=== PATIENT | male | born 1955 | race Caucasian/White ===

== ENCOUNTER 2020-07-10 00:46 | Observation (INO) | payer MEDICARE, OTHER ==
[~2020-07-10] VITALS: Ht 167.6 cm; Wt 89.2 kg
[2020-07-10 01:08] VITALS: BP 107/68
[2020-07-10] MEDS ORDERED: KETO10DR6 EACHEYE (01:28)
[2020-07-10] MEDS: LORazepam 1 MG TABLET PO PRN ×2 (01:42→07:47)
[2020-07-10] MEDS ORDERED: PARO20TA3 PO (02:19)
[2020-07-10] MEDS ORDERED: MAG355OR11 PO (02:19)
[2020-07-10] MEDS ORDERED: LOPE2CAP3 PO (02:19)
[2020-07-10] MEDS ORDERED: SENN1TAB99 PO (02:19)
[2020-07-10] MEDS ORDERED: POTA10TA12 PO (02:19)
[2020-07-10] MEDS ORDERED: FERR325T14 PO (02:19)
[2020-07-10] MEDS ORDERED: HYDR-2145 PO (02:19)
[2020-07-10] MEDS ORDERED: ATOR20TA58 PO (02:19)
[2020-07-10] MEDS ORDERED: ALBU2.5V8 IH (02:19)
[2020-07-10] MEDS ORDERED: GUAI600T47 PO (02:19)
[2020-07-10] MEDS ORDERED: POLY17PO5 PO (02:19)
[2020-07-10] MEDS ORDERED: ACET325T21 PO (02:19)
[2020-07-10] MEDS ORDERED: GUAI118L53 PO (02:19)
[2020-07-10] MEDS ORDERED: OXYB15TA18 PO (02:19)
[2020-07-10] MEDS ORDERED: MEMA10TA PO (02:19)
[2020-07-10] MEDS ORDERED: CALC400T33 PO (02:19)
[2020-07-10] MEDS ORDERED: ASPI-889 PO (02:19)
[2020-07-10] MEDS ORDERED: CLON1TAB PO (02:19)
[2020-07-10] MEDS ORDERED: EUCA1LOZ MM (02:19)
[2020-07-10] MEDS ORDERED: AMLO-186 PO (02:19)
[2020-07-10] MEDS ORDERED: POLY15DR27 EACHEYE (02:19)
[2020-07-10] MEDS ORDERED: MINE3.5O4 EACHEYE (02:19)
[2020-07-10] MEDS ORDERED: DIVA250T PO (02:19)
[2020-07-10] MEDS ORDERED: LISI40TA6 PO (02:19)
[2020-07-10] MEDS ORDERED: CHOL200019 PO (02:19)
[2020-07-10] MEDS ORDERED: RISP1TAB88 PO (02:19)
[2020-07-10] MEDS ORDERED: METF500T16 PO (02:19)
[2020-07-10 05:51] VITALS: BP 139/89
--- NOTE | 2020-07-10 06:23 | EKG ---
[address] [address] Test Date: 2020-07-10 Test Time: 04:58:21 Pat Name: YANIRA RENE Department: Room: 107 A Gender: M Salvationist: : 1955 Requested By: HUI GARCIA Order Number: [id number] Reading MD: Measurements Intervals [place] Rate: 62 P: AL: QRS: 54 QRSD: 108 T: 41 QT: 412 QTc: 420 Interpretive Statements IRREGULAR RHYTHM, NO P-WAVE FOUND OTHERWISE NORMAL ECG RI6.01 No previous ECG available for comparison
[2020-07-10 06:24] LABS: BASO % 1 % (0-3); EOS # 0.3 x10^3/uL (0.0-0.7); EOS % 4 % (0-3); HEMOGLOBIN 14.4 g/dL (13.0-17.5); LYMPH # 1.4 x10^3/uL (1.0-4.8); LYMPH % 20 % (24-48); MEAN CORPUSCULAR HEMOGLOBIN 30 pg (25-35); MEAN CORPUSCULAR HGB CONC 34 g/dL (31-37); MEAN CORPUSCULAR VOLUME 88 fL (79-100); MONO # 0.7 x10^3/uL (0.0-1.1); MONO % 9 % (0-9); NEUT # 4.8 x10^3uL (1.8-7.7); NEUT % 66 % (31-73); PLATELET COUNT 213 x10^3/uL (140-400); RED BLOOD COUNT 4.79 x10^6/uL (4.30-5.70); RED CELL DISTRIBUTION WIDTH 14.9 % (11.5-14.5); WHITE BLOOD COUNT 7.3 x10^3/uL (4.0-11.0)
[2020-07-10 06:36] LABS: ALBUMIN 3.6 g/dL (3.4-5.0); ALBUMIN/GLOBULIN RATIO 0.9 (1.0-1.7); CALCIUM 8.4 mg/dL (8.5-10.1); CREATININE 0.8 mg/dL (0.7-1.3); GFR 117.4; MAGNESIUM 1.6 mg/dL (1.8-2.4); POTASSIUM 3.4 mmol/L (3.5-5.1); TOTAL BILIRUBIN 0.7 mg/dL (0.2-1.0); TOTAL PROTEIN 7.7 g/dL (6.4-8.2)
[2020-07-10] MEDS ORDERED: LORazepam 1 MG TABLET PO ONE (08:30)
[2020-07-10 10:10] VITALS: BP 151/83
--- NOTE | 2020-07-10 10:42 | HP ---
ATTENDING PHYSICIAN: Dr. Harvey. HISTORY OF PRESENT ILLNESS: We are asked to admit this patient to the medical unit prior to going to the [facility] Unit. The patient is a 65-year-old gentleman from a shelter in [place], [place]. He has underlying mental retardation, cognitive delay and essential hypertension with diabetes. He is very manic, anxious, yelling out, screening at night, talking loudly, physically aggressive. He was walking out of his room as he nurses constantly what is going to happen. He was sent here for further evaluation at the [facility]. PAST MEDICAL HISTORY: As noted. ALLERGIES: He has allergies to DOXYCYCLINE, exact reaction is unclear. CURRENT MEDICATIONS: Include Tylenol, albuterol, amlodipine, aspirin, Lipitor, calcium, cholecalciferol, clonazepam, Depakote, ferrous sulfate, guaifenesin, hydrochlorothiazide, ketoprofen, lisinopril, loperamide, Namenda, metformin, oxybutynin, Paxil, MiraLax, artificial tears, potassium, risperidone and senna. SOCIAL HISTORY: He is a nonsmoker and nondrinker. He has never . One brother is a durable power of commercial attorney. REVIEW OF SYSTEMS: Unobtainable except for the issues that brought him here. PHYSICAL EXAMINATION: GENERAL: When I saw him this is a very anxious and fatuous gentleman who was unable to stay in his room. INITIAL VITAL SIGNS: Showed a blood pressure 130/80, pulse is 59 and regular, afebrile, oxygen saturation 97% on room air. HEENT: Head is without trauma. Pupils are reactive. Sclerae nonicteric. Oropharynx clear. NECK: Supple. LUNGS: Good breath sounds. HEART: Regular heart tones. ABDOMEN: Soft. EXTREMITIES: Without edema. NEUROLOGIC FINDING: Pleasantly confused. We cannot do a full neurologic assessment due to patient's mentation. SKIN: Warm and dry.. PERTINENT LABORATORY STUDIES: Hemoglobin is 14.4 g/dL, white count 7300. Electrolytes: Sodium 138, potassium 3.4 mEq, creatinine 0.8. Transaminases and liver panel all within normal range. Serology for COVID is pending. ASSESSMENT: A 65-year-old gentleman with; 1. Dementia. 2. Cognitive delay. 3. Anxiety with behavioral issues. 4. Essential hypertension. PLAN: 1. Admit to the inpatient unit. 2. Await coronavirus swab. 3. Continue home meds. 4. Diet as tolerated. MARCO A/LATANYA/GEORGE DR: MARCO A/leilani TID: [id number]
--- NOTE | 2020-07-10 14:08 | DS ---
DATE OF DISCHARGE: 07/10/2020 ATTENDING PHYSICIAN: Dr. Harvey. FINAL DISCHARGE DIAGNOSES: 1. Agitation with manic phase. 2. Developmental delay. 3. Mental retardation. 4. Essential hypertension. HISTORY AND PHYSICAL: This 65-year-old gentleman, [facility] resident, has multiple psychiatric issues, developmental delay and anxiety. He had behavioral issues. He was slated to go to the [facility]. He was admitted here for evaluation and screening for COVID-19. He has no COVID symptoms. PHYSICAL EXAMINATION: Please see the dictated note. PERTINENT LABORATORY AND X-RAY STUDIES: CBC and chemistry panel within normal range. Coronavirus swab is still pending. COURSE IN THE HOSPITAL: The patient was admitted. He was given some p.r.n. Ativan. He was very agitated, walking around and really has no insight. Because of his issues and staffing, he was discharged to the [facility] with coronavirus swab pending, most likely will be negative. No changes on his home meds. He needs to continue his Tylenol, albuterol, amlodipine, aspirin, Lipitor, calcium, Klonopin, Depakote, ferrous sulfate, guaifenesin, hydrochlorothiazide, ketoprofen, Namenda, metformin, mineral oil, oxybutynin, paroxetine, MiraLax, potassium, risperidone and senna doses unchanged. He was discharged then from our hospital in stable condition with explicit drug and followup care. MARCO A/LAATNYA/MARC DR: MARCO A/leilani TID: [id number] CC: BRE WYLIE MD
[2020-07-10] MEDS ORDERED: LOPE2TAB27 PO (15:45)
[2020-07-10 16:31] LABS: THYROID STIM HORMONE (TSH) 2.004 uIU/mL (0.358-3.740)
[2020-07-10 23:07] LABS: HEMOGLOBIN A1C 5.4 % (4.8-5.6)
== END 2020-07-10 11:15 ==
LOC: 1 SOUTH 00:46
PROVIDERS: ADMIT Hospitalist; ATTEND Hospitalist
DX: F03.90 Unspecified dementia, unspecified severity, without behavioral disturbance, psychotic disturbance, mood disturbance, and anxiety (principal); Z20.822 Contact with and (suspected) exposure to COVID-19; R45.1 Restlessness and agitation; F79 Unspecified intellectual disabilities; I10 Essential (primary) hypertension; E11.9 Type 2 diabetes mellitus without complications; F41.9 Anxiety disorder, unspecified; Z79.82 Long term (current) use of aspirin; Z79.84 Long term (current) use of oral hypoglycemic drugs
CPT/HCPCS: 36415; 80053; 80061; 82306; 82607; 82947; 83036; 83735; 84443; 85025; 85379; 86592; 93005; G0378; G0379; U0003

== ENCOUNTER 2020-07-10 11:18 | Inpatient (IN) | payer MEDICARE, OTHER ==
[~2020-07-10] VITALS: Ht 167.6 cm; Wt 95.8 kg
[2020-07-10 11:15] VITALS: BP 102/69
[~2020-07-10 11:18] MED LIST: ACET325T21 PO; ALBU2.5V8 IH; AMLO-186 PO; ASPI-889 PO; ATOR20TA58 PO; CALC400T33 PO; CHOL200019 PO; CLON1TAB PO; DIVA250T PO; EUCA1LOZ MM; FERR325T14 PO; GUAI118L53 PO; GUAI600T47 PO; HYDR-2145 PO; KETO10DR6 EACHEYE; LISI40TA6 PO; LOPE2CAP3 PO; MAG355OR11 PO; MEMA10TA PO; METF500T16 PO; MINE3.5O4 EACHEYE; OXYB15TA18 PO; PARO20TA3 PO; POLY15DR27 EACHEYE; POLY17PO5 PO; POTA10TA12 PO; RISP1TAB88 PO; SENN1TAB99 PO
[2020-07-10] MEDS ORDERED: METHYL SALICYLATE/MENTHOL TOPICAL OINTMENT 57GM TUBE. TP PRN (12:30)
[2020-07-10] MEDS ORDERED: ACETAMINOPHEN 325 MG TABLET PO PRN (12:30)
[2020-07-10] MEDS ORDERED: MAGNESIUM HYDROXIDE 2,400 MG/30 ML ORAL.SUSP. PO PRN (12:30)
[2020-07-10] MEDS ORDERED: MAG HYDROX/AL HYDROX/SIMETH 30 ML ORAL.SUSP PO PRN ×2 (12:30→16:30)
[2020-07-10 12:58] LABS: VAL ACID 3 mcg/mL (50-100)
[2020-07-10] MEDS ORDERED: POLYVINYL ALCOHOL 1.4% OPHTH SOLUTION 15ML BOTTLE. OU PRN (15:30)
[2020-07-10] MEDS ORDERED: POLYETHYLENE GLYCOL 3350 17 GM PACKET. PO PRN (15:30)
[2020-07-10] MEDS ORDERED: SENNOSIDES/DOCUSATE 8.6/50MG TABLET. PO PRN (15:30)
[2020-07-10] MEDS ORDERED: ALBUTEROL SULFATE 2.5 MG/3 ML NEBU. IH PRN (15:30)
[2020-07-10] MEDS ORDERED: LOPERAMIDE 2 MG CAPSULE PO PRN ×2 (15:30→16:30)
[2020-07-10 15:34] VITALS: BP 125/78
[2020-07-10] MEDS ORDERED: LOPE2TAB27 PO (15:45)
[2020-07-10] MEDS ORDERED: CALCIUM CARBONATE 500 MG TAB.CHEW PO PRN (16:15)
[2020-07-10] MEDS ORDERED: BENZOCAINE/MENTHOL LOZNGE 18'S BOX. PO PRN (16:15)
[2020-07-10] MEDS ORDERED: guaiFENesin DM 200MG/20MG 10 ML SYRUP PO PRN (16:15)
[2020-07-10] MEDS: ATORVASTATIN CALCIUM 20 MG TABLET PO SCH (20:30)
[2020-07-10] MEDS: risperiDONE 1 MG TABLET. PO SCH (20:30)
[2020-07-10] MEDS: OXYBUTYNIN CHLORIDE 5 MG TABLET PO SCH (20:30)
[2020-07-10] MEDS: MEMANTINE 10 MG TABLET. PO SCH (20:30)
[2020-07-10] MEDS: FERROUS SULFATE 325 MG TABLET. PO SCH (20:30)
[2020-07-10] MEDS: clonazePAM 2 MG TABLET PO SCH (20:30)
[2020-07-10] MEDS: KETOTIFEN FUMARATE 0.025% OPHT SOLUTION BOTTLE. OU SCH (20:30)
[2020-07-10] MEDS: DIVALPROEX ER 250 MG TAB.ER.24H. PO SCH (20:30)
[2020-07-10 21:26] LABS: BILIRUBIN,URINE NEG (NEG); CLARITY,URINE CLEAR; COLOR,URINE YELLOW; GLUCOSE,URINE NEG (NEG); NITRITE,URINE NEG (NEG)
[2020-07-10 21:27] LABS: BACTERIA,URINE 0 /HPF (0-FEW); RBC,URINE 0 /HPF (0-2); SQUAMOUS EPITHELIAL CELL,UR OCC /LPF; WBC,URINE 0 /HPF (0-4)
--- NOTE | 2020-07-10 22:49 | PDOC ---
Exam Note: Anthony Note: Please also refer to the separate dictated note~for this date of service dictated separately.~Patient seen individually. Discussed the patient with Nursing staff reviewed the chart.~Reviewed interim history and current functioning. Reviewed vital signs,~Labs/ Radiology~and current medications noted below. Continue current treatment with the changes noted in the dictated addendum note Assessment: Vital Signs/I&O: Vital Signs Date Time Temp Pulse Resp B/P (MAP) Pulse Ox O2 Delivery O2 Flow Rate FiO2 07/10/20 15:34 97.5 74 16 125/78 (94) 99 07/10/20 11:15 Room Air Labs: Laboratory Tests Test 07/10/20 05:50 07/10/20 20:41 Valproic Acid Level 3 mcg/mL (50-100) L Valproic Acid Last Dose Date 07/10/20 Valproic Acid Last Dose Time 0900 Urine Collection Type Unknown Urine Color Yellow Urine Clarity Clear Urine pH 6.5 Urine Specific [place] 1.015 Urine Protein Neg (NEG-TRACE) Urine Glucose (UA) Neg mg/dL (NEG) Urine Ketones (Stick) Neg mg/dL (NEG) Urine Blood Trace (NEG) Urine Nitrite Neg (NEG) Urine Bilirubin Neg (NEG) Urine Urobilinogen Dipstick 2.0 mg/dL (0.2 mg/dL) Urine Leukocyte Esterase Neg (NEG) Urine RBC 0 /HPF (0-2) Urine WBC 0 /HPF (0-4) Urine Squamous Epithelial Cells Occ /LPF Urine Bacteria 0 /HPF (0-FEW) Current Medications: Meds: Current Medications Medications (Trade) Dose Ordered Sig/Davida Route PRN Reason Start Time Stop Time Status Last Admin Dose Admin Atorvastatin Calcium (Lipitor) 20 mg QHS PO 07/10/20 21:00 07/10/20 20:30 Clonazepam (KlonoPIN) 2 mg TID PO 07/10/20 21:00 07/10/20 20:30 Divalproex Sodium (Depakote Er) 250 mg TID PO 07/10/20 21:00 07/10/20 20:30 Ferrous Sulfate (Feosol) 325 mg BID PO 07/10/20 21:00 07/10/20 20:30 Memantine (Namenda) 10 mg BID PO 07/10/20 21:00 07/10/20 20:30 Risperidone (RisperDAL) 1 mg BID PO 07/10/20 21:00 07/10/20 20:30 Oxybutynin Chloride (Ditropan) 5 mg [id number] PO 07/10/20 21:00 07/10/20 20:30 I have reviewed the current psychotropics carefully including drug interactions. Risk benefit ratio favors no change other than as noted in my dictated progress note. Diagnosis: Problems: (1) Caroline BRE WYLIE MD July 10, 2020 22:49
[2020-07-11 02:07] LABS: THYROXINE 8.9 ug/dL (4.5-12.0)
[2020-07-11 06:28] VITALS: BP 126/71
[2020-07-11] MEDS: risperiDONE 1 MG TABLET. PO SCH ×2 (08:14→20:12)
[2020-07-11] MEDS: OXYBUTYNIN CHLORIDE 5 MG TABLET PO SCH ×3 (08:14→20:13)
[2020-07-11] MEDS: ASPIRIN ENTERIC COATED 81 MG TABLET.DR. PO SCH (08:14)
[2020-07-11] MEDS: hydroCHLOROthiazide 25 MG TABLET PO SCH (08:14)
[2020-07-11] MEDS: clonazePAM 2 MG TABLET PO SCH ×3 (08:14→20:13)
[2020-07-11] MEDS: CHOLECALCIFEROL (VITAMIN D3) 1,000 UNIT TABLET PO SCH (08:15)
[2020-07-11] MEDS: amLODIPine BESYLATE 5 MG TABLET PO SCH (08:15)
[2020-07-11] MEDS: FERROUS SULFATE 325 MG TABLET. PO SCH ×2 (08:15→20:12)
[2020-07-11] MEDS: PARoxetine 20 MG TABLET PO SCH (08:15)
[2020-07-11] MEDS: POTASSIUM CHLORIDE 10 MEQ TABLET.ER. PO SCH (08:15)
[2020-07-11] MEDS: MEMANTINE 10 MG TABLET. PO SCH ×2 (08:15→20:13)
[2020-07-11] MEDS: LISINOPRIL 20 MG TABLET PO SCH (08:16)
[2020-07-11] MEDS: KETOTIFEN FUMARATE 0.025% OPHT SOLUTION BOTTLE. OU SCH ×2 (08:16→20:12)
[2020-07-11] MEDS: DIVALPROEX ER 250 MG TAB.ER.24H. PO SCH ×3 (08:16→20:12)
[2020-07-11] MEDS: metFORMIN 500 MG TABLET PO SCH (08:16)
[2020-07-11] MEDS: MINERAL OIL/PETROLATUM,WHITE OPHTH OINT 3.5GM TUBE. OU SCH (12:00)
[2020-07-11 16:14] VITALS: BP 144/75
[2020-07-11] MEDS: ATORVASTATIN CALCIUM 20 MG TABLET PO SCH (20:13)
--- NOTE | 2020-07-11 22:01 | PDOC ---
Exam Note: Anthony Note: Please also refer to the separate dictated note~for this date of service dictated separately.~Patient seen individually. Discussed the patient with Nursing staff reviewed the chart.~Reviewed interim history and current functioning. Reviewed vital signs,~Labs/ Radiology~and current medications noted below. Continue current treatment with the changes noted in the dictated addendum note Assessment: Vital Signs/I&O: Vital Signs Date Time Temp Pulse Resp B/P (MAP) Pulse Ox O2 Delivery O2 Flow Rate FiO2 07/11/20 16:14 98.0 74 20 144/75 (98) 98 Room Air I & O 07/10/20 07/10/20 07/11/20 15:00 23:00 07:00 Intake Total 240 ml 480 ml 120 ml Balance 240 ml 480 ml 120 ml Current Medications: Meds: Current Medications Medications (Trade) Dose Ordered Sig/Davida Route PRN Reason Start Time Stop Time Status Last Admin Dose Admin Acetaminophen (Tylenol) 650 mg PRN Q6HRS PRN PO MILD PAIN / TEMP > 100.3'F 07/10/20 12:30 Multi-Ingredient Ointment (Analgesic [place]) 1 marvel PRN QID PRN TP MUSCLE PAIN 07/10/20 12:30 Al Hydroxide/Mg Hydroxide (Mylanta Plus Xs) 15 ml PRN AFTMEALHC PRN PO DYSPEPSIA 07/10/20 12:30 Cancel Magnesium Hydroxide (Milk Of Magnesia) 2,400 mg PRN QHS PRN PO 2ND CHOICE CONSTIPATION 07/10/20 12:30 Albuterol Sulfate (Ventolin) 2.5 mg PRN Q4HRS PRN IH FOR ASTHMA 07/10/20 15:30 Amlodipine Besylate (Norvasc) 5 mg DAILY PO 07/11/20 09:00 07/11/20 08:15 Aspirin (Aspirin Enteric Coated) 81 mg DAILY08 PO 07/11/20 08:00 07/11/20 08:14 Atorvastatin Calcium (Lipitor) 20 mg QHS PO 07/10/20 21:00 07/11/20 20:13 Clonazepam (KlonoPIN) 2 mg TID PO 07/10/20 21:00 07/11/20 20:13 Divalproex Sodium (Depakote Er) 250 mg TID PO 07/10/20 21:00 07/11/20 20:12 Ferrous Sulfate (Feosol) 325 mg BID PO 07/10/20 21:00 07/11/20 20:12 Guaifenesin (Mucinex Er) 600 mg PRN Q12HR PRN PO nasal congestion 07/10/20 15:30 Hydrochlorothiazide (Hydrodiuril) 25 mg DAILYWBKFT PO 07/11/20 08:00 07/11/20 08:14 Ketotifen Fumarate (Zaditor) 1 drop BID OU 07/10/20 21:00 07/11/20 20:12 Loperamide HCl (Imodium) 4 mg PRN DAILY PRN PO FIRST OCCURANCE OF DIARRHEA 07/10/20 15:30 Memantine (Namenda) 10 mg BID PO 07/10/20 21:00 07/11/20 20:13 Metformin HCl (Glucophage) 500 mg DAILYWBKFT PO 07/11/20 08:00 07/11/20 08:16 Paroxetine HCl (Paxil) 40 mg DAILY PO 07/11/20 09:00 07/11/20 08:15 Polyethylene Glycol (miraLAX) 17 gm PRN DAILY PRN PO 1ST CHOICE CONSTIPATION 07/10/20 15:30 Artificial Tears (Artificial Tears) 1 drop PRN Q1HR PRN OU itchy eyes 07/10/20 15:30 Potassium Chloride (Klor-Con) 10 meq DAILY08 PO 07/11/20 08:00 07/11/20 08:15 Risperidone (RisperDAL) 1 mg BID PO 07/10/20 21:00 07/11/20 20:12 Senna/Docusate Sodium (Senna Plus) 2 tab PRN BID PRN PO 3RD CHOICE CONSTIPATION 07/10/20 15:30 Calcium Carbonate/ Glycine (Tums) 1,000 mg PRN Q4HRS PRN PO HEARTBURN / GAS 07/10/20 16:15 Vitamin D (Vitamin D3) 2,000 unit DAILY PO 07/11/20 09:00 07/11/20 08:15 Throat Lozenges (Cepacol Sore Throat Lozenge) 1 danna PRN Q2HR PRN PO SORE THROAT 07/10/20 16:15 Guaifenesin (Robitussin Dm) 10 ml PRN Q4HRS PRN PO COUGH 07/10/20 16:15 Lisinopril (Prinivil) 40 mg DAILY PO 07/11/20 09:00 07/11/20 08:16 Loperamide HCl (Imodium) 2 mg PRN Q1HR PRN PO DIARRHEA 07/10/20 16:30 Al Hydroxide/Mg Hydroxide (Mylanta Plus Xs) 20 ml PRN Q4HRS PRN PO INDIGESTION 07/10/20 16:30 Multi-Ingred Cream/Lotion/Oil/ Oint (Artificial Tears Eye Ointment) 1 marvel NOON OU 07/11/20 12:00 07/11/20 12:00 Oxybutynin Chloride (Ditropan) 5 mg [id number] PO 07/10/20 21:00 07/11/20 20:13 Olanzapine (ZyPREXA ZYDIS) 2.5 mg PRN Q2HRS PRN PO PSYCHOSIS 07/10/20 20:00 Current Medications Medications (Trade) Dose Ordered Sig/Davida Route PRN Reason Start Time Stop Time Status Last Admin Dose Admin Amlodipine Besylate (Norvasc) 5 mg DAILY PO 07/11/20 09:00 07/11/20 08:15 Aspirin (Aspirin Enteric Coated) 81 mg DAILY08 PO 07/11/20 08:00 07/11/20 08:14 Hydrochlorothiazide (Hydrodiuril) 25 mg DAILYWBKFT PO 07/11/20 08:00 07/11/20 08:14 Metformin HCl (Glucophage) 500 mg DAILYWBKFT PO 07/11/20 08:00 07/11/20 08:16 Paroxetine HCl (Paxil) 40 mg DAILY PO 07/11/20 09:00 07/11/20 08:15 Potassium Chloride (Klor-Con) 10 meq DAILY08 PO 07/11/20 08:00 07/11/20 08:15 Vitamin D (Vitamin D3) 2,000 unit DAILY PO 07/11/20 09:00 07/11/20 08:15 Lisinopril (Prinivil) 40 mg DAILY PO 07/11/20 09:00 07/11/20 08:16 Multi-Ingred Cream/Lotion/Oil/ Oint (Artificial Tears Eye Ointment) 1 marvel NOON OU 07/11/20 12:00 07/11/20 12:00 I have reviewed the current psychotropics carefully including drug interactions. Risk benefit ratio favors no change other than as noted in my dictated progress note. Diagnosis: Problems: (1) OCD (obsessive compulsive disorder) BRE WYLEI MD July 11, 2020 22:01
--- NOTE | 2020-07-11 22:55 | HP ---
ADMIT DATE: 07/10/2020 PSYCHIATRIC ADMISSION HISTORY/EVALUATION This late entry date of service 07/10 covers elements not covered in my initial note 07/10. I met with the patient evening of 07/10. Discussed with nursing staff, reviewed the chart previously discussed the patient with Yaima Kendall program proposals coordinator and reviewed referral information and criteria for admission. IDENTIFYING DATA: Patient is a 65-year-old male referred to us from [place], [place] on account of increasing manic symptoms with worsening anxiety, yelling out, screaming at night, talking loudly, physically aggressive extremely obsessive, ruminative, repetitive and disruptive on the unit. He had been sent to the Emergency Room and has failed prior inpatient psychiatric hospitalization in the past at [facility] in [place] in May of this year. Reportedly, the patient has mild mental retardation, significant insomnia and a past history of alcohol abuse. CHIEF COMPLAINT: "I need to get the telephone. I need to call my brother. I need to get the telephone. I need to call my brother." The patient has obsessive, ruminative, repetitive with little to no space boundary, putting his face, right next to mine, making the above statements with saliva putting out of his mouth. He has been admitted by his brother Bogdan Garcia who is his legal guardian. HISTORY OF PRESENT ILLNESS: The patient has a history of the above diagnoses and presenting behaviors. Additionally, he has had mood swings, obsessiveness has been mocked and very pronounced and causing significant disruption in his functioning. No active suicidal or homicidal ideation. He has a history of mood swings, questionable history of bipolar disorder. PAST PSYCHIATRIC HISTORY: As above. PAST MEDICAL HISTORY: Positive for hypertension, type 2 diabetes mellitus, history of anemia. PAST SURGICAL HISTORY: Alcohol abuse. CODE STATUS: DNR. ALLERGIES: DOXYCYCLINE. Accu-Cheks daily until A1c comes back. Diet is diabetic. MEDICATIONS: Takes medications whole, ambulates independently. Current psychotropics Klonopin 2 mg t.i.d., Depakote 250 mg t.i.d., valproic acid level on 07/10 is 3 subtherapeutic, Namenda 10 mg b.i.d., Paxil 40 mg a day, Risperdal 1 mg b.i.d., Zyprexa was added p.r.n. psychosis and agitation. FAMILY HISTORY: Noncontributory. SOCIAL HISTORY: Past history of alcohol abuse. No physical, sexual or elder abuse history is noted. He is not known to be a perpetrator. Reaction to hospitalization. Patient somewhat oblivious to this. REVIEW OF SYSTEMS: No CV, , pulmonary, eye, ENT system symptoms on review. Reliability varies. MENTAL STATUS EXAM: Patient is oriented to himself at times and situation. Insight limited. Judgment marginal, language function intact. Attention span short. Mood and affect extremely labile, obsessive, ruminative, paranoid. No active suicidal or homicidal ideation. LABORATORY DATA: Reviewed. IMPRESSION: Possible bipolar disorder, mixed with psychotic features, intellectual disability, mild anxiety disorder unspecified, OCD, impulse control disorder. Rest of diagnoses as above. PLAN: Admit to the Geropsychiatry Unit at [facility]. I will see the patient daily individually from a psychiatric standpoint, medical followup with Dr. Hernandes/Dr. Harvey. Continue current psychotropics, adjust Depakote to reach therapeutic level. Consider reducing the Klonopin, changing Paxil perhaps to Luvox, adjusting the Seroquel, possibly in place of Risperdal. We will make decisions post baseline assessment. Estimated length of stay 10-12 days. DISPOSITION: Plans back to correction when stable. Get past psychiatric records from [facility]. BRENNAN/LALY DR: Mesha TID: [id number]
--- NOTE | 2020-07-12 01:44 | CONS ---
DATE OF CONSULTATION: 07/11/2020 HISTORY OF PRESENT ILLNESS: The patient is a 65-year-old male patient who was admitted directly to [facility] on account of being manic with increased anxiety, yelling out, screaming at nighttime, talking loudly and physically aggressive, all this on a background of mild mental retardation, cognitive delay together with obsessive compulsive disorder, who was admitted for inpatient psychiatric stabilization. PAST MEDICAL HISTORY: Significant for hypertension, type 2 diabetes, hyperlipidemia. PAST SURGICAL HISTORY: Significant for right ankle fracture, status post open reduction internal fixation. He has also had a colonoscopy. FAMILY HISTORY: Noncontributory. SOCIAL HISTORY: He does not smoke, drink alcohol or use recreational drugs. ALLERGIES: He is allergic to DOXYCYCLINE. MEDICATIONS: He is currently on the following medication: He is on albuterol sulfate 2 puffs every 4 hours, ferrous sulfate 325 mg twice a day, atorvastatin calcium 20 mg at bedtime, amlodipine 5 mg daily. He is on lisinopril 40 mg once a day, aspirin 81 mg once a day, acetaminophen 650 mg every 4 hours as needed, clonazepam for Klonopin 2 mg 3 times a day, divalproex sodium 250 mg 3 times a day, paroxetine 40 mg once a day, risperidone 1 mg twice a day, Namenda 10 mg twice a day, potassium chloride 10 mEq once a day, hydrochlorothiazide 25 mg once a day. He is on ____ DM 10 mL every 4 hours, Mucinex 600 mg twice a day, quetiapine fumarate 1 drop to both eyes twice a day, eucalyptus menthol cough drops as needed. He is on Systane nighttime eye ointment 1 application to both eyes at nighttime, Artificial tears 1 drop to both eyes every 4 hours as needed, calcium carbonate 1000 mg every 4 hours. He is on Maalox 20 mL after meals and as needed, loperamide 4 mg daily as needed, polyethylene glycol 17 grams daily, Senna-S 2 tablets twice a day, metformin 500 mg once a day, oxybutynin chloride 15 mg at bedtime, cholecalciferol vitamin D 50 mcg once a day. PHYSICAL EXAMINATION: GENERAL: When I examined him, he was sitting comfortably in his chair, in no apparent respiratory distress. There was no pallor, jaundice, cyanosis, thyromegaly, jugular distention, no lower limb edema. VITAL SIGNS: His heart rate was 74, blood pressure is 144/75, temperature was 98, respiratory rate 20, and oxygen saturation was 98%. HEAD, EYES, EARS, NOSE, AND THROAT: Normocephalic, atraumatic. NECK: Supple. HEART: Normal first and second heart sounds, no gallop, no murmur. CHEST: Clear to auscultation. No crepitation or rhonchi. ABDOMEN: Distended, soft, nontender. NEUROLOGIC: He is oriented. Cranial nerves are intact. He moves extremities without difficulty, ambulates without assistance or assistive devices. LABORATORY DATA: His lab work showed that his total T4 and total T3 are normal. Urinalysis essentially unremarkable and toxic screen showed his valproic acid was extremely low at 3 mcg/mL within therapeutic range of 50-100. The rest of lab work are still pending at the time of this dictation. ASSESSMENT: In summary, this is a 65-year-old male patient who was admitted on account of being manic, increasingly anxious, yelling out, screaming at nighttime, talking loudly and physically aggressive, all this on a background of mild mental retardation, cognitive delay and obsessive compulsive disorder. Medically, the patient has multiple medical problems including hypertension, hyperlipidemia and type 2 diabetes mellitus. He also had insomnia. PLAN: My plan is to obviously continue all his current medications. I will review his lab work, they are still pending and make any necessary recommendation. Thank you, Dr. Echeverria, for allowing me to participate in the care of this patient. DIANA DR: Shamika TID: [id number]
[2020-07-12 06:57] VITALS: BP 150/83
[2020-07-12] MEDS: metFORMIN 500 MG TABLET PO SCH (08:08)
[2020-07-12] MEDS: OXYBUTYNIN CHLORIDE 5 MG TABLET PO SCH ×3 (08:09→21:15)
[2020-07-12] MEDS: POTASSIUM CHLORIDE 10 MEQ TABLET.ER. PO SCH (08:09)
[2020-07-12] MEDS: amLODIPine BESYLATE 5 MG TABLET PO SCH (08:09)
[2020-07-12] MEDS: risperiDONE 1 MG TABLET. PO SCH ×2 (08:09→21:15)
[2020-07-12] MEDS: FERROUS SULFATE 325 MG TABLET. PO SCH ×2 (08:09→21:15)
[2020-07-12] MEDS: CHOLECALCIFEROL (VITAMIN D3) 1,000 UNIT TABLET PO SCH (08:10)
[2020-07-12] MEDS: PARoxetine 20 MG TABLET PO SCH (08:10)
[2020-07-12] MEDS: DIVALPROEX ER 250 MG TAB.ER.24H. PO SCH ×3 (08:10→21:15)
[2020-07-12] MEDS: clonazePAM 2 MG TABLET PO SCH ×3 (08:10→21:15)
[2020-07-12] MEDS: hydroCHLOROthiazide 25 MG TABLET PO SCH (08:10)
[2020-07-12] MEDS: ASPIRIN ENTERIC COATED 81 MG TABLET.DR. PO SCH (08:10)
[2020-07-12] MEDS: KETOTIFEN FUMARATE 0.025% OPHT SOLUTION BOTTLE. OU SCH ×2 (08:11→21:15)
[2020-07-12] MEDS: LISINOPRIL 20 MG TABLET PO SCH (08:11)
[2020-07-12] MEDS: MEMANTINE 10 MG TABLET. PO SCH ×2 (08:11→21:15)
--- NOTE | 2020-07-12 09:25 | PN ---
DATE: 07/11/2020 This note covers elements not covered in my initial note, 07/11. SUBJECTIVE: The patient was seen on rounds the evening of 07/11. Discussed with ALIDA Flood. The patient slept 5-3/4 hours the previous night. He has been repetitive, obsessive again, crowding me on my face ____ repetitively asking to make telephone calls. Noncompliant with cares, intrusive. He is paranoid, somewhat delusional, talking about knives in the hospital. Unclear what this is. No CV, , pulmonary, eye or ENT system symptoms on review. MENTAL STATUS EXAMINATION: Oriented to himself and situation. Speech rapid, repetitive, coherent. Abstraction fair. Computation impaired. Language function intact. Attention span short. Mood and affect labile. LABORATORY DATA: Reviewed. IMPRESSION: Rule out bipolar disorder, mixed with psychotic features; intellectual disability; anxiety disorder, unspecified; impulse control disorder, unspecified. PLAN: Continue current psychotropics mentioned in my initial note. We will adjust Depakote to reach therapeutic level. Maintain the rest of the psychotropics, unchanged for now. BRENNAN/LUTHER DR: Mesha TID: [id number]
[2020-07-12] MEDS: MINERAL OIL/PETROLATUM,WHITE OPHTH OINT 3.5GM TUBE. OU SCH (12:00)
[2020-07-12 15:58] VITALS: BP 106/68
--- NOTE | 2020-07-12 18:03 | TX PLAN ---
Interdisciplinary Tx Plan Admission Information July 10, 2020 at 11:18 Legal Status (on Admission): Voluntary DPOA/Guardian Name: Claudia Garcia Contact Other Contact Name: Camila Other Contact Verified Code Status: DNR Allergies: Coded Allergies: doxycycline (Verified Allergy, Mild, rash, 07/10/20) Diagnoses Primary Diagnosis: Psychosis unspecified Reasons for Admission: Aggressive, Agitated, Anxiety/Panic, Confusion/Disoriented, Poor impulse control Problem in Patient's Words: Pt does not wish to return to his placement at [facility] Additional Admission Comments: According the intake pt was admitted from [facility] ED for reportedly being manic, physically aggressive, anxious, and demanding to be allowed to leave [facility]. Problems Active Problems: manic anxious obsessive Inactive Problems: medication management Pt Strengths/Limitations Ability for [place]: Poor Cognitive Functioning/Ability: Fair Communication Skills/Ability: Poor Financial Resources: Fair Insight/Judgement: Poor Intellectual Ability: Poor Physical Health: Fair Social Skills: Poor Stability in Family: Excellent Stability in School/Work: Poor Verbal Skills: Fair Discharge Criteria Discharge Criteria: No need for close observ., Adequate arrangements @DC, Improved behavior, Improved mood/thought Preliminary Discharge Plan Preliminary DC Plan: Current Living Arrange., Other Special Precautions Fall Risk: Moderate Initial D/C Plan Pt may return to [facility] versus a different facility Identified Discharge Needs: Potential for higher level of care referrals Currently Utilized Resources Currently Utilized Resources/P: Primary Care Physician Identified Problems/Hx/Goals Objectives/Short-Term Goals Short Term Goals: Dec. Aggression, Dec. Outbursts, Improved Social Skills, Medication Stabilization, Monitor Med Effects Short Term Goals in Patient's: I don't want to go back to [facility] Interventions/Frequency Staff Interventions/Frequency&: Psychiatrist to assess pt at least 3x per week for medication mgmt. Social Work to assess pt at least 2x per week to identify barriers to care and finalize discharge planning. Nursing to assess medication effects, behavior modification, and completion of 15 minute checks daily. Encouarge participation in group activities (if applicable) adorno 1:1 engagement based off activity goals. History Vocational History: Pt worked at [employer] for less than a year because he could not follow directions and created trouble with his behavior. 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 Education: In the 3rd grade, teachers noticed that pt was not doing well and decided to have him tested. 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 Pt did graduate high school, although e was a year or two behind when he completed 12th grade. Community Follow-up Primary Care Physician Treatment Plan Explained Patient/Professional Programmer Analyst had this treatment plan explained to him/her as indicated by the signature below and has been given the opportunity to ask questions and make suggestions: Date: Patient/Professional Programmer Analyst Signature: Patient/Professional Programmer Analyst Decline: No (Pt family very active in pt care.) AZALEA ALFRED July 12, 2020 18:03
[2020-07-12] MEDS: ATORVASTATIN CALCIUM 20 MG TABLET PO SCH (21:15)
[2020-07-13 06:08] VITALS: BP 155/84
[2020-07-13] MEDS: KETOTIFEN FUMARATE 0.025% OPHT SOLUTION BOTTLE. OU SCH ×3 (06:31→21:22)
[2020-07-13 06:41] LABS: BASO # 0.1 x10^3/uL (0.0-0.2); BASO % 1 % (0-3); EOS # 0.3 x10^3/uL (0.0-0.7); EOS % 4 % (0-3); HEMATOCRIT 39.8 % (39.0-53.0); HEMOGLOBIN 13.3 g/dL (13.0-17.5); LYMPH # 1.5 x10^3/uL (1.0-4.8); LYMPH % 21 % (24-48); MEAN CORPUSCULAR HEMOGLOBIN 30 pg (25-35); MEAN CORPUSCULAR HGB CONC 34 g/dL (31-37); MEAN CORPUSCULAR VOLUME 89 fL (79-100); MONO # 0.5 x10^3/uL (0.0-1.1); MONO % 8 % (0-9); NEUT # 4.8 x10^3uL (1.8-7.7); NEUT % 67 % (31-73); PLATELET COUNT 193 x10^3/uL (140-400); RED BLOOD COUNT 4.49 x10^6/uL (4.30-5.70); RED CELL DISTRIBUTION WIDTH 15.3 % (11.5-14.5); WHITE BLOOD COUNT 7.1 x10^3/uL (4.0-11.0)
[2020-07-13 06:56] LABS: ALBUMIN 3.4 g/dL (3.4-5.0); ALBUMIN/GLOBULIN RATIO 0.9 (1.0-1.7); ALK PHOS 63 U/L (46-116); ALT (SGPT) 24 U/L (16-63); ANION GAP 5 (6-14); AST (SGOT) 18 U/L (15-37); BLOOD UREA NITROGEN 13 mg/dL (8-26); BUN/CREATININE RATIO 14 (6-20); CALCIUM 8.5 mg/dL (8.5-10.1); CARBON DIOXIDE 33 mmol/L (21-32); CHLORIDE 102 mmol/L (98-107); CREATININE 0.9 mg/dL (0.7-1.3); GFR 84.7; GLUCOSE 126 mg/dL (70-99); POTASSIUM 3.6 mmol/L (3.5-5.1); SODIUM 140 mmol/L (136-145); TOTAL BILIRUBIN 0.6 mg/dL (0.2-1.0); TOTAL PROTEIN 7.2 g/dL (6.4-8.2)
[2020-07-13 06:57] LABS: VAL ACID 44 mcg/mL (50-100)
--- NOTE | 2020-07-13 08:14 | PDOC ---
Exam Note: Anthony Note: This note is a late entry for 07/12/2020 covers elements not covered in my initial note. Subjective: The patient was reviewed in the morning of 07/12/2020 for a treatment team meeting with Yaima Webb, Serina Christianson and Kamila (social secretary), Keke, activity therapy and Fernando IRWIN, discussed and reviewed the chart. The patient slept 6-1/4 hours previous night. The patient remains extremely obsessive, repetitive, does not seem to have any boundaries. He talks almost spitting out of his mouth, puts his face right next to whoever he is talking to. He remains obsessed, repetitive. Also discussed with Yaya IRWIN in the evening. Review of Systems: Ambulation impaired in wheelchair. No CV, , eye, ENT system symptoms on review. Mental Status Exam: The patient is oriented to himself and situation. Speech rapid, coherent. Abstraction fair. Computation impaired. Language function intact. Attention span short. Mood and affect remains labile. Laboratory Data: Reviewed. Impression: Obsessive-compulsive disorder. Intellectual disability. Anxiety disorder unspecified. Impulse control disorder unspecified. Plan: I have carefully reviewed the patients current psychotropics. We will change the Paxil to Luvox 25 mg a day for 2 days, then 50 mg a day for 2 days, then 75 mg a day. Maintain Risperdal, Zyprexa p.r.n., Klonopin, Depakene. We have increased the Zyprexa maximum p.r.n. in 24 hours from 15 mg to 20 mg. We will check CBC, CMP, valproic acid level in the morning. Rest unchanged for now. Assessment: Vital Signs/I&O: Vital Signs Date Time Temp Pulse Resp B/P (MAP) Pulse Ox O2 Delivery O2 Flow Rate FiO2 07/13/20 06:08 97.6 71 20 155/84 (107) 100 07/12/20 15:58 Room Air I & O 07/12/20 07/12/20 07/13/20 14:59 22:59 06:59 Intake Total 580 ml 480 ml Balance 580 ml 480 ml Labs: Laboratory Tests Test 07/13/20 06:15 White Blood Count 7.1 x10^3/uL (4.0-11.0) Red Blood Count 4.49 x10^6/uL (4.30-5.70) Hemoglobin 13.3 g/dL (13.0-17.5) Hematocrit 39.8 % (39.0-53.0) Mean Corpuscular Volume 89 fL (79-100) Mean Corpuscular Hemoglobin 30 pg (25-35) Mean Corpuscular Hemoglobin Concent 34 g/dL (31-37) Red Cell Distribution Width 15.3 % (11.5-14.5) H Platelet Count 193 x10^3/uL (140-400) Neutrophils (%) (Auto) 67 % (31-73) Lymphocytes (%) (Auto) 21 % (24-48) L Monocytes (%) (Auto) 8 % (0-9) Eosinophils (%) (Auto) 4 % (0-3) H Basophils (%) (Auto) 1 % (0-3) Neutrophils # (Auto) 4.8 x10^3uL (1.8-7.7) Lymphocytes # (Auto) 1.5 x10^3/uL (1.0-4.8) Monocytes # (Auto) 0.5 x10^3/uL (0.0-1.1) Eosinophils # (Auto) 0.3 x10^3/uL (0.0-0.7) Basophils # (Auto) 0.1 x10^3/uL (0.0-0.2) Sodium Level 140 mmol/L (136-145) Potassium Level 3.6 mmol/L (3.5-5.1) Chloride Level 102 mmol/L (98-107) Carbon Dioxide Level 33 mmol/L (21-32) H Anion Gap 5 (6-14) L Blood Urea Nitrogen 13 mg/dL (8-26) Creatinine 0.9 mg/dL (0.7-1.3) Estimated GFR (Cockcroft-Gault) 84.7 BUN/Creatinine Ratio 14 (6-20) Glucose Level 126 mg/dL (70-99) H Calcium Level 8.5 mg/dL (8.5-10.1) Total Bilirubin 0.6 mg/dL (0.2-1.0) Aspartate Amino Transferase (AST) 18 U/L (15-37) Alanine Aminotransferase (ALT) 24 U/L (16-63) Alkaline Phosphatase 63 U/L (46-116) Total Protein 7.2 g/dL (6.4-8.2) Albumin 3.4 g/dL (3.4-5.0) Albumin/Globulin Ratio 0.9 (1.0-1.7) L Valproic Acid Level 44 mcg/mL (50-100) L Valproic Acid Last Dose Date 07/12/20 Valproic Acid Last Dose Time 2100 Current Medications: Meds: Laboratory Tests Test 07/13/20 06:15 White Blood Count 7.1 x10^3/uL Red Blood Count 4.49 x10^6/uL Hemoglobin 13.3 g/dL Hematocrit 39.8 % Mean Corpuscular Volume 89 fL Mean Corpuscular Hemoglobin 30 pg Mean Corpuscular Hemoglobin Concent 34 g/dL Red Cell Distribution Width 15.3 % Platelet Count 193 x10^3/uL Neutrophils (%) (Auto) 67 % Lymphocytes (%) (Auto) 21 % Monocytes (%) (Auto) 8 % Eosinophils (%) (Auto) 4 % Basophils (%) (Auto) 1 % Neutrophils # (Auto) 4.8 x10^3uL Lymphocytes # (Auto) 1.5 x10^3/uL Monocytes # (Auto) 0.5 x10^3/uL Eosinophils # (Auto) 0.3 x10^3/uL Basophils # (Auto) 0.1 x10^3/uL Sodium Level 140 mmol/L Potassium Level 3.6 mmol/L Chloride Level 102 mmol/L Carbon Dioxide Level 33 mmol/L Anion Gap 5 Blood Urea Nitrogen 13 mg/dL Creatinine 0.9 mg/dL Estimated GFR (Cockcroft-Gault) 84.7 BUN/Creatinine Ratio 14 Glucose Level 126 mg/dL Calcium Level 8.5 mg/dL Total Bilirubin 0.6 mg/dL Aspartate Amino Transf (AST/SGOT) 18 U/L Alanine Aminotransferase (ALT/SGPT) 24 U/L Alkaline Phosphatase 63 U/L Total Protein 7.2 g/dL Albumin 3.4 g/dL Albumin/Globulin Ratio 0.9 Valproic Acid (Depakene) Level 44 mcg/mL Valproic Acid Last Dose Date 07/12/20 Valproic Acid Last Dose Time 2100 Current Medications Medications (Trade) Dose Ordered Sig/Davida Route PRN Reason Start Time Stop Time Status Last Admin Dose Admin Acetaminophen (Tylenol) 650 mg PRN Q6HRS PRN PO MILD PAIN / TEMP > 100.3'F 07/10/20 12:30 Multi-Ingredient Ointment (Analgesic [place]) 1 marvel PRN QID PRN TP MUSCLE PAIN 07/10/20 12:30 Al Hydroxide/Mg Hydroxide (Mylanta Plus Xs) 15 ml PRN AFTMEALHC PRN PO DYSPEPSIA 07/10/20 12:30 Cancel Magnesium Hydroxide (Milk Of Magnesia) 2,400 mg PRN QHS PRN PO 2ND CHOICE CONSTIPATION 07/10/20 12:30 Albuterol Sulfate (Ventolin) 2.5 mg PRN Q4HRS PRN IH FOR ASTHMA 07/10/20 15:30 Amlodipine Besylate (Norvasc) 5 mg DAILY PO 07/11/20 09:00 07/12/20 08:09 Aspirin (Aspirin Enteric Coated) 81 mg DAILY08 PO 07/11/20 08:00 07/12/20 08:10 Atorvastatin Calcium (Lipitor) 20 mg QHS PO 07/10/20 21:00 07/12/20 21:15 Clonazepam (KlonoPIN) 2 mg TID PO 07/10/20 21:00 07/12/20 21:15 Divalproex Sodium (Depakote Er) 250 mg TID PO 07/10/20 21:00 07/12/20 21:15 Ferrous Sulfate (Feosol) 325 mg BID PO 07/10/20 21:00 07/12/20 21:15 Guaifenesin (Mucinex Er) 600 mg PRN Q12HR PRN PO nasal congestion 07/10/20 15:30 Hydrochlorothiazide (Hydrodiuril) 25 mg DAILYWBKFT PO 07/11/20 08:00 07/12/20 08:10 Ketotifen Fumarate (Zaditor) 1 drop BID OU 07/10/20 21:00 07/13/20 06:31 Loperamide HCl (Imodium) 4 mg PRN DAILY PRN PO FIRST OCCURANCE OF DIARRHEA 07/10/20 15:30 Memantine (Namenda) 10 mg BID PO 07/10/20 21:00 07/12/20 21:15 Metformin HCl (Glucophage) 500 mg DAILYWBKFT PO 07/11/20 08:00 07/12/20 08:08 Paroxetine HCl (Paxil) 40 mg DAILY PO 07/11/20 09:00 07/12/20 11:47 DC 07/12/20 08:10 Polyethylene Glycol (miraLAX) 17 gm PRN DAILY PRN PO 1ST CHOICE CONSTIPATION 07/10/20 15:30 Artificial Tears (Artificial Tears) 1 drop PRN Q1HR PRN OU itchy eyes 07/10/20 15:30 Potassium Chloride (Klor-Con) 10 meq DAILY08 PO 07/11/20 08:00 07/12/20 08:09 Risperidone (RisperDAL) 1 mg BID PO 07/10/20 21:00 07/12/20 21:15 Senna/Docusate Sodium (Senna Plus) 2 tab PRN BID PRN PO 3RD CHOICE CONSTIPATION 07/10/20 15:30 Calcium Carbonate/ Glycine (Tums) 1,000 mg PRN Q4HRS PRN PO HEARTBURN / GAS 07/10/20 16:15 Vitamin D (Vitamin D3) 2,000 unit DAILY PO 07/11/20 09:00 07/12/20 08:10 Throat Lozenges (Cepacol Sore Throat Lozenge) 1 danna PRN Q2HR PRN PO SORE THROAT 07/10/20 16:15 Guaifenesin (Robitussin Dm) 10 ml PRN Q4HRS PRN PO COUGH 07/10/20 16:15 Lisinopril (Prinivil) 40 mg DAILY PO 07/11/20 09:00 07/12/20 08:11 Loperamide HCl (Imodium) 2 mg PRN Q1HR PRN PO DIARRHEA 07/10/20 16:30 Al Hydroxide/Mg Hydroxide (Mylanta Plus Xs) 20 ml PRN Q4HRS PRN PO INDIGESTION 07/10/20 16:30 Multi-Ingred Cream/Lotion/Oil/ Oint (Artificial Tears Eye Ointment) 1 marvel NOON OU 07/11/20 12:00 07/12/20 12:00 Oxybutynin Chloride (Ditropan) 5 mg [id number] PO 07/10/20 21:00 07/12/20 21:15 Olanzapine (ZyPREXA ZYDIS) 2.5 mg PRN Q2HRS PRN PO PSYCHOSIS 07/10/20 20:00 Fluvoxamine Maleate (Luvox) 25 mg DAILY PO 07/13/20 09:00 07/14/20 09:05 Fluvoxamine Maleate (Luvox) 50 mg DAILY PO 07/15/20 09:00 07/16/20 09:05 Fluvoxamine Maleate (Luvox) 75 mg DAILY PO 07/17/20 09:00 I have reviewed the current psychotropics carefully including drug interactions. Risk benefit ratio favors no change other than as noted in my dictated progress note. Diagnosis: Problems: (1) Intellectual disability (2) Anxiety disorder, unspecified (3) Impulse control disorder, unspecified (4) OCD (obsessive compulsive disorder) BRE WYLIE MD July 13, 2020 08:14
[2020-07-13] MEDS: ASPIRIN ENTERIC COATED 81 MG TABLET.DR. PO SCH (08:40)
[2020-07-13] MEDS: metFORMIN 500 MG TABLET PO SCH (08:40)
[2020-07-13] MEDS: clonazePAM 2 MG TABLET PO SCH ×3 (08:40→21:28)
[2020-07-13] MEDS: CHOLECALCIFEROL (VITAMIN D3) 1,000 UNIT TABLET PO SCH (08:40)
[2020-07-13] MEDS: MEMANTINE 10 MG TABLET. PO SCH ×2 (08:41→21:28)
[2020-07-13] MEDS: OXYBUTYNIN CHLORIDE 5 MG TABLET PO SCH ×3 (08:41→21:23)
[2020-07-13] MEDS: FERROUS SULFATE 325 MG TABLET. PO SCH ×2 (08:41→21:23)
[2020-07-13] MEDS: risperiDONE 1 MG TABLET. PO SCH ×2 (08:41→21:23)
[2020-07-13] MEDS: hydroCHLOROthiazide 25 MG TABLET PO SCH (08:41)
[2020-07-13] MEDS: DIVALPROEX ER 250 MG TAB.ER.24H. PO SCH ×3 (08:41→21:23)
[2020-07-13] MEDS: POTASSIUM CHLORIDE 10 MEQ TABLET.ER. PO SCH (08:42)
[2020-07-13] MEDS: amLODIPine BESYLATE 5 MG TABLET PO SCH (08:42)
[2020-07-13] MEDS: LISINOPRIL 20 MG TABLET PO SCH (08:42)
[2020-07-13] MEDS: MINERAL OIL/PETROLATUM,WHITE OPHTH OINT 3.5GM TUBE. OU SCH (12:00)
[2020-07-13 16:01] VITALS: BP 108/69
[2020-07-13] MEDS: ATORVASTATIN CALCIUM 20 MG TABLET PO SCH (21:23)
--- NOTE | 2020-07-13 21:59 | PDOC ---
Exam Note: Anthony Note: Please also refer to the separate dictated note~for this date of service dictated separately.~Patient seen individually. Discussed the patient with Nursing staff reviewed the chart.~Reviewed interim history and current functioning. Reviewed vital signs,~Labs/ Radiology~and current medications noted below. Continue current treatment with the changes noted in the dictated addendum note Assessment: Vital Signs/I&O: Vital Signs Date Time Temp Pulse Resp B/P (MAP) Pulse Ox O2 Delivery O2 Flow Rate FiO2 07/13/20 16:01 97.8 67 18 108/69 (82) 98 07/12/20 15:58 Room Air I & O 07/12/20 07/12/20 07/13/20 15:00 23:00 07:00 Intake Total 580 ml 480 ml Balance 580 ml 480 ml Labs: Laboratory Tests Test 07/13/20 06:15 White Blood Count 7.1 x10^3/uL (4.0-11.0) Red Blood Count 4.49 x10^6/uL (4.30-5.70) Hemoglobin 13.3 g/dL (13.0-17.5) Hematocrit 39.8 % (39.0-53.0) Mean Corpuscular Volume 89 fL (79-100) Mean Corpuscular Hemoglobin 30 pg (25-35) Mean Corpuscular Hemoglobin Concent 34 g/dL (31-37) Red Cell Distribution Width 15.3 % (11.5-14.5) H Platelet Count 193 x10^3/uL (140-400) Neutrophils (%) (Auto) 67 % (31-73) Lymphocytes (%) (Auto) 21 % (24-48) L Monocytes (%) (Auto) 8 % (0-9) Eosinophils (%) (Auto) 4 % (0-3) H Basophils (%) (Auto) 1 % (0-3) Neutrophils # (Auto) 4.8 x10^3uL (1.8-7.7) Lymphocytes # (Auto) 1.5 x10^3/uL (1.0-4.8) Monocytes # (Auto) 0.5 x10^3/uL (0.0-1.1) Eosinophils # (Auto) 0.3 x10^3/uL (0.0-0.7) Basophils # (Auto) 0.1 x10^3/uL (0.0-0.2) Sodium Level 140 mmol/L (136-145) Potassium Level 3.6 mmol/L (3.5-5.1) Chloride Level 102 mmol/L (98-107) Carbon Dioxide Level 33 mmol/L (21-32) H Anion Gap 5 (6-14) L Blood Urea Nitrogen 13 mg/dL (8-26) Creatinine 0.9 mg/dL (0.7-1.3) Estimated GFR (Cockcroft-Gault) 84.7 BUN/Creatinine Ratio 14 (6-20) Glucose Level 126 mg/dL (70-99) H Calcium Level 8.5 mg/dL (8.5-10.1) Total Bilirubin 0.6 mg/dL (0.2-1.0) Aspartate Amino Transferase (AST) 18 U/L (15-37) Alanine Aminotransferase (ALT) 24 U/L (16-63) Alkaline Phosphatase 63 U/L (46-116) Total Protein 7.2 g/dL (6.4-8.2) Albumin 3.4 g/dL (3.4-5.0) Albumin/Globulin Ratio 0.9 (1.0-1.7) L Valproic Acid Level 44 mcg/mL (50-100) L Valproic Acid Last Dose Date 07/12/20 Valproic Acid Last Dose Time 2100 Current Medications: Meds: Laboratory Tests Test 07/13/20 06:15 White Blood Count 7.1 x10^3/uL Red Blood Count 4.49 x10^6/uL Hemoglobin 13.3 g/dL Hematocrit 39.8 % Mean Corpuscular Volume 89 fL Mean Corpuscular Hemoglobin 30 pg Mean Corpuscular Hemoglobin Concent 34 g/dL Red Cell Distribution Width 15.3 % Platelet Count 193 x10^3/uL Neutrophils (%) (Auto) 67 % Lymphocytes (%) (Auto) 21 % Monocytes (%) (Auto) 8 % Eosinophils (%) (Auto) 4 % Basophils (%) (Auto) 1 % Neutrophils # (Auto) 4.8 x10^3uL Lymphocytes # (Auto) 1.5 x10^3/uL Monocytes # (Auto) 0.5 x10^3/uL Eosinophils # (Auto) 0.3 x10^3/uL Basophils # (Auto) 0.1 x10^3/uL Sodium Level 140 mmol/L Potassium Level 3.6 mmol/L Chloride Level 102 mmol/L Carbon Dioxide Level 33 mmol/L Anion Gap 5 Blood Urea Nitrogen 13 mg/dL Creatinine 0.9 mg/dL Estimated GFR (Cockcroft-Gault) 84.7 BUN/Creatinine Ratio 14 Glucose Level 126 mg/dL Calcium Level 8.5 mg/dL Total Bilirubin 0.6 mg/dL Aspartate Amino Transf (AST/SGOT) 18 U/L Alanine Aminotransferase (ALT/SGPT) 24 U/L Alkaline Phosphatase 63 U/L Total Protein 7.2 g/dL Albumin 3.4 g/dL Albumin/Globulin Ratio 0.9 Valproic Acid (Depakene) Level 44 mcg/mL Valproic Acid Last Dose Date 07/12/20 Valproic Acid Last Dose Time 2100 Current Medications Medications (Trade) Dose Ordered Sig/Davida Route PRN Reason Start Time Stop Time Status Last Admin Dose Admin Acetaminophen (Tylenol) 650 mg PRN Q6HRS PRN PO MILD PAIN / TEMP > 100.3'F 07/10/20 12:30 Multi-Ingredient Ointment (Analgesic [place]) 1 marvel PRN QID PRN TP MUSCLE PAIN 07/10/20 12:30 Al Hydroxide/Mg Hydroxide (Mylanta Plus Xs) 15 ml PRN AFTMEALHC PRN PO DYSPEPSIA 07/10/20 12:30 Cancel Magnesium Hydroxide (Milk Of Magnesia) 2,400 mg PRN QHS PRN PO 2ND CHOICE CONSTIPATION 07/10/20 12:30 Albuterol Sulfate (Ventolin) 2.5 mg PRN Q4HRS PRN IH FOR ASTHMA 07/10/20 15:30 Amlodipine Besylate (Norvasc) 5 mg DAILY PO 07/11/20 09:00 07/13/20 08:42 Aspirin (Aspirin Enteric Coated) 81 mg DAILY08 PO 07/11/20 08:00 07/13/20 08:40 Atorvastatin Calcium (Lipitor) 20 mg QHS PO 07/10/20 21:00 07/13/20 21:23 Clonazepam (KlonoPIN) 2 mg TID PO 07/10/20 21:00 07/13/20 21:28 Divalproex Sodium (Depakote Er) 250 mg TID PO 07/10/20 21:00 07/13/20 21:23 Ferrous Sulfate (Feosol) 325 mg BID PO 07/10/20 21:00 07/13/20 21:23 Guaifenesin (Mucinex Er) 600 mg PRN Q12HR PRN PO nasal congestion 07/10/20 15:30 Hydrochlorothiazide (Hydrodiuril) 25 mg DAILYWBKFT PO 07/11/20 08:00 07/13/20 08:41 Ketotifen Fumarate (Zaditor) 1 drop BID OU 07/10/20 21:00 07/13/20 21:22 Loperamide HCl (Imodium) 4 mg PRN DAILY PRN PO FIRST OCCURANCE OF DIARRHEA 07/10/20 15:30 Memantine (Namenda) 10 mg BID PO 07/10/20 21:00 07/13/20 21:28 Metformin HCl (Glucophage) 500 mg DAILYWBKFT PO 07/11/20 08:00 07/13/20 08:40 Paroxetine HCl (Paxil) 40 mg DAILY PO 07/11/20 09:00 07/12/20 11:47 DC 07/12/20 08:10 Polyethylene Glycol (miraLAX) 17 gm PRN DAILY PRN PO 1ST CHOICE CONSTIPATION 07/10/20 15:30 Artificial Tears (Artificial Tears) 1 drop PRN Q1HR PRN OU itchy eyes 07/10/20 15:30 Potassium Chloride (Klor-Con) 10 meq DAILY08 PO 07/11/20 08:00 07/13/20 08:42 Risperidone (RisperDAL) 1 mg BID PO 07/10/20 21:00 07/13/20 21:23 Senna/Docusate Sodium (Senna Plus) 2 tab PRN BID PRN PO 3RD CHOICE CONSTIPATION 07/10/20 15:30 Calcium Carbonate/ Glycine (Tums) 1,000 mg PRN Q4HRS PRN PO HEARTBURN / GAS 07/10/20 16:15 Vitamin D (Vitamin D3) 2,000 unit DAILY PO 07/11/20 09:00 07/13/20 08:40 Throat Lozenges (Cepacol Sore Throat Lozenge) 1 danna PRN Q2HR PRN PO SORE THROAT 07/10/20 16:15 Guaifenesin (Robitussin Dm) 10 ml PRN Q4HRS PRN PO COUGH 07/10/20 16:15 Lisinopril (Prinivil) 40 mg DAILY PO 07/11/20 09:00 07/13/20 08:42 Loperamide HCl (Imodium) 2 mg PRN Q1HR PRN PO DIARRHEA 07/10/20 16:30 Al Hydroxide/Mg Hydroxide (Mylanta Plus Xs) 20 ml PRN Q4HRS PRN PO INDIGESTION 07/10/20 16:30 Multi-Ingred Cream/Lotion/Oil/ Oint (Artificial Tears Eye Ointment) 1 marvel NOON OU 07/11/20 12:00 07/13/20 12:00 Oxybutynin Chloride (Ditropan) 5 mg [id number] PO 07/10/20 21:00 07/13/20 21:23 Olanzapine (ZyPREXA ZYDIS) 2.5 mg PRN Q2HRS PRN PO PSYCHOSIS 07/10/20 20:00 07/13/20 08:43 Fluvoxamine Maleate (Luvox) 25 mg DAILY PO 07/13/20 09:00 07/14/20 09:05 07/13/20 08:41 Fluvoxamine Maleate (Luvox) 50 mg DAILY PO 07/15/20 09:00 07/16/20 09:05 Fluvoxamine Maleate (Luvox) 75 mg DAILY PO 07/17/20 09:00 Current Medications Medications (Trade) Dose Ordered Sig/Davida Route PRN Reason Start Time Stop Time Status Last Admin Dose Admin Fluvoxamine Maleate (Luvox) 25 mg DAILY PO 07/13/20 09:00 07/14/20 09:05 07/13/20 08:41 I have reviewed the current psychotropics carefully including drug interactions. Risk benefit ratio favors no change other than as noted in my dictated progress note. Diagnosis: Problems: (1) OCD (obsessive compulsive disorder) (2) Impulse control disorder, unspecified (3) Anxiety disorder, unspecified (4) Intellectual disability BRE WYLIE MD July 13, 2020 21:59
[2020-07-14 06:12] VITALS: BP 118/78
[2020-07-14] MEDS: risperiDONE 1 MG TABLET. PO SCH ×2 (08:24→19:27)
[2020-07-14] MEDS: CHOLECALCIFEROL (VITAMIN D3) 1,000 UNIT TABLET PO SCH (08:24)
[2020-07-14] MEDS: LISINOPRIL 20 MG TABLET PO SCH (08:25)
[2020-07-14] MEDS: OXYBUTYNIN CHLORIDE 5 MG TABLET PO SCH ×3 (08:25→19:27)
[2020-07-14] MEDS: ASPIRIN ENTERIC COATED 81 MG TABLET.DR. PO SCH (08:25)
[2020-07-14] MEDS: POTASSIUM CHLORIDE 10 MEQ TABLET.ER. PO SCH (08:25)
[2020-07-14] MEDS: MEMANTINE 10 MG TABLET. PO SCH ×2 (08:26→19:27)
[2020-07-14] MEDS: hydroCHLOROthiazide 25 MG TABLET PO SCH (08:26)
[2020-07-14] MEDS: FERROUS SULFATE 325 MG TABLET. PO SCH ×2 (08:26→19:27)
[2020-07-14] MEDS: amLODIPine BESYLATE 5 MG TABLET PO SCH (08:26)
[2020-07-14] MEDS: metFORMIN 500 MG TABLET PO SCH (08:26)
[2020-07-14] MEDS: DIVALPROEX ER 250 MG TAB.ER.24H. PO SCH ×3 (08:26→19:27)
[2020-07-14] MEDS: clonazePAM 2 MG TABLET PO SCH ×3 (08:30→19:27)
[2020-07-14] MEDS: MINERAL OIL/PETROLATUM,WHITE OPHTH OINT 3.5GM TUBE. OU SCH (12:00)
[2020-07-14 16:10] VITALS: BP 104/65
[2020-07-14] MEDS: ATORVASTATIN CALCIUM 20 MG TABLET PO SCH (19:27)
[2020-07-14] MEDS: KETOTIFEN FUMARATE 0.025% OPHT SOLUTION BOTTLE. OU SCH (19:27)
--- NOTE | 2020-07-15 01:59 | PN ---
DATE: 07/14/2020 SUBJECTIVE: The patient was seen today, met with staff, chart reviewed, and also covering for Dr. Echeverria. Staff reports increased behavior problems, being intrusive, following the staff and constantly asking questions. The patient also tends to perseverate and also obsessive-compulsive behaviors. OBSERVATION: VITAL SIGNS: Temperature 97.2, blood pressure 118/78, pulse 55, respirations 16, O2 sat 97%. GENERAL: Slept about 6 hours last night. The patient's appetite improved. MEDICATIONS: The patient's current medications include fluvoxamine 75 mg daily plus 50 mg daily, Risperdal 1 mg twice a day, Namenda 10 mg twice a day, Depakote 250 mg t.i.d., clonazepam 2 mg t.i.d. LABORATORY DATA: The patient's labs reviewed. The patient's Depakote level was 44. ASSESSMENT: 1. Obsessive-compulsive disorder. 2. Bipolar disorder with psychotic features. 3. Impulse control disorder, unspecified. PLAN: Continue with the current treatment. Length of stay is [address]: Tatiana TID: [id number] [facility]
[2020-07-15 06:22] VITALS: BP 105/71
[2020-07-15] MEDS: KETOTIFEN FUMARATE 0.025% OPHT SOLUTION BOTTLE. OU SCH ×2 (08:00→20:42)
[2020-07-15] MEDS: MEMANTINE 10 MG TABLET. PO SCH ×2 (08:00→20:42)
[2020-07-15] MEDS: FERROUS SULFATE 325 MG TABLET. PO SCH ×2 (08:01→20:42)
[2020-07-15] MEDS: clonazePAM 2 MG TABLET PO SCH ×3 (08:01→20:42)
[2020-07-15] MEDS: DIVALPROEX ER 250 MG TAB.ER.24H. PO SCH ×3 (08:01→20:43)
[2020-07-15] MEDS: ASPIRIN ENTERIC COATED 81 MG TABLET.DR. PO SCH (08:01)
[2020-07-15] MEDS: POTASSIUM CHLORIDE 10 MEQ TABLET.ER. PO SCH (08:01)
[2020-07-15] MEDS: CHOLECALCIFEROL (VITAMIN D3) 1,000 UNIT TABLET PO SCH (08:01)
[2020-07-15] MEDS: risperiDONE 1 MG TABLET. PO SCH ×2 (08:01→20:42)
[2020-07-15] MEDS: metFORMIN 500 MG TABLET PO SCH (08:02)
[2020-07-15] MEDS: LISINOPRIL 20 MG TABLET PO SCH (08:02)
[2020-07-15] MEDS: hydroCHLOROthiazide 25 MG TABLET PO SCH (08:02)
[2020-07-15] MEDS: OXYBUTYNIN CHLORIDE 5 MG TABLET PO SCH ×3 (08:02→20:42)
[2020-07-15] MEDS: amLODIPine BESYLATE 5 MG TABLET PO SCH (08:03)
[2020-07-15] MEDS: MINERAL OIL/PETROLATUM,WHITE OPHTH OINT 3.5GM TUBE. OU SCH (12:00)
[2020-07-15 16:21] VITALS: BP 119/73
[2020-07-15] MEDS: ATORVASTATIN CALCIUM 20 MG TABLET PO SCH (20:43)
--- NOTE | 2020-07-16 03:01 | PN ---
DATE: 07/15/2020 SUBJECTIVE: The patient was seen today, met with the staff. Chart was reviewed and also covering for Dr. Echeverria. The patient continues to have behavior problems being intrusive, following the staff constantly and asking questions. The patient also exhibiting some obsessive compulsive behavior, repetitive statements. OBSERVATION: VITAL SIGNS: Temperature 97.5, blood pressure 105/71, pulse 69, respirations 18, O2 sat 96 percent. Slept about 6 hours last night. His appetite is normal. The patient is not having any side effects to medications. CURRENT MEDICATIONS: Include fluvoxamine 75 mg daily and 50 mg daily, Risperdal 1 mg twice a day, Namenda 10 mg twice a day, Depakote 250 mg t.i.d. and clonazepam 2 mg t.i.d. LABORATORY DATA: The patient's lab reviewed. ASSESSMENT: Obsessive-compulsive disorder, bipolar disorder with psychotic features. PLAN: To continue with the treatment. LENGTH OF STAY: 7 days and plans to return to [facility] when stable. OCRRY/LACHELLE DR: Tatiana TID: [id number] [facility]
[2020-07-16 06:40] VITALS: BP 136/88
[2020-07-16] MEDS: DIVALPROEX ER 250 MG TAB.ER.24H. PO SCH ×3 (08:14→20:19)
[2020-07-16] MEDS: ASPIRIN ENTERIC COATED 81 MG TABLET.DR. PO SCH (08:14)
[2020-07-16] MEDS: metFORMIN 500 MG TABLET PO SCH (08:14)
[2020-07-16] MEDS: hydroCHLOROthiazide 25 MG TABLET PO SCH (08:14)
[2020-07-16] MEDS: amLODIPine BESYLATE 5 MG TABLET PO SCH (08:14)
[2020-07-16] MEDS: OXYBUTYNIN CHLORIDE 5 MG TABLET PO SCH ×3 (08:15→20:19)
[2020-07-16] MEDS: clonazePAM 2 MG TABLET PO SCH ×3 (08:15→20:19)
[2020-07-16] MEDS: risperiDONE 1 MG TABLET. PO SCH ×2 (08:15→20:19)
[2020-07-16] MEDS: FERROUS SULFATE 325 MG TABLET. PO SCH ×2 (08:15→20:19)
[2020-07-16] MEDS: LISINOPRIL 20 MG TABLET PO SCH (08:15)
[2020-07-16] MEDS: MEMANTINE 10 MG TABLET. PO SCH ×2 (08:15→20:19)
[2020-07-16] MEDS: CHOLECALCIFEROL (VITAMIN D3) 1,000 UNIT TABLET PO SCH (08:15)
[2020-07-16] MEDS: POTASSIUM CHLORIDE 10 MEQ TABLET.ER. PO SCH (08:15)
[2020-07-16] MEDS: KETOTIFEN FUMARATE 0.025% OPHT SOLUTION BOTTLE. OU SCH ×2 (08:16→20:19)
[2020-07-16] MEDS: MINERAL OIL/PETROLATUM,WHITE OPHTH OINT 3.5GM TUBE. OU SCH (12:06)
[2020-07-16 16:15] VITALS: BP 128/83
[2020-07-16] MEDS: ATORVASTATIN CALCIUM 20 MG TABLET PO SCH (20:19)
[2020-07-17 06:19] VITALS: BP 134/61
[2020-07-17] MEDS: KETOTIFEN FUMARATE 0.025% OPHT SOLUTION BOTTLE. OU SCH ×2 (08:16→20:18)
[2020-07-17] MEDS: FERROUS SULFATE 325 MG TABLET. PO SCH ×2 (08:17→20:18)
[2020-07-17] MEDS: clonazePAM 2 MG TABLET PO SCH ×3 (08:17→20:18)
[2020-07-17] MEDS: MEMANTINE 10 MG TABLET. PO SCH ×2 (08:17→20:18)
[2020-07-17] MEDS: hydroCHLOROthiazide 25 MG TABLET PO SCH (08:17)
[2020-07-17] MEDS: metFORMIN 500 MG TABLET PO SCH (08:17)
[2020-07-17] MEDS: ASPIRIN ENTERIC COATED 81 MG TABLET.DR. PO SCH (08:17)
[2020-07-17] MEDS: risperiDONE 1 MG TABLET. PO SCH ×2 (08:18→20:18)
[2020-07-17] MEDS: POTASSIUM CHLORIDE 10 MEQ TABLET.ER. PO SCH (08:18)
[2020-07-17] MEDS: DIVALPROEX ER 250 MG TAB.ER.24H. PO SCH ×3 (08:18→20:18)
[2020-07-17] MEDS: OXYBUTYNIN CHLORIDE 5 MG TABLET PO SCH ×3 (08:18→20:18)
[2020-07-17] MEDS: CHOLECALCIFEROL (VITAMIN D3) 1,000 UNIT TABLET PO SCH (08:18)
[2020-07-17] MEDS: LISINOPRIL 20 MG TABLET PO SCH (08:21)
[2020-07-17] MEDS: amLODIPine BESYLATE 5 MG TABLET PO SCH (08:21)
--- NOTE | 2020-07-17 09:47 | PN ---
DATE: 07/16/2020 SUBJECTIVE: The patient was seen today, met with the staff. Chart reviewed. Also covering for Dr. Echeverria. Staff reports no major behavior problem except for increased anxiety and restlessness. The patient continues to be intrusive, demanding, trying to follow the staff. The patient also exhibiting some obsessive compulsive behaviors. OBJECTIVE: OBSERVATION VITAL SIGNS: Temperature 97.5, blood pressure 136/88, pulse 66, respirations 16, O2 sat 99%. Slept about 5 hours last night. The patient's appetite is normal. CURRENT MEDICATIONS: Include fluvoxamine 75 mg daily and 50 mg daily, Risperdal 1 mg twice a day, Namenda 10 mg twice a day, Depakote 250 mg t.i.d. and clonazepam 2 mg t.i.d. p.o. LABORATORY DATA: The patient's lab reviewed. ASSESSMENT: Obsessive-compulsive disorder, bipolar disorder with psychotic features. PLAN: To continue with the treatment. LENGTH OF STAY: Seven days. EDGAR DR: Tatiana TID: [id number] [facility]
[2020-07-17] MEDS: MINERAL OIL/PETROLATUM,WHITE OPHTH OINT 3.5GM TUBE. OU SCH (11:25)
[2020-07-17 16:30] VITALS: BP 100/61
[2020-07-17] MEDS: ATORVASTATIN CALCIUM 20 MG TABLET PO SCH (20:18)
--- NOTE | 2020-07-18 04:00 | PN ---
DATE: 07/17/2020 SUBJECTIVE: The patient was seen today, met with the staff, chart reviewed and covering for Dr. Echeverria. The patient continues to have a high level of anxiety, restlessness, demanding, intrusive problems with boundaries, also exhibiting poor impulse control, low frustration tolerance. OBSERVATION: VITAL SIGNS: Temperature 97.1, blood pressure 100/61, pulse 71, respirations 16 and O2 sat 100%. CURRENT MEDICATIONS: Include fluvoxamine 75 mg daily and 50 mg daily, Risperdal 1 mg twice a day, Namenda 10 mg twice a day, Depakote 250 mg t.i.d. and clonazepam 2 mg t.i.d. p.o. LABORATORY DATA: The patient's lab reviewed. ASSESSMENT: Obsessive-compulsive disorder, bipolar disorder with psychotic features. PLAN: To continue with the treatment. LENGTH OF STAY: 7 days. The patient is awaiting for placement. REBA/BARRON/LACHELLE DR: Tatiana TID: [id number]
[2020-07-18 06:08] VITALS: BP 134/85
[2020-07-18] MEDS: metFORMIN 500 MG TABLET PO SCH (08:03)
[2020-07-18] MEDS: CHOLECALCIFEROL (VITAMIN D3) 1,000 UNIT TABLET PO SCH (08:03)
[2020-07-18] MEDS: KETOTIFEN FUMARATE 0.025% OPHT SOLUTION BOTTLE. OU SCH ×2 (08:03→20:36)
[2020-07-18] MEDS: DIVALPROEX ER 250 MG TAB.ER.24H. PO SCH ×3 (08:04→20:22)
[2020-07-18] MEDS: FERROUS SULFATE 325 MG TABLET. PO SCH ×2 (08:04→20:23)
[2020-07-18] MEDS: OXYBUTYNIN CHLORIDE 5 MG TABLET PO SCH ×3 (08:04→20:23)
[2020-07-18] MEDS: amLODIPine BESYLATE 5 MG TABLET PO SCH (08:04)
[2020-07-18] MEDS: POTASSIUM CHLORIDE 10 MEQ TABLET.ER. PO SCH (08:04)
[2020-07-18] MEDS: risperiDONE 1 MG TABLET. PO SCH ×2 (08:04→20:23)
[2020-07-18] MEDS: MEMANTINE 10 MG TABLET. PO SCH ×2 (08:04→20:23)
[2020-07-18] MEDS: LISINOPRIL 20 MG TABLET PO SCH (08:05)
[2020-07-18] MEDS: hydroCHLOROthiazide 25 MG TABLET PO SCH (08:05)
[2020-07-18] MEDS: ASPIRIN ENTERIC COATED 81 MG TABLET.DR. PO SCH (08:05)
[2020-07-18] MEDS: clonazePAM 2 MG TABLET PO SCH ×3 (08:05→20:23)
[2020-07-18] MEDS: MINERAL OIL/PETROLATUM,WHITE OPHTH OINT 3.5GM TUBE. OU SCH (12:21)
[2020-07-18 16:33] VITALS: BP 106/68
[2020-07-18] MEDS: ATORVASTATIN CALCIUM 20 MG TABLET PO SCH (20:23)
--- NOTE | 2020-07-19 02:10 | PN ---
DATE: 07/18/2020 SUBJECTIVE: The patient was seen today, met with the staff, chart reviewed. The patient continues to be demanding, intrusive, problems with boundaries. The patient also exhibiting poor impulse control, a low frustration tolerance. The patient also exhibits concrete thinking and lack of insight. OBSERVATION: VITAL SIGNS: Temperature 97.1, blood pressure 136/85, pulse 64, respirations 20, O2 sats 100%. GENERAL: Slept about 5 hours last night. The patient's appetite is normal. CURRENT MEDICATIONS: Include fluvoxamine 75 mg daily, Risperdal 1 mg twice a day, Namenda 10 mg b.i.d., Depakote 250 mg t.i.d., clonazepam 2 mg t.i.d. The patient is not having any side effects. ASSESSMENT: 1. Obsessive-compulsive disorder. 2. Bipolar disorder with psychotic features. PLAN: To continue with treatment. LENGTH OF STAY: Seven days. ARIELA DR: Tatiana TID: [id number]
[2020-07-19 05:35] VITALS: BP 156/90
[2020-07-19] MEDS: ASPIRIN ENTERIC COATED 81 MG TABLET.DR. PO SCH (08:00)
[2020-07-19] MEDS: KETOTIFEN FUMARATE 0.025% OPHT SOLUTION BOTTLE. OU SCH ×2 (08:52→20:59)
[2020-07-19] MEDS: metFORMIN 500 MG TABLET PO SCH (08:52)
[2020-07-19] MEDS: risperiDONE 1 MG TABLET. PO SCH (08:52)
[2020-07-19] MEDS: CHOLECALCIFEROL (VITAMIN D3) 1,000 UNIT TABLET PO SCH (08:52)
[2020-07-19] MEDS: FERROUS SULFATE 325 MG TABLET. PO SCH ×2 (08:52→20:58)
[2020-07-19] MEDS: amLODIPine BESYLATE 5 MG TABLET PO SCH (08:52)
[2020-07-19] MEDS: MEMANTINE 10 MG TABLET. PO SCH ×2 (08:53→20:58)
[2020-07-19] MEDS: POTASSIUM CHLORIDE 10 MEQ TABLET.ER. PO SCH (08:53)
[2020-07-19] MEDS: LISINOPRIL 20 MG TABLET PO SCH (08:53)
[2020-07-19] MEDS: OXYBUTYNIN CHLORIDE 5 MG TABLET PO SCH ×3 (08:53→20:58)
[2020-07-19] MEDS: hydroCHLOROthiazide 25 MG TABLET PO SCH (08:53)
[2020-07-19] MEDS: DIVALPROEX ER 250 MG TAB.ER.24H. PO SCH ×2 (08:54→20:59)
[2020-07-19] MEDS: clonazePAM 2 MG TABLET PO SCH ×3 (08:54→20:58)
[2020-07-19] MEDS: MINERAL OIL/PETROLATUM,WHITE OPHTH OINT 3.5GM TUBE. OU SCH (12:00)
[2020-07-19 16:24] VITALS: BP 109/68
--- NOTE | 2020-07-19 17:55 | TX PLAN ---
Interdisciplinary Tx Plan Admission Information July 10, 2020 at 11:18 Legal Status (on Admission): Voluntary DPOA/Guardian Name: Claudia Garcia Contact Other Contact Name: Camila Other Contact Verified Code Status: DNR Allergies: Coded Allergies: doxycycline (Verified Allergy, Mild, rash, 07/10/20) Diagnoses Primary Diagnosis: Psychosis unspecified Reasons for Admission: Aggressive, Agitated, Anxiety/Panic, Confusion/Disoriented, Poor impulse control Problem in Patient's Words: Pt does not wish to return to his placement at [facility] Additional Admission Comments: According the intake pt was admitted from [facility] ED for reportedly being manic, physically aggressive, anxious, and demanding to be allowed to leave [facility]. Problems Active Problems: manic anxious obsessive Inactive Problems: medication management Pt Strengths/Limitations Ability for [place]: Poor Cognitive Functioning/Ability: Fair Communication Skills/Ability: Poor Financial Resources: Fair Insight/Judgement: Poor Intellectual Ability: Poor Physical Health: Fair Social Skills: Poor Stability in Family: Excellent Stability in School/Work: Poor Verbal Skills: Fair Discharge Criteria Discharge Criteria: No need for close observ., Adequate arrangements @DC, Improved behavior, Improved mood/thought Preliminary Discharge Plan Preliminary DC Plan: Current Living Arrange., Other Special Precautions Fall Risk: Moderate Initial D/C Plan Pt may return to [facility] versus a different facility Identified Discharge Needs: Potential for higher level of care referrals Currently Utilized Resources Currently Utilized Resources/P: Primary Care Physician Identified Problems/Hx/Goals Objectives/Short-Term Goals Short Term Goals: Dec. Aggression, Dec. Outbursts, Improved Social Skills, Medication Stabilization, Monitor Med Effects Short Term Goals in Patient's: I don't want to go back to [facility] Interventions/Frequency Staff Interventions/Frequency&: Psychiatrist to assess pt at least 3x per week for medication mgmt. Social Work to assess pt at least 2x per week to identify barriers to care and finalize discharge planning. Nursing to assess medication effects, behavior modification, and completion of 15 minute checks daily. Encouarge participation in group activities (if applicable) adorno 1:1 engagement based off activity goals. History Vocational History: Pt worked at [employer] for less than a year because he could not follow directions and created trouble with his behavior. 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 Education: In the 3rd grade, teachers noticed that pt was not doing well and decided to have him tested. 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 Pt did graduate high school, although e was a year or two behind when he completed 12th grade. Community Follow-up Primary Care Physician Treatment Plan Explained Patient/Splunk Consultant had this treatment plan explained to him/her as indicated by the signature below and has been given the opportunity to ask questions and make suggestions: Date: Patient/Splunk Consultant Signature: Status Update Update Pt is eating 75-100% of meals and sleeping on average 6 hours per night. Pt is medication but continues to be highly obsessive and asking others to pray for his anxiety to lessen. Pt can be agitated and is a point of agitation for other patients. Pt can also be tearful, disruptive and alternates his wish to not return to [facility] at discharge. Pt is difficult to redirect. Pt will have his Risperdal increased to 2mg BID. SW has attempted to contact [facility] a couple times and left messages to discuss discharge. LOY will continue to contact the facility and keep pt family updated on discharge plans. AZALEA ALFRED July 19, 2020 17:55
[2020-07-19] MEDS: risperiDONE 2 MG TABLET. PO SCH (20:58)
[2020-07-19] MEDS: ATORVASTATIN CALCIUM 20 MG TABLET PO SCH (20:59)
[2020-07-20 05:48] VITALS: BP 138/84
[2020-07-20] MEDS: metFORMIN 500 MG TABLET PO SCH (08:04)
[2020-07-20] MEDS: KETOTIFEN FUMARATE 0.025% OPHT SOLUTION BOTTLE. OU SCH ×2 (08:04→21:10)
[2020-07-20] MEDS: DIVALPROEX ER 250 MG TAB.ER.24H. PO SCH (08:05)
[2020-07-20] MEDS: ASPIRIN ENTERIC COATED 81 MG TABLET.DR. PO SCH (08:05)
[2020-07-20] MEDS: clonazePAM 2 MG TABLET PO SCH ×2 (08:05→13:10)
[2020-07-20] MEDS: FERROUS SULFATE 325 MG TABLET. PO SCH ×2 (08:05→21:10)
[2020-07-20] MEDS: hydroCHLOROthiazide 25 MG TABLET PO SCH (08:05)
[2020-07-20] MEDS: amLODIPine BESYLATE 5 MG TABLET PO SCH (08:05)
[2020-07-20] MEDS: POTASSIUM CHLORIDE 10 MEQ TABLET.ER. PO SCH (08:05)
[2020-07-20] MEDS: MEMANTINE 10 MG TABLET. PO SCH ×2 (08:06→21:11)
[2020-07-20] MEDS: risperiDONE 2 MG TABLET. PO SCH ×2 (08:06→21:11)
[2020-07-20] MEDS: CHOLECALCIFEROL (VITAMIN D3) 1,000 UNIT TABLET PO SCH (08:06)
[2020-07-20] MEDS: OXYBUTYNIN CHLORIDE 5 MG TABLET PO SCH ×3 (08:06→21:10)
[2020-07-20] MEDS: LISINOPRIL 20 MG TABLET PO SCH (08:06)
[2020-07-20] MEDS: MINERAL OIL/PETROLATUM,WHITE OPHTH OINT 3.5GM TUBE. OU SCH (11:05)
--- NOTE | 2020-07-20 15:23 | PN ---
DATE: 07/19/2020 SUBJECTIVE: The patient was seen today, met with the staff, chart reviewed. Also participated in the treatment review meeting. Staff reports that he is sleeping better, averages at least six hours at night and has been medication compliant, but exhibiting increased behavioral problems. He is very compulsive, keep repeating the same statements, also following the staff and intrusive, sometimes difficult to redirect. He is also exhibiting increased anxiety. PHYSICAL EXAMINATION: VITAL SIGNS: Temperature 98.4, blood pressure 156/90, pulse 74, respirations 22, O2 sat 100%, slept about 6 hours last night. The patient is not showing any major side effects. CURRENT MEDICATIONS: Include fluvoxamine 75 mg daily, Risperdal 1 mg twice a day, Namenda 10 mg b.i.d., Depakote 250 mg 3 times a day and clonazepam 2 mg t.i.d. p.o. The patient was not having any side effects to medications. ASSESSMENT: 1. Obsessive-compulsive disorder. 2: Bipolar disorder with psychotic features. PLAN: To continue with the treatment. The patient's Risperdal was increased to 2 mg twice a day. LENGTH OF STAY: Seven days. ELIGIO/KEVAN DR: Tatiana TID: [id number]
[2020-07-20 16:05] VITALS: BP 107/70
[2020-07-20] MEDS: clonazePAM 1 MG TABLET PO SCH ×2 (16:49→21:00)
[2020-07-20] MEDS: DIVALPROEX ER 500 MG TAB.ER.24H PO SCH (21:11)
[2020-07-20] MEDS: ATORVASTATIN CALCIUM 20 MG TABLET PO SCH (21:11)
--- NOTE | 2020-07-21 01:48 | PN ---
DATE: 07/20/2020 DATE OF SERVICE: 07/20/2020 SUBJECTIVE: The patient was seen today, met with the staff, chart reviewed. The patient continues to demand, argumentative with the staff, following the staff and constantly asking staff to pray for him. The patient is also irritable, stokes, very demanding, does not follow through rules. The patient is also intrusive. He is also obsessive about discharge plan. OBJECTIVE: VITAL SIGNS: Temperature 97.2, blood pressure 138/84, pulse 62, respirations 20, O2 sat 99%. Slept about 7 hours last night. The patient's appetite normal. CURRENT MEDICATIONS: Reviewed. His clonazepam was decreased to 1 mg q.i.d. from 2 mg t.i.d. p.o. The patient's Depakote was increased to 500 mg in the morning and 1000 mg at night and continue on the Risperdal 2 mg b.i.d. and Zyprexa 2.5 mg q.2 hours p.r.n. The patient will have his Depakote level checked. The patient is also on Luvox to be gradually increased to 75 mg daily. LABORATORY DATA: The patient's lab reviewed. ASSESSMENT: 1. Obsessive-compulsive disorder. 2: Bipolar disorder with psychotic features. PLAN: To continue with the treatment. LENGTH OF STAY: [address]: Tatiana TID: [id number]
[2020-07-21 05:49] VITALS: BP 110/68
[2020-07-21] MEDS: risperiDONE 2 MG TABLET. PO SCH ×2 (07:48→19:31)
[2020-07-21] MEDS: CHOLECALCIFEROL (VITAMIN D3) 1,000 UNIT TABLET PO SCH (07:48)
[2020-07-21] MEDS: POTASSIUM CHLORIDE 10 MEQ TABLET.ER. PO SCH (07:49)
[2020-07-21] MEDS: LISINOPRIL 20 MG TABLET PO SCH (07:49)
[2020-07-21] MEDS: MEMANTINE 10 MG TABLET. PO SCH ×2 (07:49→19:30)
[2020-07-21] MEDS: ASPIRIN ENTERIC COATED 81 MG TABLET.DR. PO SCH (07:49)
[2020-07-21] MEDS: amLODIPine BESYLATE 5 MG TABLET PO SCH (07:50)
[2020-07-21] MEDS: FERROUS SULFATE 325 MG TABLET. PO SCH ×2 (07:50→19:29)
[2020-07-21] MEDS: OXYBUTYNIN CHLORIDE 5 MG TABLET PO SCH ×3 (07:50→19:30)
[2020-07-21] MEDS: KETOTIFEN FUMARATE 0.025% OPHT SOLUTION BOTTLE. OU SCH ×2 (07:51→19:29)
[2020-07-21] MEDS: clonazePAM 1 MG TABLET PO SCH ×4 (07:51→19:30)
[2020-07-21] MEDS: hydroCHLOROthiazide 25 MG TABLET PO SCH (07:51)
[2020-07-21] MEDS: metFORMIN 500 MG TABLET PO SCH (07:51)
[2020-07-21] MEDS: DIVALPROEX ER 500 MG TAB.ER.24H PO SCH ×2 (07:53→19:30)
[2020-07-21 10:02] LABS: BASO % 1 % (0-3); EOS # 0.2 x10^3/uL (0.0-0.7); EOS % 3 % (0-3); HEMATOCRIT 40.9 % (39.0-53.0); HEMOGLOBIN 13.6 g/dL (13.0-17.5); LYMPH # 1.2 x10^3/uL (1.0-4.8); LYMPH % 13 % (24-48); MEAN CORPUSCULAR HEMOGLOBIN 30 pg (25-35); MEAN CORPUSCULAR HGB CONC 33 g/dL (31-37); MEAN CORPUSCULAR VOLUME 89 fL (79-100); MONO # 0.9 x10^3/uL (0.0-1.1); MONO % 10 % (0-9); NEUT # 6.8 x10^3uL (1.8-7.7); NEUT % 74 % (31-73); PLATELET COUNT 212 x10^3/uL (140-400); RED BLOOD COUNT 4.61 x10^6/uL (4.30-5.70); RED CELL DISTRIBUTION WIDTH 15.5 % (11.5-14.5); WHITE BLOOD COUNT 9.1 x10^3/uL (4.0-11.0)
[2020-07-21 10:15] LABS: ALBUMIN 3.4 g/dL (3.4-5.0); ALBUMIN/GLOBULIN RATIO 0.9 (1.0-1.7); CALCIUM 8.5 mg/dL (8.5-10.1); CREATININE 0.8 mg/dL (0.7-1.3); POTASSIUM 3.9 mmol/L (3.5-5.1); TOTAL BILIRUBIN 0.4 mg/dL (0.2-1.0); TOTAL PROTEIN 7.1 g/dL (6.4-8.2)
[2020-07-21] MEDS: MINERAL OIL/PETROLATUM,WHITE OPHTH OINT 3.5GM TUBE. OU SCH (12:00)
[2020-07-21 15:53] VITALS: BP 106/65
[2020-07-21] MEDS: NEOMYCIN/BACI/POLY/HC OPHTH OINTMENT 3.5GM TUBE. OU SCH ×2 (16:50→19:29)
[2020-07-21] MEDS: ATORVASTATIN CALCIUM 20 MG TABLET PO SCH (19:31)
--- NOTE | 2020-07-21 23:52 | PN ---
DATE: 07/21/2020 SUBJECTIVE: The patient was seen today, met with the staff. Chart reviewed and also covering for Dr. Echeverria. Staff reports continued behavior problems, intrusive, demanding, repetitive statements, obsessive compulsive behaviors, constantly asking people to pray for him, holding a Bible and making notes. The patient has been unmanageable part of the time. The patient's medications include Depakote 500 mg at night, Risperdal 3 mg twice a day, Depakote 1000 mg at night, Klonopin 1 mg q.i.d., fluvoxamine 75 mg daily, Namenda 10 mg b.i.d. He is also on olanzapine 2.5 mg q.2 hours p.r.n. The patient is not having any side effects. The patient is able to walk. His appetite is good. ASSESSMENT: 1. Bipolar disorder with psychotic features. 2. Obsessive-compulsive disorder. PLAN: To continue with treatment. LENGTH OF STAY: Seven days. REMEDIOS DR: Tatiana TID: [id number]
[2020-07-22 06:16] VITALS: BP 124/83
[2020-07-22] MEDS: NEOMYCIN/BACI/POLY/HC OPHTH OINTMENT 3.5GM TUBE. OU SCH ×2 (08:11→21:25)
[2020-07-22] MEDS: KETOTIFEN FUMARATE 0.025% OPHT SOLUTION BOTTLE. OU SCH ×2 (08:11→21:25)
[2020-07-22] MEDS: MEMANTINE 10 MG TABLET. PO SCH ×2 (08:12→21:27)
[2020-07-22] MEDS: metFORMIN 500 MG TABLET PO SCH (08:12)
[2020-07-22] MEDS: DIVALPROEX ER 500 MG TAB.ER.24H PO SCH ×2 (08:12→21:26)
[2020-07-22] MEDS: hydroCHLOROthiazide 25 MG TABLET PO SCH (08:12)
[2020-07-22] MEDS: FERROUS SULFATE 325 MG TABLET. PO SCH ×2 (08:13→21:26)
[2020-07-22] MEDS: risperiDONE 2 MG TABLET. PO SCH ×2 (08:13→21:26)
[2020-07-22] MEDS: POTASSIUM CHLORIDE 10 MEQ TABLET.ER. PO SCH (08:13)
[2020-07-22] MEDS: OXYBUTYNIN CHLORIDE 5 MG TABLET PO SCH ×3 (08:14→21:26)
[2020-07-22] MEDS: ASPIRIN ENTERIC COATED 81 MG TABLET.DR. PO SCH (08:14)
[2020-07-22] MEDS: CHOLECALCIFEROL (VITAMIN D3) 1,000 UNIT TABLET PO SCH (08:14)
[2020-07-22] MEDS: LISINOPRIL 20 MG TABLET PO SCH (08:15)
[2020-07-22] MEDS: amLODIPine BESYLATE 5 MG TABLET PO SCH (08:15)
[2020-07-22] MEDS: clonazePAM 1 MG TABLET PO SCH ×4 (08:15→21:26)
[2020-07-22] MEDS: MINERAL OIL/PETROLATUM,WHITE OPHTH OINT 3.5GM TUBE. OU SCH (11:57)
[2020-07-22 16:04] VITALS: BP 99/62
[2020-07-22] MEDS: QUEtiapine 50 MG TABLET. PO SCH ×2 (17:24→21:27)
[2020-07-22] MEDS: ATORVASTATIN CALCIUM 20 MG TABLET PO SCH (21:27)
--- NOTE | 2020-07-22 23:28 | PN ---
DATE: 07/22/2020 SUBJECTIVE: The patient was seen today met with the staff. Chart reviewed and also covering for Dr. Echeverria. Staff reports continued behavior problems. The patient also somewhat threatening towards the staff today. Continues to have obsessive compulsive behavior. The patient also has outbursts of anger and religiously preoccupied also gets upset when he is around people, especially during breakfast, lunch and dinner time. The patient also beginning to show some manic symptoms. The patient appears to be somewhat grandiose, religiously preoccupied and has been smiling lately instead of getting angry. Staff is concerned about his behaviors. OBSERVATION: VITAL SIGNS: Temperature 97.4, blood pressure 124/83, pulse 65, respirations 18, O2 sat __. The patient's medications and labs reviewed. ASSESSMENT: 1. Bipolar disorder with psychotic features. 1. Obsessive-compulsive disorder. PLAN: To continue with the treatment. LENGTH OF STAY: Seven days. RAJWINDER DR: Tatiana TID: [id number]
[2020-07-23 06:02] VITALS: BP 118/73
[2020-07-23 07:46] LABS: BASO % 1 % (0-3); EOS # 0.2 x10^3/uL (0.0-0.7); EOS % 4 % (0-3); HEMATOCRIT 41.8 % (39.0-53.0); HEMOGLOBIN 14.1 g/dL (13.0-17.5); LYMPH % 16 % (24-48); MEAN CORPUSCULAR HEMOGLOBIN 30 pg (25-35); MEAN CORPUSCULAR HGB CONC 34 g/dL (31-37); MEAN CORPUSCULAR VOLUME 89 fL (79-100); MONO # 0.6 x10^3/uL (0.0-1.1); MONO % 9 % (0-9); NEUT # 4.6 x10^3uL (1.8-7.7); NEUT % 72 % (31-73); PLATELET COUNT 206 x10^3/uL (140-400); RED BLOOD COUNT 4.71 x10^6/uL (4.30-5.70); RED CELL DISTRIBUTION WIDTH 15.5 % (11.5-14.5); WHITE BLOOD COUNT 6.5 x10^3/uL (4.0-11.0)
[2020-07-23 08:12] LABS: ALBUMIN 3.4 g/dL (3.4-5.0); ALBUMIN/GLOBULIN RATIO 0.9 (1.0-1.7); CALCIUM 8.4 mg/dL (8.5-10.1); CREATININE 0.7 mg/dL (0.7-1.3); GFR 113.2; POTASSIUM 3.7 mmol/L (3.5-5.1); TOTAL BILIRUBIN 0.5 mg/dL (0.2-1.0); TOTAL PROTEIN 7.4 g/dL (6.4-8.2)
[2020-07-23] MEDS: OXYBUTYNIN CHLORIDE 5 MG TABLET PO SCH ×3 (08:22→21:58)
[2020-07-23] MEDS: NEOMYCIN/BACI/POLY/HC OPHTH OINTMENT 3.5GM TUBE. OU SCH ×2 (08:23→22:00)
[2020-07-23] MEDS: metFORMIN 500 MG TABLET PO SCH (08:23)
[2020-07-23] MEDS: KETOTIFEN FUMARATE 0.025% OPHT SOLUTION BOTTLE. OU SCH ×2 (08:23→21:59)
[2020-07-23] MEDS: POTASSIUM CHLORIDE 10 MEQ TABLET.ER. PO SCH (08:23)
[2020-07-23] MEDS: ASPIRIN ENTERIC COATED 81 MG TABLET.DR. PO SCH (08:23)
[2020-07-23] MEDS: QUEtiapine 50 MG TABLET. PO SCH ×3 (08:25→21:57)
[2020-07-23] MEDS: FERROUS SULFATE 325 MG TABLET. PO SCH ×2 (08:25→21:58)
[2020-07-23] MEDS: hydroCHLOROthiazide 25 MG TABLET PO SCH (08:25)
[2020-07-23] MEDS: amLODIPine BESYLATE 5 MG TABLET PO SCH (08:25)
[2020-07-23] MEDS: MEMANTINE 10 MG TABLET. PO SCH ×2 (08:26→21:58)
[2020-07-23] MEDS: CHOLECALCIFEROL (VITAMIN D3) 1,000 UNIT TABLET PO SCH (08:26)
[2020-07-23] MEDS: DIVALPROEX ER 500 MG TAB.ER.24H PO SCH ×2 (08:26→21:58)
[2020-07-23] MEDS: risperiDONE 2 MG TABLET. PO SCH ×2 (08:27→21:58)
[2020-07-23] MEDS: clonazePAM 1 MG TABLET PO SCH ×4 (08:27→21:00)
[2020-07-23] MEDS: LISINOPRIL 20 MG TABLET PO SCH (08:27)
[2020-07-23] MEDS: MINERAL OIL/PETROLATUM,WHITE OPHTH OINT 3.5GM TUBE. OU SCH (12:00)
[2020-07-23 15:57] VITALS: BP 96/59
[2020-07-23 17:47] VITALS: BP 102/68
[2020-07-23] MEDS: ATORVASTATIN CALCIUM 20 MG TABLET PO SCH (21:57)
--- NOTE | 2020-07-24 03:13 | PN ---
DATE: 07/23/2020 SUBJECTIVE: The patient was seen today. Met with the staff, chart reviewed, and also covering for Dr. Echeverria. Staff reports that the patient is sleeping on the couch, has been calm, somewhat drowsy during the evening, but continues to have behavior problems, constantly asking people to pray for him and also carrying Bible with no more religiously preoccupied. The patient also intrusive, demanding, and explosive with his temper, also has obsessive compulsive behaviors. OBJECTIVE: VITAL SIGNS: Temperature 98.0, blood pressure 118/73, pulse rate 56, respirations 16, O2 sat 96%. Slept about 7 hours last night. NEUROLOGIC: The patient's appetite is fair. The patient is able to walk, but unsteady and no falls. LABORATORY DATA: The patient's lab reviewed. The patient's medications reviewed. Currently, not having any major side effects. ASSESSMENT: 1. Bipolar disorder with psychotic features. 2. Obsessive-compulsive disorder. PLAN: To continue with the current treatment plan. Length of stay [address]: Tatiana TID: [id number]
[2020-07-24 06:13] VITALS: BP 129/82
[2020-07-24] MEDS: CHOLECALCIFEROL (VITAMIN D3) 1,000 UNIT TABLET PO SCH (08:19)
[2020-07-24] MEDS: DIVALPROEX ER 500 MG TAB.ER.24H PO SCH ×2 (08:20→21:05)
[2020-07-24] MEDS: NEOMYCIN/BACI/POLY/HC OPHTH OINTMENT 3.5GM TUBE. OU SCH ×2 (08:20→21:03)
[2020-07-24] MEDS: POTASSIUM CHLORIDE 10 MEQ TABLET.ER. PO SCH (08:20)
[2020-07-24] MEDS: FERROUS SULFATE 325 MG TABLET. PO SCH ×2 (08:20→21:04)
[2020-07-24] MEDS: KETOTIFEN FUMARATE 0.025% OPHT SOLUTION BOTTLE. OU SCH ×2 (08:20→21:03)
[2020-07-24] MEDS: hydroCHLOROthiazide 25 MG TABLET PO SCH (08:21)
[2020-07-24] MEDS: ASPIRIN ENTERIC COATED 81 MG TABLET.DR. PO SCH (08:21)
[2020-07-24] MEDS: OXYBUTYNIN CHLORIDE 5 MG TABLET PO SCH ×3 (08:21→21:04)
[2020-07-24] MEDS: amLODIPine BESYLATE 5 MG TABLET PO SCH (08:21)
[2020-07-24] MEDS: metFORMIN 500 MG TABLET PO SCH (08:21)
[2020-07-24] MEDS: MEMANTINE 10 MG TABLET. PO SCH ×2 (08:21→21:04)
[2020-07-24] MEDS: LISINOPRIL 20 MG TABLET PO SCH (08:22)
[2020-07-24] MEDS: QUEtiapine 50 MG TABLET. PO SCH ×3 (08:22→21:04)
[2020-07-24] MEDS: risperiDONE 2 MG TABLET. PO SCH ×2 (08:22→21:04)
[2020-07-24] MEDS: clonazePAM 1 MG TABLET PO SCH ×4 (08:23→21:04)
[2020-07-24] MEDS: MINERAL OIL/PETROLATUM,WHITE OPHTH OINT 3.5GM TUBE. OU SCH (13:38)
[2020-07-24] MEDS: ATORVASTATIN CALCIUM 20 MG TABLET PO SCH (21:04)
[2020-07-24 22:59] VITALS: BP 102/64
[2020-07-25 05:58] VITALS: BP 124/79
[2020-07-25] MEDS: FERROUS SULFATE 325 MG TABLET. PO SCH ×2 (07:38→21:05)
[2020-07-25] MEDS: risperiDONE 2 MG TABLET. PO SCH ×2 (07:38→21:04)
[2020-07-25] MEDS: hydroCHLOROthiazide 25 MG TABLET PO SCH (07:38)
[2020-07-25] MEDS: LISINOPRIL 20 MG TABLET PO SCH (07:39)
[2020-07-25] MEDS: amLODIPine BESYLATE 5 MG TABLET PO SCH (07:39)
[2020-07-25] MEDS: OXYBUTYNIN CHLORIDE 5 MG TABLET PO SCH ×3 (07:40→21:05)
[2020-07-25] MEDS: ASPIRIN ENTERIC COATED 81 MG TABLET.DR. PO SCH (07:40)
[2020-07-25] MEDS: CHOLECALCIFEROL (VITAMIN D3) 1,000 UNIT TABLET PO SCH (07:40)
[2020-07-25] MEDS: QUEtiapine 50 MG TABLET. PO SCH ×2 (07:40→12:28)
[2020-07-25] MEDS: DIVALPROEX ER 500 MG TAB.ER.24H PO SCH ×2 (07:40→21:04)
[2020-07-25] MEDS: metFORMIN 500 MG TABLET PO SCH (07:40)
[2020-07-25] MEDS: POTASSIUM CHLORIDE 10 MEQ TABLET.ER. PO SCH (07:41)
[2020-07-25] MEDS: MEMANTINE 10 MG TABLET. PO SCH ×2 (07:41→21:05)
[2020-07-25] MEDS: NEOMYCIN/BACI/POLY/HC OPHTH OINTMENT 3.5GM TUBE. OU SCH ×2 (07:42→21:04)
[2020-07-25] MEDS: clonazePAM 1 MG TABLET PO SCH ×4 (07:43→21:04)
[2020-07-25] MEDS: KETOTIFEN FUMARATE 0.025% OPHT SOLUTION BOTTLE. OU SCH ×2 (07:43→21:04)
[2020-07-25] MEDS: MINERAL OIL/PETROLATUM,WHITE OPHTH OINT 3.5GM TUBE. OU SCH (12:00)
[2020-07-25] MEDS ORDERED: QUEtiapine 50 MG TABLET. PO ONE (13:15)
[2020-07-25] MEDS: QUEtiapine 25 MG TABLET. PO SCH ×2 (14:00→21:05)
[2020-07-25 16:16] VITALS: BP 115/72
[2020-07-25] MEDS: ATORVASTATIN CALCIUM 20 MG TABLET PO SCH (21:05)
[2020-07-26 05:47] VITALS: BP 132/80
[2020-07-26] MEDS: OXYBUTYNIN CHLORIDE 5 MG TABLET PO SCH ×3 (08:03→21:12)
[2020-07-26] MEDS: MEMANTINE 10 MG TABLET. PO SCH ×2 (08:03→21:13)
[2020-07-26] MEDS: hydroCHLOROthiazide 25 MG TABLET PO SCH (08:03)
[2020-07-26] MEDS: NEOMYCIN/BACI/POLY/HC OPHTH OINTMENT 3.5GM TUBE. OU SCH ×2 (08:03→21:13)
[2020-07-26] MEDS: KETOTIFEN FUMARATE 0.025% OPHT SOLUTION BOTTLE. OU SCH ×2 (08:03→21:13)
[2020-07-26] MEDS: clonazePAM 1 MG TABLET PO SCH ×4 (08:04→21:00)
[2020-07-26] MEDS: CHOLECALCIFEROL (VITAMIN D3) 1,000 UNIT TABLET PO SCH (08:04)
[2020-07-26] MEDS: ASPIRIN ENTERIC COATED 81 MG TABLET.DR. PO SCH (08:04)
[2020-07-26] MEDS: metFORMIN 500 MG TABLET PO SCH (08:04)
[2020-07-26] MEDS: risperiDONE 2 MG TABLET. PO SCH ×2 (08:04→21:12)
[2020-07-26] MEDS: amLODIPine BESYLATE 5 MG TABLET PO SCH (08:05)
[2020-07-26] MEDS: POTASSIUM CHLORIDE 10 MEQ TABLET.ER. PO SCH (08:05)
[2020-07-26] MEDS: LISINOPRIL 20 MG TABLET PO SCH (08:05)
[2020-07-26] MEDS: QUEtiapine 25 MG TABLET. PO SCH ×3 (08:05→21:13)
[2020-07-26] MEDS: FERROUS SULFATE 325 MG TABLET. PO SCH ×2 (08:05→21:12)
[2020-07-26] MEDS: DIVALPROEX ER 500 MG TAB.ER.24H PO SCH ×2 (08:06→21:12)
--- NOTE | 2020-07-26 09:03 | PN ---
DATE: 07/24/2020 This is a late entry for the service date 07/24/2020. SUBJECTIVE: The patient was seen today by Telehealth, discussed with the staff and chart reviewed. The patient continues to have behavior problems, constantly following the staff, religiously preoccupied, and also has been aggressive with the staff at times. OBSERVATION: Vital signs stable. The patient did not have any falls. The patient's appetite is fair. ASSESSMENT: 1. Bipolar disorder with psychotic features. 2. Obsessive-compulsive disorder. PLAN: To continue with treatment. LENGTH OF STAY: Seven days. PELON DR: Tatiana TID: [id number]
[2020-07-26] MEDS: MINERAL OIL/PETROLATUM,WHITE OPHTH OINT 3.5GM TUBE. OU SCH (12:00)
--- NOTE | 2020-07-26 14:09 | TX PLAN ---
Interdisciplinary Tx Plan Admission Information July 10, 2020 at 11:18 Legal Status (on Admission): Voluntary DPOA/Guardian Name: Claudia Garcia Contact Other Contact Name: Camila Other Contact Verified Code Status: DNR Allergies: Coded Allergies: doxycycline (Verified Allergy, Mild, rash, 07/10/20) Diagnoses Primary Diagnosis: Psychosis unspecified Reasons for Admission: Aggressive, Agitated, Anxiety/Panic, Confusion/Disoriented, Poor impulse control Problem in Patient's Words: Pt does not wish to return to his placement at [facility] Additional Admission Comments: According the intake pt was admitted from [facility] ED for reportedly being manic, physically aggressive, anxious, and demanding to be allowed to leave [facility]. Problems Active Problems: manic anxious obsessive Inactive Problems: medication management Pt Strengths/Limitations Ability for [place]: Poor Cognitive Functioning/Ability: Fair Communication Skills/Ability: Poor Financial Resources: Fair Insight/Judgement: Poor Intellectual Ability: Poor Physical Health: Fair Social Skills: Poor Stability in Family: Excellent Stability in School/Work: Poor Verbal Skills: Fair Discharge Criteria Discharge Criteria: No need for close observ., Adequate arrangements @DC, Improved behavior, Improved mood/thought Preliminary Discharge Plan Preliminary DC Plan: Current Living Arrange., Other Special Precautions Fall Risk: Moderate Initial D/C Plan Pt may return to [facility] versus a different facility Identified Discharge Needs: Potential for higher level of care referrals Currently Utilized Resources Currently Utilized Resources/P: Primary Care Physician Identified Problems/Hx/Goals Objectives/Short-Term Goals Short Term Goals: Dec. Aggression, Dec. Outbursts, Improved Social Skills, Medication Stabilization, Monitor Med Effects Short Term Goals in Patient's: I don't want to go back to [facility] Interventions/Frequency Staff Interventions/Frequency&: Psychiatrist to assess pt at least 3x per week for medication mgmt. Social Work to assess pt at least 2x per week to identify barriers to care and finalize discharge planning. Nursing to assess medication effects, behavior modification, and completion of 15 minute checks daily. Encouarge participation in group activities (if applicable) adorno 1:1 engagement based off activity goals. History Vocational History: Pt worked at [employer] for less than a year because he could not follow directions and created trouble with his behavior. 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 Education: In the 3rd grade, teachers noticed that pt was not doing well and decided to have him tested. 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 Pt did graduate high school, although e was a year or two behind when he completed 12th grade. Community Follow-up Primary Care Physician Treatment Plan Explained Patient/Public Address Systems Mechanic had this treatment plan explained to him/her as indicated by the signature below and has been given the opportunity to ask questions and make suggestions: Date: Patient/Public Address Systems Mechanic Signature: Status Update Update Pt is eating roughly 100% of meals and sleeping on average 6.5 hours per night. Pt continues to be intrusive but has not displayed any physical aggression. Pt is compliant with medications and does not appear to have any signs of sedation. Pt has attended two groups but was difficult to redirect and tends to throw child-like tantrums when redirected. Pt at this time is to return to [facility] at the time of discharge. SW will plan to contact Elizabeth at [facility] and work with pt family on discharge plans; TRUMAN for 10 days. AZALEA ALFRED July 26, 2020 14:09
[2020-07-26 16:16] VITALS: BP 116/73
[2020-07-26] MEDS: ATORVASTATIN CALCIUM 20 MG TABLET PO SCH (21:13)
--- NOTE | 2020-07-27 02:28 | PN ---
DATE: 07/26/2020 SUBJECTIVE: The patient was seen today, met with the staff. Chart was reviewed. Also covering for Dr. Echeverria. The patient's behavior remains the same. He is constantly obsessing over his discharge, wanting to go home on his own and wanting to have someone care for him. OBSERVATION: VITAL SIGNS: Temperature 97.8, blood pressure 116/73, pulse 85, respirations 20, O2 sat 96%. GENERAL: The patient's sleep and appetite have improved. MEDICATIONS: The patient's medications reviewed, not having any side effects. LABORATORY DATA: The patient's lab reviewed. ASSESSMENT: 1. Bipolar disorder with psychotic features. 2. Obsessive-compulsive disorder. PLAN: To continue with the treatment. LENGTH OF STAY: 7 days. REBA/ALEXA/VIDA DR: Tatiana TID: [id number]
[2020-07-27] MEDS: clonazePAM 1 MG TABLET PO SCH ×4 (05:29→19:59)
[2020-07-27 06:16] VITALS: BP 148/84
[2020-07-27] MEDS: POTASSIUM CHLORIDE 10 MEQ TABLET.ER. PO SCH (08:38)
[2020-07-27] MEDS: metFORMIN 500 MG TABLET PO SCH (08:38)
[2020-07-27] MEDS: ASPIRIN ENTERIC COATED 81 MG TABLET.DR. PO SCH (08:38)
[2020-07-27] MEDS: hydroCHLOROthiazide 25 MG TABLET PO SCH (08:38)
[2020-07-27] MEDS: DIVALPROEX ER 500 MG TAB.ER.24H PO SCH ×2 (08:39→19:59)
[2020-07-27] MEDS: MEMANTINE 10 MG TABLET. PO SCH ×2 (08:39→20:10)
[2020-07-27] MEDS: OXYBUTYNIN CHLORIDE 5 MG TABLET PO SCH ×3 (08:39→20:00)
[2020-07-27] MEDS: FERROUS SULFATE 325 MG TABLET. PO SCH ×2 (08:39→20:00)
[2020-07-27] MEDS: LISINOPRIL 20 MG TABLET PO SCH (08:40)
[2020-07-27] MEDS: risperiDONE 2 MG TABLET. PO SCH ×2 (08:40→20:00)
[2020-07-27] MEDS: CHOLECALCIFEROL (VITAMIN D3) 1,000 UNIT TABLET PO SCH (08:40)
[2020-07-27] MEDS: amLODIPine BESYLATE 5 MG TABLET PO SCH (08:41)
[2020-07-27] MEDS: KETOTIFEN FUMARATE 0.025% OPHT SOLUTION BOTTLE. OU SCH ×2 (08:41→20:00)
[2020-07-27] MEDS: QUEtiapine 25 MG TABLET. PO SCH ×3 (08:41→19:59)
[2020-07-27] MEDS: NEOMYCIN/BACI/POLY/HC OPHTH OINTMENT 3.5GM TUBE. OU SCH ×2 (09:00→19:59)
[2020-07-27] MEDS: MINERAL OIL/PETROLATUM,WHITE OPHTH OINT 3.5GM TUBE. OU SCH (12:00)
[2020-07-27 15:46] VITALS: BP 110/62
[2020-07-27] MEDS: ATORVASTATIN CALCIUM 20 MG TABLET PO SCH (20:00)
--- NOTE | 2020-07-27 23:57 | PN ---
DATE: 07/27/2020 SUBJECTIVE: The patient was seen today, met with the staff, chart reviewed. Staff reports the patient apparently has not had any major problems. Still intrusive, demanding, repetitive, preoccupied, religiously carrying Bible. Staff reports he had fairly good day, able to rest. OBSERVATION: VITAL SIGNS: Temperature 97.0, blood pressure 148/84, pulse 74, respirations 18, O2 sat 99%. Slept about 2 hours last night. CURRENT MEDICATIONS: The patient's medications reviewed. Currently on Seroquel 25 mg t.i.d. and seems to be responding fairly well, Depakote 500 mg daily and 1000 mg at night, Risperdal 3 mg twice a day, clonazepam 1 mg q.i.d., fluvoxamine 75 mg daily, Namenda 10 mg b.i.d. The patient is not having any side effects. LABORATORY DATA: The patient's lab reviewed. ASSESSMENT: 1. Bipolar disorder with psychotic features. 2. Obsessive-compulsive disorder. PLAN: The patient's Risperdal will be gradually decreased and discontinued. We will also consider decreasing his Klonopin. LENGTH OF STAY: [address]: Tatiana TID: [id number]
[2020-07-28 06:19] VITALS: BP 107/70
[2020-07-28] MEDS: OXYBUTYNIN CHLORIDE 5 MG TABLET PO SCH ×3 (08:52→19:57)
[2020-07-28] MEDS: FERROUS SULFATE 325 MG TABLET. PO SCH ×2 (08:52→19:57)
[2020-07-28] MEDS: DIVALPROEX ER 500 MG TAB.ER.24H PO SCH ×2 (08:53→19:57)
[2020-07-28] MEDS: POTASSIUM CHLORIDE 10 MEQ TABLET.ER. PO SCH (08:53)
[2020-07-28] MEDS: metFORMIN 500 MG TABLET PO SCH (08:53)
[2020-07-28] MEDS: amLODIPine BESYLATE 5 MG TABLET PO SCH (08:53)
[2020-07-28] MEDS: risperiDONE 2 MG TABLET. PO SCH ×2 (08:53→19:57)
[2020-07-28] MEDS: CHOLECALCIFEROL (VITAMIN D3) 1,000 UNIT TABLET PO SCH (08:54)
[2020-07-28] MEDS: QUEtiapine 25 MG TABLET. PO SCH ×3 (08:54→19:58)
[2020-07-28] MEDS: ASPIRIN ENTERIC COATED 81 MG TABLET.DR. PO SCH (08:54)
[2020-07-28] MEDS: hydroCHLOROthiazide 25 MG TABLET PO SCH (08:55)
[2020-07-28] MEDS: NEOMYCIN/BACI/POLY/HC OPHTH OINTMENT 3.5GM TUBE. OU SCH ×2 (08:55→19:56)
[2020-07-28] MEDS: LISINOPRIL 20 MG TABLET PO SCH (08:55)
[2020-07-28] MEDS: MEMANTINE 10 MG TABLET. PO SCH ×2 (08:55→19:57)
[2020-07-28] MEDS: KETOTIFEN FUMARATE 0.025% OPHT SOLUTION BOTTLE. OU SCH ×2 (08:56→19:56)
[2020-07-28] MEDS: clonazePAM 1 MG TABLET PO SCH ×4 (09:00→19:57)
[2020-07-28] MEDS: MINERAL OIL/PETROLATUM,WHITE OPHTH OINT 3.5GM TUBE. OU SCH (12:00)
[2020-07-28] MEDS: ATORVASTATIN CALCIUM 20 MG TABLET PO SCH (19:57)
--- NOTE | 2020-07-28 22:44 | PN ---
DATE: 07/28/2020 SUBJECTIVE: The patient was seen today, met with the staff, chart reviewed, and also covering for Dr. Echeverria. The patient's behavior remains the same. Still intrusive, demanding, constantly focused on his Bible, religiously preoccupied, and making repetitive statements. The patient also emotionally labile at times and also periods of angry outbursts. OBSERVATION: VITAL SIGNS: Temperature 97.2, blood pressure 107/70, pulse 62, respirations 14, O2 sat 93%. Slept about 6 hours last night. The patient's appetite is fair. CURRENT MEDICATIONS: The patient's medications reviewed. No new side effects. LABORATORY DATA: The patient's lab reviewed. ASSESSMENT: 1. Bipolar disorder with psychotic features. 2. Obsessive-compulsive disorder. PLAN: Continue with the current medication. We will consider reducing his risperidone, also consider decreasing his Klonopin. LENGTH OF STAY: Seven days. VALENCIA DR: Tatiana TID: [id number]
[2020-07-28 23:20] VITALS: BP 96/61
[2020-07-29 06:05] VITALS: BP 121/82
[2020-07-29] MEDS: ASPIRIN ENTERIC COATED 81 MG TABLET.DR. PO SCH (08:32)
[2020-07-29] MEDS: metFORMIN 500 MG TABLET PO SCH (08:32)
[2020-07-29] MEDS: FERROUS SULFATE 325 MG TABLET. PO SCH ×2 (08:33→20:26)
[2020-07-29] MEDS: MEMANTINE 10 MG TABLET. PO SCH ×2 (08:33→20:26)
[2020-07-29] MEDS: hydroCHLOROthiazide 25 MG TABLET PO SCH (08:33)
[2020-07-29] MEDS: OXYBUTYNIN CHLORIDE 5 MG TABLET PO SCH ×3 (08:33→20:26)
[2020-07-29] MEDS: QUEtiapine 25 MG TABLET. PO SCH ×3 (08:33→20:26)
[2020-07-29] MEDS: POTASSIUM CHLORIDE 10 MEQ TABLET.ER. PO SCH (08:33)
[2020-07-29] MEDS: CHOLECALCIFEROL (VITAMIN D3) 1,000 UNIT TABLET PO SCH (08:33)
[2020-07-29] MEDS: clonazePAM 1 MG TABLET PO SCH ×4 (08:33→20:26)
[2020-07-29] MEDS: amLODIPine BESYLATE 5 MG TABLET PO SCH (08:34)
[2020-07-29] MEDS: DIVALPROEX ER 500 MG TAB.ER.24H PO SCH ×2 (08:34→20:27)
[2020-07-29] MEDS: risperiDONE 2 MG TABLET. PO SCH ×2 (08:34→20:27)
[2020-07-29] MEDS: KETOTIFEN FUMARATE 0.025% OPHT SOLUTION BOTTLE. OU SCH ×2 (08:34→20:28)
[2020-07-29] MEDS: NEOMYCIN/BACI/POLY/HC OPHTH OINTMENT 3.5GM TUBE. OU SCH ×2 (08:34→20:27)
[2020-07-29] MEDS: LISINOPRIL 20 MG TABLET PO SCH (08:35)
[2020-07-29] MEDS: MINERAL OIL/PETROLATUM,WHITE OPHTH OINT 3.5GM TUBE. OU SCH (12:00)
[2020-07-29 15:31] VITALS: BP 110/65
[2020-07-29] MEDS: ATORVASTATIN CALCIUM 20 MG TABLET PO SCH (20:26)
--- NOTE | 2020-07-30 01:12 | PN ---
DATE: 07/29/2020 SUBJECTIVE: The patient was seen today, met with the staff, chart reviewed. The patient denies of any major problems, but his behavior has been appropriate. He is constantly wandering, intrusive, demanding, religiously preoccupied, keep repeating the same questions. He is also difficult to redirect at times. Overall, his behavior has improved. OBSERVATION: VITAL SIGNS: Temperature 97.3, blood pressure 121/82, pulse 72, respirations 18, O2 sat 98%. GENERAL: Slept about 6 hours last night. MEDICATIONS: The patient's medications reviewed, not having any side effects. LABORATORY DATA: Reviewed. ASSESSMENT: 1. Bipolar disorder with psychotic features. 2. Obsessive-compulsive disorder. PLAN: Continue with current medications. LENGTH OF STAY: Seven days. CATERINA DR: Tatiana TID: [id number]
[2020-07-30 05:42] VITALS: BP 156/87
[2020-07-30 07:18] LABS: BASO % 0 % (0-3); EOS # 0.2 x10^3/uL (0.0-0.7); EOS % 3 % (0-3); HEMATOCRIT 39.2 % (39.0-53.0); HEMOGLOBIN 13.4 g/dL (13.0-17.5); LYMPH # 1.2 x10^3/uL (1.0-4.8); LYMPH % 16 % (24-48); MEAN CORPUSCULAR HEMOGLOBIN 30 pg (25-35); MEAN CORPUSCULAR HGB CONC 34 g/dL (31-37); MEAN CORPUSCULAR VOLUME 88 fL (79-100); MONO # 0.9 x10^3/uL (0.0-1.1); MONO % 12 % (0-9); NEUT # 5.1 x10^3uL (1.8-7.7); NEUT % 69 % (31-73); PLATELET COUNT 171 x10^3/uL (140-400); RED BLOOD COUNT 4.46 x10^6/uL (4.30-5.70); RED CELL DISTRIBUTION WIDTH 15.5 % (11.5-14.5); WHITE BLOOD COUNT 7.5 x10^3/uL (4.0-11.0)
[2020-07-30] MEDS: POTASSIUM CHLORIDE 10 MEQ TABLET.ER. PO SCH (08:03)
[2020-07-30] MEDS: KETOTIFEN FUMARATE 0.025% OPHT SOLUTION BOTTLE. OU SCH ×2 (08:03→20:17)
[2020-07-30] MEDS: NEOMYCIN/BACI/POLY/HC OPHTH OINTMENT 3.5GM TUBE. OU SCH ×2 (08:03→20:17)
[2020-07-30] MEDS: metFORMIN 500 MG TABLET PO SCH (08:03)
[2020-07-30] MEDS: ASPIRIN ENTERIC COATED 81 MG TABLET.DR. PO SCH (08:03)
[2020-07-30] MEDS: CHOLECALCIFEROL (VITAMIN D3) 1,000 UNIT TABLET PO SCH (08:04)
[2020-07-30] MEDS: FERROUS SULFATE 325 MG TABLET. PO SCH ×2 (08:04→20:18)
[2020-07-30] MEDS: hydroCHLOROthiazide 25 MG TABLET PO SCH (08:04)
[2020-07-30] MEDS: DIVALPROEX ER 500 MG TAB.ER.24H PO SCH ×2 (08:04→20:19)
[2020-07-30] MEDS: risperiDONE 2 MG TABLET. PO SCH ×2 (08:05→20:18)
[2020-07-30] MEDS: MEMANTINE 10 MG TABLET. PO SCH ×2 (08:05→20:18)
[2020-07-30] MEDS: clonazePAM 1 MG TABLET PO SCH ×4 (08:05→20:18)
[2020-07-30] MEDS: OXYBUTYNIN CHLORIDE 5 MG TABLET PO SCH ×3 (08:05→20:18)
[2020-07-30] MEDS: QUEtiapine 25 MG TABLET. PO SCH ×3 (08:05→20:18)
[2020-07-30] MEDS: amLODIPine BESYLATE 5 MG TABLET PO SCH (08:06)
[2020-07-30] MEDS: LISINOPRIL 20 MG TABLET PO SCH (08:06)
[2020-07-30] MEDS: MINERAL OIL/PETROLATUM,WHITE OPHTH OINT 3.5GM TUBE. OU SCH (13:15)
[2020-07-30 13:32] LABS: ALBUMIN 3.4 g/dL (3.4-5.0); CALCIUM 8.3 mg/dL (8.5-10.1); CREATININE 0.7 mg/dL (0.7-1.3); GFR 113.2; POTASSIUM 4.3 mmol/L (3.5-5.1); TOTAL BILIRUBIN 0.4 mg/dL (0.2-1.0); TOTAL PROTEIN 6.8 g/dL (6.4-8.2)
[2020-07-30 15:45] VITALS: BP 93/58
[2020-07-30] MEDS: ATORVASTATIN CALCIUM 20 MG TABLET PO SCH (20:18)
--- NOTE | 2020-07-30 22:05 | PDOC ---
Exam Note: Anthony Note: Please also refer to the separate dictated note~for this date of service dictated separately.~Patient seen individually. Discussed the patient with Nursing staff reviewed the chart.~Reviewed interim history and current functioning. Reviewed vital signs,~Labs/ Radiology~and current medications noted below. Continue current treatment with the changes noted in the dictated addendum note Assessment: Vital Signs/I&O: Vital Signs Date Time Temp Pulse Resp B/P (MAP) Pulse Ox O2 Delivery O2 Flow Rate FiO2 07/30/20 15:45 97.3 69 18 93/58 (70) 94 07/29/20 06:05 Room Air I & O 07/29/20 07/29/20 07/30/20 14:59 22:59 06:59 Intake Total 1130 ml 480 ml Balance 1130 ml 480 ml Labs: Laboratory Tests Test 07/30/20 06:43 07/30/20 07:34 White Blood Count 7.5 x10^3/uL (4.0-11.0) Red Blood Count 4.46 x10^6/uL (4.30-5.70) Hemoglobin 13.4 g/dL (13.0-17.5) Hematocrit 39.2 % (39.0-53.0) Mean Corpuscular Volume 88 fL (79-100) Mean Corpuscular Hemoglobin 30 pg (25-35) Mean Corpuscular Hemoglobin Concent 34 g/dL (31-37) Red Cell Distribution Width 15.5 % (11.5-14.5) H Platelet Count 171 x10^3/uL (140-400) Neutrophils (%) (Auto) 69 % (31-73) Lymphocytes (%) (Auto) 16 % (24-48) L Monocytes (%) (Auto) 12 % (0-9) H Eosinophils (%) (Auto) 3 % (0-3) Basophils (%) (Auto) 0 % (0-3) Neutrophils # (Auto) 5.1 x10^3uL (1.8-7.7) Lymphocytes # (Auto) 1.2 x10^3/uL (1.0-4.8) Monocytes # (Auto) 0.9 x10^3/uL (0.0-1.1) Eosinophils # (Auto) 0.2 x10^3/uL (0.0-0.7) Basophils # (Auto) 0.0 x10^3/uL (0.0-0.2) Sodium Level 137 mmol/L (136-145) Potassium Level 4.3 mmol/L (3.5-5.1) Chloride Level 99 mmol/L (98-107) Carbon Dioxide Level 31 mmol/L (21-32) Anion Gap 7 (6-14) Blood Urea Nitrogen 17 mg/dL (8-26) Creatinine 0.7 mg/dL (0.7-1.3) Estimated GFR (Cockcroft-Gault) 113.2 BUN/Creatinine Ratio 24 (6-20) H Glucose Level 87 mg/dL (70-99) Calcium Level 8.3 mg/dL (8.5-10.1) L Total Bilirubin 0.4 mg/dL (0.2-1.0) Aspartate Amino Transferase (AST) 15 U/L (15-37) Alanine Aminotransferase (ALT) 22 U/L (16-63) Alkaline Phosphatase 61 U/L (46-116) Total Protein 6.8 g/dL (6.4-8.2) Albumin 3.4 g/dL (3.4-5.0) Albumin/Globulin Ratio 1.0 (1.0-1.7) Glucose (Fingerstick) 96 mg/dL (70-99) Current Medications: Meds: Laboratory Tests Test 07/30/20 06:43 07/30/20 07:34 White Blood Count 7.5 x10^3/uL Red Blood Count 4.46 x10^6/uL Hemoglobin 13.4 g/dL Hematocrit 39.2 % Mean Corpuscular Volume 88 fL Mean Corpuscular Hemoglobin 30 pg Mean Corpuscular Hemoglobin Concent 34 g/dL Red Cell Distribution Width 15.5 % Platelet Count 171 x10^3/uL Neutrophils (%) (Auto) 69 % Lymphocytes (%) (Auto) 16 % Monocytes (%) (Auto) 12 % Eosinophils (%) (Auto) 3 % Basophils (%) (Auto) 0 % Neutrophils # (Auto) 5.1 x10^3uL Lymphocytes # (Auto) 1.2 x10^3/uL Monocytes # (Auto) 0.9 x10^3/uL Eosinophils # (Auto) 0.2 x10^3/uL Basophils # (Auto) 0.0 x10^3/uL Sodium Level 137 mmol/L Potassium Level 4.3 mmol/L Chloride Level 99 mmol/L Carbon Dioxide Level 31 mmol/L Anion Gap 7 Blood Urea Nitrogen 17 mg/dL Creatinine 0.7 mg/dL Estimated GFR (Cockcroft-Gault) 113.2 BUN/Creatinine Ratio 24 Glucose Level 87 mg/dL Calcium Level 8.3 mg/dL Total Bilirubin 0.4 mg/dL Aspartate Amino Transf (AST/SGOT) 15 U/L Alanine Aminotransferase (ALT/SGPT) 22 U/L Alkaline Phosphatase 61 U/L Total Protein 6.8 g/dL Albumin 3.4 g/dL Albumin/Globulin Ratio 1.0 Glucose (Fingerstick) 96 mg/dL Current Medications Medications (Trade) Dose Ordered Sig/Davida Route PRN Reason Start Time Stop Time Status Last Admin Dose Admin Acetaminophen (Tylenol) 650 mg PRN Q6HRS PRN PO MILD PAIN / TEMP > 100.3'F 07/10/20 12:30 Multi-Ingredient Ointment (Analgesic Goodrich) 1 marvel PRN QID PRN TP MUSCLE PAIN 07/10/20 12:30 Al Hydroxide/Mg Hydroxide (Mylanta Plus Xs) 15 ml PRN AFTMEALHC PRN PO DYSPEPSIA 07/10/20 12:30 Cancel Magnesium Hydroxide (Milk Of Magnesia) 2,400 mg PRN QHS PRN PO 2ND CHOICE CONSTIPATION 07/10/20 12:30 Albuterol Sulfate (Ventolin) 2.5 mg PRN Q4HRS PRN IH FOR ASTHMA 07/10/20 15:30 Amlodipine Besylate (Norvasc) 5 mg DAILY PO 07/11/20 09:00 07/30/20 08:06 Aspirin (Aspirin Enteric Coated) 81 mg DAILY08 PO 07/11/20 08:00 07/30/20 08:03 Atorvastatin Calcium (Lipitor) 20 mg QHS PO 07/10/20 21:00 07/30/20 20:18 Clonazepam (KlonoPIN) 2 mg TID PO 07/10/20 21:00 07/20/20 16:15 DC 07/20/20 13:10 Divalproex Sodium (Depakote Er) 250 mg TID PO 07/10/20 21:00 07/18/20 18:41 DC 07/18/20 13:44 Ferrous Sulfate (Feosol) 325 mg BID PO 07/10/20 21:00 07/30/20 20:18 Guaifenesin (Mucinex Er) 600 mg PRN Q12HR PRN PO nasal congestion 07/10/20 15:30 Hydrochlorothiazide (Hydrodiuril) 25 mg DAILYWBKFT PO 07/11/20 08:00 07/30/20 08:04 Ketotifen Fumarate (Zaditor) 1 drop BID OU 07/10/20 21:00 07/30/20 20:17 Loperamide HCl (Imodium) 4 mg PRN DAILY PRN PO FIRST OCCURANCE OF DIARRHEA 07/10/20 15:30 Memantine (Namenda) 10 mg BID PO 07/10/20 21:00 07/30/20 20:18 Metformin HCl (Glucophage) 500 mg DAILYWBKFT PO 07/11/20 08:00 07/30/20 08:03 Paroxetine HCl (Paxil) 40 mg DAILY PO 07/11/20 09:00 07/12/20 11:47 DC 07/12/20 08:10 Polyethylene Glycol (miraLAX) 17 gm PRN DAILY PRN PO 1ST CHOICE CONSTIPATION 07/10/20 15:30 Artificial Tears (Artificial Tears) 1 drop PRN Q1HR PRN OU itchy eyes 07/10/20 15:30 Potassium Chloride (Klor-Con) 10 meq DAILY08 PO 07/11/20 08:00 07/30/20 08:03 Risperidone (RisperDAL) 1 mg BID PO 07/10/20 21:00 07/19/20 11:49 DC 07/19/20 08:52 Senna/Docusate Sodium (Senna Plus) 2 tab PRN BID PRN PO 3RD CHOICE CONSTIPATION 07/10/20 15:30 Calcium Carbonate/ Glycine (Tums) 1,000 mg PRN Q4HRS PRN PO HEARTBURN / GAS, 1ST CHOICE 07/10/20 16:15 Vitamin D (Vitamin D3) 2,000 unit DAILY PO 07/11/20 09:00 07/30/20 08:04 Throat Lozenges (Cepacol Sore Throat Lozenge) 1 danna PRN Q2HR PRN PO SORE THROAT 07/10/20 16:15 Guaifenesin (Robitussin Dm) 10 ml PRN Q4HRS PRN PO COUGH 07/10/20 16:15 Lisinopril (Prinivil) 40 mg DAILY PO 07/11/20 09:00 07/30/20 08:06 Loperamide HCl (Imodium) 2 mg PRN Q1HR PRN PO DIARRHEA 07/10/20 16:30 Al Hydroxide/Mg Hydroxide (Mylanta Plus Xs) 20 ml PRN Q4HRS PRN PO INDIGESTION, 2ND CHOICE 07/10/20 16:30 Multi-Ingred Cream/Lotion/Oil/ Oint (Artificial Tears Eye Ointment) 1 marvel NOON OU 07/11/20 12:00 07/30/20 13:15 Oxybutynin Chloride (Ditropan) 5 mg [id number] PO 07/10/20 21:00 07/30/20 20:18 Olanzapine (ZyPREXA ZYDIS) 2.5 mg PRN Q2HRS PRN PO PSYCHOSIS 07/10/20 20:00 07/22/20 15:52 DC 07/22/20 14:21 Fluvoxamine Maleate (Luvox) 25 mg DAILY PO 07/13/20 09:00 07/14/20 09:05 DC 07/14/20 08:25 Fluvoxamine Maleate (Luvox) 50 mg DAILY PO 07/15/20 09:00 07/16/20 09:05 DC 07/16/20 08:14 Fluvoxamine Maleate (Luvox) 75 mg DAILY PO 07/17/20 09:00 07/30/20 08:05 Divalproex Sodium (Depakote Er) 250 mg 0900 PO 07/19/20 09:00 07/20/20 16:12 DC 07/20/20 08:05 Divalproex Sodium (Depakote Er) 750 mg QHS PO 07/18/20 21:00 07/20/20 16:12 DC 07/19/20 20:59 Risperidone (RisperDAL) 2 mg BID PO 07/19/20 21:00 07/20/20 16:13 DC 07/20/20 08:06 Divalproex Sodium (Depakote Er) 500 mg 0900 PO 07/21/20 09:00 07/30/20 08:04 Divalproex Sodium (Depakote Er) 1,000 mg QHS PO 07/20/20 21:00 07/30/20 20:19 Risperidone (RisperDAL) 3 mg BID PO 07/20/20 21:00 07/30/20 20:18 Clonazepam (KlonoPIN) 1 mg QID PO 07/20/20 17:00 07/30/20 20:18 Neomycin/ Polymyxin/Bacitr/ Hydrocort (Cortisporin Ophth) 2 marvel BID OU 07/21/20 17:00 07/30/20 20:17 Quetiapine Fumarate (SEROquel) 50 mg TID PO 07/22/20 17:00 07/25/20 13:04 DC 07/25/20 12:28 Quetiapine Fumarate (SEROquel) 75 mg TID PO 07/25/20 14:00 07/30/20 20:18 Quetiapine Fumarate (SEROquel) 50 mg 1X ONCE PO 07/25/20 13:15 07/25/20 13:21 DC 07/25/20 13:24 I have reviewed the current psychotropics carefully including drug interactions. Risk benefit ratio favors no change other than as noted in my dictated progress note. Diagnosis: Problems: (1) OCD (obsessive compulsive disorder) (2) Impulse control disorder, unspecified (3) Anxiety disorder, unspecified (4) Intellectual disability BRE WYLIE MD July 30, 2020 22:05
[2020-07-31 05:47] VITALS: BP 127/86
[2020-07-31] MEDS: NEOMYCIN/BACI/POLY/HC OPHTH OINTMENT 3.5GM TUBE. OU SCH ×2 (07:55→20:10)
[2020-07-31] MEDS: ASPIRIN ENTERIC COATED 81 MG TABLET.DR. PO SCH (07:55)
[2020-07-31] MEDS: hydroCHLOROthiazide 25 MG TABLET PO SCH (07:55)
[2020-07-31] MEDS: DIVALPROEX ER 500 MG TAB.ER.24H PO SCH ×2 (07:55→20:10)
[2020-07-31] MEDS: KETOTIFEN FUMARATE 0.025% OPHT SOLUTION BOTTLE. OU SCH ×2 (07:55→20:10)
[2020-07-31] MEDS: CHOLECALCIFEROL (VITAMIN D3) 1,000 UNIT TABLET PO SCH (07:56)
[2020-07-31] MEDS: MEMANTINE 10 MG TABLET. PO SCH ×2 (07:56→20:10)
[2020-07-31] MEDS: POTASSIUM CHLORIDE 10 MEQ TABLET.ER. PO SCH (07:56)
[2020-07-31] MEDS: metFORMIN 500 MG TABLET PO SCH (07:56)
[2020-07-31] MEDS: FERROUS SULFATE 325 MG TABLET. PO SCH ×2 (07:56→20:11)
[2020-07-31] MEDS: risperiDONE 2 MG TABLET. PO SCH ×2 (07:57→20:11)
[2020-07-31] MEDS: QUEtiapine 25 MG TABLET. PO SCH ×3 (07:57→20:10)
[2020-07-31] MEDS: clonazePAM 1 MG TABLET PO SCH ×4 (07:57→20:10)
[2020-07-31] MEDS: amLODIPine BESYLATE 5 MG TABLET PO SCH (07:57)
[2020-07-31] MEDS: OXYBUTYNIN CHLORIDE 5 MG TABLET PO SCH ×3 (07:57→20:11)
[2020-07-31] MEDS: LISINOPRIL 20 MG TABLET PO SCH (07:58)
[2020-07-31] MEDS: MINERAL OIL/PETROLATUM,WHITE OPHTH OINT 3.5GM TUBE. OU SCH (12:00)
[2020-07-31 15:46] VITALS: BP 103/69
[2020-07-31] MEDS: ATORVASTATIN CALCIUM 20 MG TABLET PO SCH (20:10)
--- NOTE | 2020-07-31 21:48 | PDOC ---
Exam Note: Anthony Note: Please also refer to the separate dictated note~for this date of service dictated separately.~Patient seen individually. Discussed the patient with Nursing staff reviewed the chart.~Reviewed interim history and current functioning. Reviewed vital signs,~Labs/ Radiology~and current medications noted below. Continue current treatment with the changes noted in the dictated addendum note Assessment: Vital Signs/I&O: Vital Signs Date Time Temp Pulse Resp B/P (MAP) Pulse Ox O2 Delivery O2 Flow Rate FiO2 07/31/20 15:46 97.5 71 18 103/69 (80) 95 07/29/20 06:05 Room Air I & O 07/30/20 07/30/20 07/31/20 15:00 23:00 07:00 Intake Total 840 ml 600 ml Balance 840 ml 600 ml Labs: Laboratory Tests Test 07/31/20 07:21 Glucose (Fingerstick) 83 mg/dL (70-99) Current Medications: Meds: Laboratory Tests Test 07/31/20 07:21 Glucose (Fingerstick) 83 mg/dL Current Medications Medications (Trade) Dose Ordered Sig/Davida Route PRN Reason Start Time Stop Time Status Last Admin Dose Admin Acetaminophen (Tylenol) 650 mg PRN Q6HRS PRN PO MILD PAIN / TEMP > 100.3'F 07/10/20 12:30 Multi-Ingredient Ointment (Analgesic [place]row) 1 marvel PRN QID PRN TP MUSCLE PAIN 07/10/20 12:30 Al Hydroxide/Mg Hydroxide (Mylanta Plus Xs) 15 ml PRN AFTMEALHC PRN PO DYSPEPSIA 07/10/20 12:30 Cancel Magnesium Hydroxide (Milk Of Magnesia) 2,400 mg PRN QHS PRN PO 2ND CHOICE CONSTIPATION 07/10/20 12:30 Albuterol Sulfate (Ventolin) 2.5 mg PRN Q4HRS PRN IH FOR ASTHMA 07/10/20 15:30 Amlodipine Besylate (Norvasc) 5 mg DAILY PO 07/11/20 09:00 07/31/20 07:57 Aspirin (Aspirin Enteric Coated) 81 mg DAILY08 PO 07/11/20 08:00 07/31/20 07:55 Atorvastatin Calcium (Lipitor) 20 mg QHS PO 07/10/20 21:00 07/31/20 20:10 Clonazepam (KlonoPIN) 2 mg TID PO 07/10/20 21:00 07/20/20 16:15 DC 07/20/20 13:10 Divalproex Sodium (Depakote Er) 250 mg TID PO 07/10/20 21:00 07/18/20 18:41 DC 07/18/20 13:44 Ferrous Sulfate (Feosol) 325 mg BID PO 07/10/20 21:00 07/31/20 20:11 Guaifenesin (Mucinex Er) 600 mg PRN Q12HR PRN PO nasal congestion 07/10/20 15:30 Hydrochlorothiazide (Hydrodiuril) 25 mg DAILYWBKFT PO 07/11/20 08:00 07/31/20 07:55 Ketotifen Fumarate (Zaditor) 1 drop BID OU 07/10/20 21:00 07/31/20 20:10 Loperamide HCl (Imodium) 4 mg PRN DAILY PRN PO FIRST OCCURANCE OF DIARRHEA 07/10/20 15:30 Memantine (Namenda) 10 mg BID PO 07/10/20 21:00 07/31/20 20:10 Metformin HCl (Glucophage) 500 mg DAILYWBKFT PO 07/11/20 08:00 07/31/20 07:56 Paroxetine HCl (Paxil) 40 mg DAILY PO 07/11/20 09:00 07/12/20 11:47 DC 07/12/20 08:10 Polyethylene Glycol (miraLAX) 17 gm PRN DAILY PRN PO 1ST CHOICE CONSTIPATION 07/10/20 15:30 Artificial Tears (Artificial Tears) 1 drop PRN Q1HR PRN OU itchy eyes 07/10/20 15:30 Potassium Chloride (Klor-Con) 10 meq DAILY08 PO 07/11/20 08:00 07/31/20 07:56 Risperidone (RisperDAL) 1 mg BID PO 07/10/20 21:00 07/19/20 11:49 DC 07/19/20 08:52 Senna/Docusate Sodium (Senna Plus) 2 tab PRN BID PRN PO 3RD CHOICE CONSTIPATION 07/10/20 15:30 Calcium Carbonate/ Glycine (Tums) 1,000 mg PRN Q4HRS PRN PO HEARTBURN / GAS, 1ST CHOICE 07/10/20 16:15 Vitamin D (Vitamin D3) 2,000 unit DAILY PO 07/11/20 09:00 07/31/20 07:56 Throat Lozenges (Cepacol Sore Throat Lozenge) 1 danna PRN Q2HR PRN PO SORE THROAT 07/10/20 16:15 Guaifenesin (Robitussin Dm) 10 ml PRN Q4HRS PRN PO COUGH 07/10/20 16:15 Lisinopril (Prinivil) 40 mg DAILY PO 07/11/20 09:00 07/31/20 07:58 Loperamide HCl (Imodium) 2 mg PRN Q1HR PRN PO DIARRHEA 07/10/20 16:30 Al Hydroxide/Mg Hydroxide (Mylanta Plus Xs) 20 ml PRN Q4HRS PRN PO INDIGESTION, 2ND CHOICE 07/10/20 16:30 Multi-Ingred Cream/Lotion/Oil/ Oint (Artificial Tears Eye Ointment) 1 marvel NOON OU 07/11/20 12:00 07/31/20 12:00 Oxybutynin Chloride (Ditropan) 5 mg [id number] PO 07/10/20 21:00 07/31/20 20:11 Olanzapine (ZyPREXA ZYDIS) 2.5 mg PRN Q2HRS PRN PO PSYCHOSIS 07/10/20 20:00 07/22/20 15:52 DC 07/22/20 14:21 Fluvoxamine Maleate (Luvox) 25 mg DAILY PO 07/13/20 09:00 07/14/20 09:05 DC 07/14/20 08:25 Fluvoxamine Maleate (Luvox) 50 mg DAILY PO 07/15/20 09:00 07/16/20 09:05 DC 07/16/20 08:14 Fluvoxamine Maleate (Luvox) 75 mg DAILY PO 07/17/20 09:00 07/31/20 07:56 Divalproex Sodium (Depakote Er) 250 mg 0900 PO 07/19/20 09:00 07/20/20 16:12 DC 07/20/20 08:05 Divalproex Sodium (Depakote Er) 750 mg QHS PO 07/18/20 21:00 07/20/20 16:12 DC 07/19/20 20:59 Risperidone (RisperDAL) 2 mg BID PO 07/19/20 21:00 07/20/20 16:13 DC 07/20/20 08:06 Divalproex Sodium (Depakote Er) 500 mg 0900 PO 07/21/20 09:00 07/31/20 07:55 Divalproex Sodium (Depakote Er) 1,000 mg QHS PO 07/20/20 21:00 07/31/20 20:10 Risperidone (RisperDAL) 3 mg BID PO 07/20/20 21:00 07/31/20 20:11 Clonazepam (KlonoPIN) 1 mg QID PO 07/20/20 17:00 07/31/20 20:10 Neomycin/ Polymyxin/Bacitr/ Hydrocort (Cortisporin Ophth) 2 marvel BID OU 07/21/20 17:00 07/31/20 20:10 Quetiapine Fumarate (SEROquel) 50 mg TID PO 07/22/20 17:00 07/25/20 13:04 DC 07/25/20 12:28 Quetiapine Fumarate (SEROquel) 75 mg TID PO 07/25/20 14:00 07/31/20 20:10 Quetiapine Fumarate (SEROquel) 50 mg 1X ONCE PO 07/25/20 13:15 07/25/20 13:21 DC 07/25/20 13:24 I have reviewed the current psychotropics carefully including drug interactions. Risk benefit ratio favors no change other than as noted in my dictated progress note. Diagnosis: Problems: (1) OCD (obsessive compulsive disorder) (2) Impulse control disorder, unspecified (3) Anxiety disorder, unspecified (4) Intellectual disability BRE WYLIE MD July 31, 2020 21:48
[2020-08-01 05:36] VITALS: BP 107/59
--- NOTE | 2020-08-01 07:56 | PDOC ---
Exam Note: Anthony Note: This note is a late entry for 07/13/2020 covers elements not covered in my initial note. Subjective: This note was initially completed on 07/13/2020 but cannot be retrieved in the electronic medical system and is being re-dictated today 07/31/2020. The patient was seen individually in the evening of 07/13/2020 with Yaya IRWIN, discussed and reviewed the chart. He has been yelling at times, repetitive, does redirect. He slept reasonably well. Review of Systems: He has vague somatic symptoms. No CV, , eye, ENT system symptoms on review. Mental Status Exam: The patient is oriented to himself and situation. Speech rapid, coherent. Abstraction fair. Computation impaired. Language function intact. Attention span short. Mood and affect remains labile. Laboratory Data: Reviewed. Impression: Obsessive-compulsive disorder. Intellectual disability. Anxiety disorder unspecified. Impulse control disorder unspecified. Plan: No change from initial note. Dr. Leiva will cover for me starting from 07/14/2020 at 8 a.m. till 07/29/2020 at 8 p.m. Assessment: Vital Signs/I&O: Vital Signs Date Time Temp Pulse Resp B/P (MAP) Pulse Ox O2 Delivery O2 Flow Rate FiO2 08/01/20 05:36 97.3 99 20 107/59 (75) 98 Room Air I & O 07/31/20 07/31/20 08/01/20 15:00 23:00 07:00 Intake Total 1020 ml 600 ml Balance 1020 ml 600 ml Current Medications: Meds: Current Medications Medications (Trade) Dose Ordered Sig/Davida Route PRN Reason Start Time Stop Time Status Last Admin Dose Admin Acetaminophen (Tylenol) 650 mg PRN Q6HRS PRN PO MILD PAIN / TEMP > 100.3'F 07/10/20 12:30 Multi-Ingredient Ointment (Analgesic [place]imax) 1 marvel PRN QID PRN TP MUSCLE PAIN 07/10/20 12:30 Al Hydroxide/Mg Hydroxide (Mylanta Plus Xs) 15 ml PRN AFTMEALHC PRN PO DYSPEPSIA 07/10/20 12:30 Cancel Magnesium Hydroxide (Milk Of Magnesia) 2,400 mg PRN QHS PRN PO 2ND CHOICE CONSTIPATION 07/10/20 12:30 Albuterol Sulfate (Ventolin) 2.5 mg PRN Q4HRS PRN IH FOR ASTHMA 07/10/20 15:30 Amlodipine Besylate (Norvasc) 5 mg DAILY PO 07/11/20 09:00 07/31/20 07:57 Aspirin (Aspirin Enteric Coated) 81 mg DAILY08 PO 07/11/20 08:00 07/31/20 07:55 Atorvastatin Calcium (Lipitor) 20 mg QHS PO 07/10/20 21:00 07/31/20 20:10 Clonazepam (KlonoPIN) 2 mg TID PO 07/10/20 21:00 07/20/20 16:15 DC 07/20/20 13:10 Divalproex Sodium (Depakote Er) 250 mg TID PO 07/10/20 21:00 07/18/20 18:41 DC 07/18/20 13:44 Ferrous Sulfate (Feosol) 325 mg BID PO 07/10/20 21:00 07/31/20 20:11 Guaifenesin (Mucinex Er) 600 mg PRN Q12HR PRN PO nasal congestion 07/10/20 15:30 Hydrochlorothiazide (Hydrodiuril) 25 mg DAILYWBKFT PO 07/11/20 08:00 07/31/20 07:55 Ketotifen Fumarate (Zaditor) 1 drop BID OU 07/10/20 21:00 07/31/20 20:10 Loperamide HCl (Imodium) 4 mg PRN DAILY PRN PO FIRST OCCURANCE OF DIARRHEA 07/10/20 15:30 Memantine (Namenda) 10 mg BID PO 07/10/20 21:00 07/31/20 20:10 Metformin HCl (Glucophage) 500 mg DAILYWBKFT PO 07/11/20 08:00 07/31/20 07:56 Paroxetine HCl (Paxil) 40 mg DAILY PO 07/11/20 09:00 07/12/20 11:47 DC 07/12/20 08:10 Polyethylene Glycol (miraLAX) 17 gm PRN DAILY PRN PO 1ST CHOICE CONSTIPATION 07/10/20 15:30 Artificial Tears (Artificial Tears) 1 drop PRN Q1HR PRN OU itchy eyes 07/10/20 15:30 Potassium Chloride (Klor-Con) 10 meq DAILY08 PO 07/11/20 08:00 07/31/20 07:56 Risperidone (RisperDAL) 1 mg BID PO 07/10/20 21:00 07/19/20 11:49 DC 07/19/20 08:52 Senna/Docusate Sodium (Senna Plus) 2 tab PRN BID PRN PO 3RD CHOICE CONSTIPATION 07/10/20 15:30 Calcium Carbonate/ Glycine (Tums) 1,000 mg PRN Q4HRS PRN PO HEARTBURN / GAS, 1ST CHOICE 07/10/20 16:15 Vitamin D (Vitamin D3) 2,000 unit DAILY PO 07/11/20 09:00 07/31/20 07:56 Throat Lozenges (Cepacol Sore Throat Lozenge) 1 danna PRN Q2HR PRN PO SORE THROAT 07/10/20 16:15 Guaifenesin (Robitussin Dm) 10 ml PRN Q4HRS PRN PO COUGH 07/10/20 16:15 Lisinopril (Prinivil) 40 mg DAILY PO 07/11/20 09:00 07/31/20 07:58 Loperamide HCl (Imodium) 2 mg PRN Q1HR PRN PO DIARRHEA 07/10/20 16:30 Al Hydroxide/Mg Hydroxide (Mylanta Plus Xs) 20 ml PRN Q4HRS PRN PO INDIGESTION, 2ND CHOICE 07/10/20 16:30 Multi-Ingred Cream/Lotion/Oil/ Oint (Artificial Tears Eye Ointment) 1 marvel NOON OU 07/11/20 12:00 07/31/20 12:00 Oxybutynin Chloride (Ditropan) 5 mg [id number] PO 07/10/20 21:00 07/31/20 20:11 Olanzapine (ZyPREXA ZYDIS) 2.5 mg PRN Q2HRS PRN PO PSYCHOSIS 07/10/20 20:00 07/22/20 15:52 DC 07/22/20 14:21 Fluvoxamine Maleate (Luvox) 25 mg DAILY PO 07/13/20 09:00 07/14/20 09:05 DC 07/14/20 08:25 Fluvoxamine Maleate (Luvox) 50 mg DAILY PO 07/15/20 09:00 07/16/20 09:05 DC 07/16/20 08:14 Fluvoxamine Maleate (Luvox) 75 mg DAILY PO 07/17/20 09:00 07/31/20 07:56 Divalproex Sodium (Depakote Er) 250 mg 0900 PO 07/19/20 09:00 07/20/20 16:12 DC 07/20/20 08:05 Divalproex Sodium (Depakote Er) 750 mg QHS PO 07/18/20 21:00 07/20/20 16:12 DC 07/19/20 20:59 Risperidone (RisperDAL) 2 mg BID PO 07/19/20 21:00 07/20/20 16:13 DC 07/20/20 08:06 Divalproex Sodium (Depakote Er) 500 mg 0900 PO 07/21/20 09:00 07/31/20 07:55 Divalproex Sodium (Depakote Er) 1,000 mg QHS PO 07/20/20 21:00 07/31/20 20:10 Risperidone (RisperDAL) 3 mg BID PO 07/20/20 21:00 07/31/20 20:11 Clonazepam (KlonoPIN) 1 mg QID PO 07/20/20 17:00 07/31/20 20:10 Neomycin/ Polymyxin/Bacitr/ Hydrocort (Cortisporin Ophth) 2 marvel BID OU 07/21/20 17:00 07/31/20 20:10 Quetiapine Fumarate (SEROquel) 50 mg TID PO 07/22/20 17:00 07/25/20 13:04 DC 07/25/20 12:28 Quetiapine Fumarate (SEROquel) 75 mg TID PO 07/25/20 14:00 07/31/20 20:10 Quetiapine Fumarate (SEROquel) 50 mg 1X ONCE PO 07/25/20 13:15 07/25/20 13:21 DC 07/25/20 13:24 I have reviewed the current psychotropics carefully including drug interactions. Risk benefit ratio favors no change other than as noted in my dictated progress note. Diagnosis: Problems: (1) OCD (obsessive compulsive disorder) (2) Impulse control disorder, unspecified (3) Anxiety disorder, unspecified (4) Intellectual disability BRE WYLIE MD August 01, 2020 07:56
--- NOTE | 2020-08-01 08:35 | PDOC ---
Exam Note: Anthony Note: This note is a late entry for 07/30/2020 covers elements not covered in my initial note. Subjective: The patient was seen individually in the evening of 07/30/2020 with Meron IRWIN, discussed and reviewed the chart. He slept 6-1/2 hours previous night. He is somewhat intrusive, attention seeking. He keeps asking same questions repetitively. Review of Systems: He has vague somatic symptoms. No CV, , pulmonary, eye system symptoms on review. Mental Status Exam: The patient is oriented to himself and situation. Speech repetitive, coherent, loud at times. Abstraction fair. Computation impaired. Language function intact. Mood and affect somewhat labile. Laboratory Data: Reviewed. Impression: Psychotic disorder unspecified. Obsessive-compulsive disorder. Intellectual disability. Probable bipolar disorder unspecified. Rest unchanged. Plan: I have carefully reviewed the patients current psychotropics and reviewed information with Dr. Leiva who had covered for me for the past 2 weeks. Continue psychotropics from initial note. Increase Luvox from 75 mg a day to 100 mg a day. Rest unchanged for now. Assessment: Vital Signs/I&O: Vital Signs Date Time Temp Pulse Resp B/P (MAP) Pulse Ox O2 Delivery O2 Flow Rate FiO2 08/01/20 05:36 97.3 99 20 107/59 (75) 98 Room Air I & O 07/31/20 07/31/20 08/01/20 15:00 23:00 07:00 Intake Total 1020 ml 600 ml Balance 1020 ml 600 ml Labs: Laboratory Tests Test 08/01/20 07:55 Glucose (Fingerstick) 96 mg/dL (70-99) Current Medications: Meds: Laboratory Tests Test 08/01/20 07:55 Glucose (Fingerstick) 96 mg/dL Current Medications Medications (Trade) Dose Ordered Sig/Davida Route PRN Reason Start Time Stop Time Status Last Admin Dose Admin Acetaminophen (Tylenol) 650 mg PRN Q6HRS PRN PO MILD PAIN / TEMP > 100.3'F 07/10/20 12:30 Multi-Ingredient Ointment (Analgesic [place]) 1 marvel PRN QID PRN TP MUSCLE PAIN 07/10/20 12:30 Al Hydroxide/Mg Hydroxide (Mylanta Plus Xs) 15 ml PRN AFTMEALHC PRN PO DYSPEPSIA 07/10/20 12:30 Cancel Magnesium Hydroxide (Milk Of Magnesia) 2,400 mg PRN QHS PRN PO 2ND CHOICE CONSTIPATION 07/10/20 12:30 Albuterol Sulfate (Ventolin) 2.5 mg PRN Q4HRS PRN IH FOR ASTHMA 07/10/20 15:30 Amlodipine Besylate (Norvasc) 5 mg DAILY PO 07/11/20 09:00 07/31/20 07:57 Aspirin (Aspirin Enteric Coated) 81 mg DAILY08 PO 07/11/20 08:00 07/31/20 07:55 Atorvastatin Calcium (Lipitor) 20 mg QHS PO 07/10/20 21:00 07/31/20 20:10 Clonazepam (KlonoPIN) 2 mg TID PO 07/10/20 21:00 07/20/20 16:15 DC 07/20/20 13:10 Divalproex Sodium (Depakote Er) 250 mg TID PO 07/10/20 21:00 07/18/20 18:41 DC 07/18/20 13:44 Ferrous Sulfate (Feosol) 325 mg BID PO 07/10/20 21:00 07/31/20 20:11 Guaifenesin (Mucinex Er) 600 mg PRN Q12HR PRN PO nasal congestion 07/10/20 15:30 Hydrochlorothiazide (Hydrodiuril) 25 mg DAILYWBKFT PO 07/11/20 08:00 07/31/20 07:55 Ketotifen Fumarate (Zaditor) 1 drop BID OU 07/10/20 21:00 07/31/20 20:10 Loperamide HCl (Imodium) 4 mg PRN DAILY PRN PO FIRST OCCURANCE OF DIARRHEA 07/10/20 15:30 Memantine (Namenda) 10 mg BID PO 07/10/20 21:00 07/31/20 20:10 Metformin HCl (Glucophage) 500 mg DAILYWBKFT PO 07/11/20 08:00 07/31/20 07:56 Paroxetine HCl (Paxil) 40 mg DAILY PO 07/11/20 09:00 07/12/20 11:47 DC 07/12/20 08:10 Polyethylene Glycol (miraLAX) 17 gm PRN DAILY PRN PO 1ST CHOICE CONSTIPATION 07/10/20 15:30 Artificial Tears (Artificial Tears) 1 drop PRN Q1HR PRN OU itchy eyes 07/10/20 15:30 Potassium Chloride (Klor-Con) 10 meq DAILY08 PO 07/11/20 08:00 07/31/20 07:56 Risperidone (RisperDAL) 1 mg BID PO 07/10/20 21:00 07/19/20 11:49 DC 07/19/20 08:52 Senna/Docusate Sodium (Senna Plus) 2 tab PRN BID PRN PO 3RD CHOICE CONSTIPATION 07/10/20 15:30 Calcium Carbonate/ Glycine (Tums) 1,000 mg PRN Q4HRS PRN PO HEARTBURN / GAS, 1ST CHOICE 07/10/20 16:15 Vitamin D (Vitamin D3) 2,000 unit DAILY PO 07/11/20 09:00 07/31/20 07:56 Throat Lozenges (Cepacol Sore Throat Lozenge) 1 danna PRN Q2HR PRN PO SORE THROAT 07/10/20 16:15 Guaifenesin (Robitussin Dm) 10 ml PRN Q4HRS PRN PO COUGH 07/10/20 16:15 Lisinopril (Prinivil) 40 mg DAILY PO 07/11/20 09:00 07/31/20 07:58 Loperamide HCl (Imodium) 2 mg PRN Q1HR PRN PO DIARRHEA 07/10/20 16:30 Al Hydroxide/Mg Hydroxide (Mylanta Plus Xs) 20 ml PRN Q4HRS PRN PO INDIGESTION, 2ND CHOICE 07/10/20 16:30 Multi-Ingred Cream/Lotion/Oil/ Oint (Artificial Tears Eye Ointment) 1 marvel NOON OU 07/11/20 12:00 07/31/20 12:00 Oxybutynin Chloride (Ditropan) 5 mg [id number] PO 07/10/20 21:00 07/31/20 20:11 Olanzapine (ZyPREXA ZYDIS) 2.5 mg PRN Q2HRS PRN PO PSYCHOSIS 07/10/20 20:00 07/22/20 15:52 DC 07/22/20 14:21 Fluvoxamine Maleate (Luvox) 25 mg DAILY PO 07/13/20 09:00 07/14/20 09:05 DC 07/14/20 08:25 Fluvoxamine Maleate (Luvox) 50 mg DAILY PO 07/15/20 09:00 07/16/20 09:05 DC 07/16/20 08:14 Fluvoxamine Maleate (Luvox) 75 mg DAILY PO 07/17/20 09:00 07/31/20 07:56 Divalproex Sodium (Depakote Er) 250 mg 0900 PO 07/19/20 09:00 07/20/20 16:12 DC 07/20/20 08:05 Divalproex Sodium (Depakote Er) 750 mg QHS PO 07/18/20 21:00 07/20/20 16:12 DC 07/19/20 20:59 Risperidone (RisperDAL) 2 mg BID PO 07/19/20 21:00 07/20/20 16:13 DC 07/20/20 08:06 Divalproex Sodium (Depakote Er) 500 mg 0900 PO 07/21/20 09:00 07/31/20 07:55 Divalproex Sodium (Depakote Er) 1,000 mg QHS PO 07/20/20 21:00 07/31/20 20:10 Risperidone (RisperDAL) 3 mg BID PO 07/20/20 21:00 07/31/20 20:11 Clonazepam (KlonoPIN) 1 mg QID PO 07/20/20 17:00 07/31/20 20:10 Neomycin/ Polymyxin/Bacitr/ Hydrocort (Cortisporin Ophth) 2 marvel BID OU 07/21/20 17:00 07/31/20 20:10 Quetiapine Fumarate (SEROquel) 50 mg TID PO 07/22/20 17:00 07/25/20 13:04 DC 07/25/20 12:28 Quetiapine Fumarate (SEROquel) 75 mg TID PO 07/25/20 14:00 07/31/20 20:10 Quetiapine Fumarate (SEROquel) 50 mg 1X ONCE PO 07/25/20 13:15 07/25/20 13:21 DC 07/25/20 13:24 I have reviewed the current psychotropics carefully including drug interactions. Risk benefit ratio favors no change other than as noted in my dictated progress note. Diagnosis: Problems: (1) Psychotic disorder (2) OCD (obsessive compulsive disorder) (3) Impulse control disorder, unspecified (4) Anxiety disorder, unspecified (5) Intellectual disability BRE WYLIE MD August 01, 2020 08:35
[2020-08-01] MEDS: risperiDONE 2 MG TABLET. PO SCH ×2 (08:52→20:44)
[2020-08-01] MEDS: DIVALPROEX ER 500 MG TAB.ER.24H PO SCH ×2 (08:52→20:44)
[2020-08-01] MEDS: ASPIRIN ENTERIC COATED 81 MG TABLET.DR. PO SCH (08:52)
[2020-08-01] MEDS: metFORMIN 500 MG TABLET PO SCH (08:53)
[2020-08-01] MEDS: amLODIPine BESYLATE 5 MG TABLET PO SCH (08:53)
[2020-08-01] MEDS: hydroCHLOROthiazide 25 MG TABLET PO SCH (08:53)
[2020-08-01] MEDS: OXYBUTYNIN CHLORIDE 5 MG TABLET PO SCH ×3 (08:53→20:45)
[2020-08-01] MEDS: POTASSIUM CHLORIDE 10 MEQ TABLET.ER. PO SCH (08:53)
[2020-08-01] MEDS: MEMANTINE 10 MG TABLET. PO SCH ×2 (08:53→20:45)
[2020-08-01] MEDS: QUEtiapine 25 MG TABLET. PO SCH ×3 (08:54→20:44)
[2020-08-01] MEDS: FERROUS SULFATE 325 MG TABLET. PO SCH ×2 (08:54→20:44)
[2020-08-01] MEDS: LISINOPRIL 20 MG TABLET PO SCH (08:54)
[2020-08-01] MEDS: CHOLECALCIFEROL (VITAMIN D3) 1,000 UNIT TABLET PO SCH (08:54)
[2020-08-01] MEDS: clonazePAM 1 MG TABLET PO SCH ×4 (08:54→20:45)
[2020-08-01] MEDS: NEOMYCIN/BACI/POLY/HC OPHTH OINTMENT 3.5GM TUBE. OU SCH ×2 (08:55→20:45)
[2020-08-01] MEDS: KETOTIFEN FUMARATE 0.025% OPHT SOLUTION BOTTLE. OU SCH ×2 (08:55→20:45)
--- NOTE | 2020-08-01 08:58 | PDOC ---
Exam Note: Anthony Note: This note is a late entry for 07/31/2020 covers elements not covered in my initial note. Subjective: The patient was seen individually in the evening of 07/31/2020 with Fernando IRWIN, discussed and reviewed the chart. He slept 7-1/2 hours previous night. He has been less obsessive, anxious, still very repetitive following me around the unit after I met with him at some length, repeating the same questions. Review of Systems: He has vague somatic symptoms. No CV, , pulmonary, eye system symptoms on review. Mental Status Exam: The patient is oriented to himself and situation. Speech repetitive, coherent, loud at times. Abstraction fair. Computation impaired. Language function intact. Mood and affect somewhat labile. Laboratory Data: Reviewed. Impression: Psychotic disorder unspecified. Obsessive-compulsive disorder. Intellectual disability. Probable bipolar disorder unspecified. Rest unchanged. Plan: Continue psychotropics from initial note. Assessment: Vital Signs/I&O: Vital Signs Date Time Temp Pulse Resp B/P (MAP) Pulse Ox O2 Delivery O2 Flow Rate FiO2 08/01/20 08:54 99 107/59 08/01/20 05:36 97.3 20 98 Room Air I & O 07/31/20 07/31/20 08/01/20 14:59 22:59 06:59 Intake Total 1020 ml 600 ml Balance 1020 ml 600 ml Labs: Laboratory Tests Test 08/01/20 07:55 Glucose (Fingerstick) 96 mg/dL (70-99) Current Medications: Meds: Laboratory Tests Test 08/01/20 07:55 Glucose (Fingerstick) 96 mg/dL Current Medications Medications (Trade) Dose Ordered Sig/Davida Route PRN Reason Start Time Stop Time Status Last Admin Dose Admin Acetaminophen (Tylenol) 650 mg PRN Q6HRS PRN PO MILD PAIN / TEMP > 100.3'F 07/10/20 12:30 Multi-Ingredient Ointment (Analgesic [place]) 1 marvel PRN QID PRN TP MUSCLE PAIN 07/10/20 12:30 Al Hydroxide/Mg Hydroxide (Mylanta Plus Xs) 15 ml PRN AFTMEALHC PRN PO DYSPEPSIA 07/10/20 12:30 Cancel Magnesium Hydroxide (Milk Of Magnesia) 2,400 mg PRN QHS PRN PO 2ND CHOICE CONSTIPATION 07/10/20 12:30 Albuterol Sulfate (Ventolin) 2.5 mg PRN Q4HRS PRN IH FOR ASTHMA 07/10/20 15:30 Amlodipine Besylate (Norvasc) 5 mg DAILY PO 07/11/20 09:00 08/01/20 08:53 Aspirin (Aspirin Enteric Coated) 81 mg DAILY08 PO 07/11/20 08:00 08/01/20 08:52 Atorvastatin Calcium (Lipitor) 20 mg QHS PO 07/10/20 21:00 07/31/20 20:10 Clonazepam (KlonoPIN) 2 mg TID PO 07/10/20 21:00 07/20/20 16:15 DC 07/20/20 13:10 Divalproex Sodium (Depakote Er) 250 mg TID PO 07/10/20 21:00 07/18/20 18:41 DC 07/18/20 13:44 Ferrous Sulfate (Feosol) 325 mg BID PO 07/10/20 21:00 08/01/20 08:54 Guaifenesin (Mucinex Er) 600 mg PRN Q12HR PRN PO nasal congestion 07/10/20 15:30 Hydrochlorothiazide (Hydrodiuril) 25 mg DAILYWBKFT PO 07/11/20 08:00 08/01/20 08:53 Ketotifen Fumarate (Zaditor) 1 drop BID OU 07/10/20 21:00 08/01/20 08:55 Loperamide HCl (Imodium) 4 mg PRN DAILY PRN PO FIRST OCCURANCE OF DIARRHEA 07/10/20 15:30 Memantine (Namenda) 10 mg BID PO 07/10/20 21:00 08/01/20 08:53 Metformin HCl (Glucophage) 500 mg DAILYWBKFT PO 07/11/20 08:00 08/01/20 08:53 Paroxetine HCl (Paxil) 40 mg DAILY PO 07/11/20 09:00 07/12/20 11:47 DC 07/12/20 08:10 Polyethylene Glycol (miraLAX) 17 gm PRN DAILY PRN PO 1ST CHOICE CONSTIPATION 07/10/20 15:30 Artificial Tears (Artificial Tears) 1 drop PRN Q1HR PRN OU itchy eyes 07/10/20 15:30 Potassium Chloride (Klor-Con) 10 meq DAILY08 PO 07/11/20 08:00 08/01/20 08:53 Risperidone (RisperDAL) 1 mg BID PO 07/10/20 21:00 07/19/20 11:49 DC 07/19/20 08:52 Senna/Docusate Sodium (Senna Plus) 2 tab PRN BID PRN PO 3RD CHOICE CONSTIPATION 07/10/20 15:30 Calcium Carbonate/ Glycine (Tums) 1,000 mg PRN Q4HRS PRN PO HEARTBURN / GAS, 1ST CHOICE 07/10/20 16:15 Vitamin D (Vitamin D3) 2,000 unit DAILY PO 07/11/20 09:00 08/01/20 08:54 Throat Lozenges (Cepacol Sore Throat Lozenge) 1 danna PRN Q2HR PRN PO SORE THROAT 07/10/20 16:15 Guaifenesin (Robitussin Dm) 10 ml PRN Q4HRS PRN PO COUGH 07/10/20 16:15 Lisinopril (Prinivil) 40 mg DAILY PO 07/11/20 09:00 08/01/20 08:54 Loperamide HCl (Imodium) 2 mg PRN Q1HR PRN PO DIARRHEA 07/10/20 16:30 Al Hydroxide/Mg Hydroxide (Mylanta Plus Xs) 20 ml PRN Q4HRS PRN PO INDIGESTION, 2ND CHOICE 07/10/20 16:30 Multi-Ingred Cream/Lotion/Oil/ Oint (Artificial Tears Eye Ointment) 1 marvel NOON OU 07/11/20 12:00 07/31/20 12:00 Oxybutynin Chloride (Ditropan) 5 mg [id number] PO 07/10/20 21:00 08/01/20 08:53 Olanzapine (ZyPREXA ZYDIS) 2.5 mg PRN Q2HRS PRN PO PSYCHOSIS 07/10/20 20:00 07/22/20 15:52 DC 07/22/20 14:21 Fluvoxamine Maleate (Luvox) 25 mg DAILY PO 07/13/20 09:00 07/14/20 09:05 DC 07/14/20 08:25 Fluvoxamine Maleate (Luvox) 50 mg DAILY PO 07/15/20 09:00 07/16/20 09:05 DC 07/16/20 08:14 Fluvoxamine Maleate (Luvox) 75 mg DAILY PO 07/17/20 09:00 08/01/20 08:52 Divalproex Sodium (Depakote Er) 250 mg 0900 PO 07/19/20 09:00 07/20/20 16:12 DC 07/20/20 08:05 Divalproex Sodium (Depakote Er) 750 mg QHS PO 07/18/20 21:00 07/20/20 16:12 DC 07/19/20 20:59 Risperidone (RisperDAL) 2 mg BID PO 07/19/20 21:00 07/20/20 16:13 DC 07/20/20 08:06 Divalproex Sodium (Depakote Er) 500 mg 0900 PO 07/21/20 09:00 08/01/20 08:52 Divalproex Sodium (Depakote Er) 1,000 mg QHS PO 07/20/20 21:00 07/31/20 20:10 Risperidone (RisperDAL) 3 mg BID PO 07/20/20 21:00 08/01/20 08:52 Clonazepam (KlonoPIN) 1 mg QID PO 07/20/20 17:00 08/01/20 08:54 Neomycin/ Polymyxin/Bacitr/ Hydrocort (Cortisporin Ophth) 2 marvel BID OU 07/21/20 17:00 08/01/20 08:55 Quetiapine Fumarate (SEROquel) 50 mg TID PO 07/22/20 17:00 07/25/20 13:04 DC 07/25/20 12:28 Quetiapine Fumarate (SEROquel) 75 mg TID PO 07/25/20 14:00 08/01/20 08:54 Quetiapine Fumarate (SEROquel) 50 mg 1X ONCE PO 07/25/20 13:15 07/25/20 13:21 DC 07/25/20 13:24 I have reviewed the current psychotropics carefully including drug interactions. Risk benefit ratio favors no change other than as noted in my dictated progress note. Diagnosis: Problems: (1) OCD (obsessive compulsive disorder) (2) Impulse control disorder, unspecified (3) Anxiety disorder, unspecified (4) Intellectual disability (5) Psychotic disorder BRE WYLIE MD August 01, 2020 08:58
[2020-08-01] MEDS: MINERAL OIL/PETROLATUM,WHITE OPHTH OINT 3.5GM TUBE. OU SCH (12:24)
[2020-08-01 16:03] VITALS: BP 102/70
[2020-08-01] MEDS: ATORVASTATIN CALCIUM 20 MG TABLET PO SCH (20:45)
--- NOTE | 2020-08-01 22:13 | PDOC ---
Exam Note: Anthony Note: Please also refer to the separate dictated note~for this date of service dictated separately.~Patient seen individually. Discussed the patient with Nursing staff reviewed the chart.~Reviewed interim history and current functioning. Reviewed vital signs,~Labs/ Radiology~and current medications noted below. Continue current treatment with the changes noted in the dictated addendum note Assessment: Vital Signs/I&O: Vital Signs Date Time Temp Pulse Resp B/P (MAP) Pulse Ox O2 Delivery O2 Flow Rate FiO2 08/01/20 16:03 97.6 72 18 102/70 (81) 96 08/01/20 05:36 Room Air I & O 07/31/20 07/31/20 08/01/20 15:00 23:00 07:00 Intake Total 1020 ml 600 ml Balance 1020 ml 600 ml Labs: Laboratory Tests Test 08/01/20 07:55 Glucose (Fingerstick) 96 mg/dL (70-99) Current Medications: Meds: Laboratory Tests Test 08/01/20 07:55 Glucose (Fingerstick) 96 mg/dL Current Medications Medications (Trade) Dose Ordered Sig/Davida Route PRN Reason Start Time Stop Time Status Last Admin Dose Admin Acetaminophen (Tylenol) 650 mg PRN Q6HRS PRN PO MILD PAIN / TEMP > 100.3'F 07/10/20 12:30 Multi-Ingredient Ointment (Analgesic [place]) 1 marvel PRN QID PRN TP MUSCLE PAIN 07/10/20 12:30 Al Hydroxide/Mg Hydroxide (Mylanta Plus Xs) 15 ml PRN AFTMEALHC PRN PO DYSPEPSIA 07/10/20 12:30 Cancel Magnesium Hydroxide (Milk Of Magnesia) 2,400 mg PRN QHS PRN PO 2ND CHOICE CONSTIPATION 07/10/20 12:30 Albuterol Sulfate (Ventolin) 2.5 mg PRN Q4HRS PRN IH FOR ASTHMA 07/10/20 15:30 Amlodipine Besylate (Norvasc) 5 mg DAILY PO 07/11/20 09:00 08/01/20 08:53 Aspirin (Aspirin Enteric Coated) 81 mg DAILY08 PO 07/11/20 08:00 08/01/20 08:52 Atorvastatin Calcium (Lipitor) 20 mg QHS PO 07/10/20 21:00 08/01/20 20:45 Clonazepam (KlonoPIN) 2 mg TID PO 07/10/20 21:00 07/20/20 16:15 DC 07/20/20 13:10 Divalproex Sodium (Depakote Er) 250 mg TID PO 07/10/20 21:00 07/18/20 18:41 DC 07/18/20 13:44 Ferrous Sulfate (Feosol) 325 mg BID PO 07/10/20 21:00 08/01/20 20:44 Guaifenesin (Mucinex Er) 600 mg PRN Q12HR PRN PO nasal congestion 07/10/20 15:30 Hydrochlorothiazide (Hydrodiuril) 25 mg DAILYWBKFT PO 07/11/20 08:00 08/01/20 08:53 Ketotifen Fumarate (Zaditor) 1 drop BID OU 07/10/20 21:00 08/01/20 20:45 Loperamide HCl (Imodium) 4 mg PRN DAILY PRN PO FIRST OCCURANCE OF DIARRHEA 07/10/20 15:30 Memantine (Namenda) 10 mg BID PO 07/10/20 21:00 08/01/20 20:45 Metformin HCl (Glucophage) 500 mg DAILYWBKFT PO 07/11/20 08:00 08/01/20 08:53 Paroxetine HCl (Paxil) 40 mg DAILY PO 07/11/20 09:00 07/12/20 11:47 DC 07/12/20 08:10 Polyethylene Glycol (miraLAX) 17 gm PRN DAILY PRN PO 1ST CHOICE CONSTIPATION 07/10/20 15:30 Artificial Tears (Artificial Tears) 1 drop PRN Q1HR PRN OU itchy eyes 07/10/20 15:30 Potassium Chloride (Klor-Con) 10 meq DAILY08 PO 07/11/20 08:00 08/01/20 08:53 Risperidone (RisperDAL) 1 mg BID PO 07/10/20 21:00 07/19/20 11:49 DC 07/19/20 08:52 Senna/Docusate Sodium (Senna Plus) 2 tab PRN BID PRN PO 3RD CHOICE CONSTIPATION 07/10/20 15:30 Calcium Carbonate/ Glycine (Tums) 1,000 mg PRN Q4HRS PRN PO HEARTBURN / GAS, 1ST CHOICE 07/10/20 16:15 Vitamin D (Vitamin D3) 2,000 unit DAILY PO 07/11/20 09:00 08/01/20 08:54 Throat Lozenges (Cepacol Sore Throat Lozenge) 1 danna PRN Q2HR PRN PO SORE THROAT 07/10/20 16:15 Guaifenesin (Robitussin Dm) 10 ml PRN Q4HRS PRN PO COUGH 07/10/20 16:15 Lisinopril (Prinivil) 40 mg DAILY PO 07/11/20 09:00 08/01/20 08:54 Loperamide HCl (Imodium) 2 mg PRN Q1HR PRN PO DIARRHEA 07/10/20 16:30 Al Hydroxide/Mg Hydroxide (Mylanta Plus Xs) 20 ml PRN Q4HRS PRN PO INDIGESTION, 2ND CHOICE 07/10/20 16:30 Multi-Ingred Cream/Lotion/Oil/ Oint (Artificial Tears Eye Ointment) 1 marvel NOON OU 07/11/20 12:00 08/01/20 12:24 Oxybutynin Chloride (Ditropan) 5 mg [id number] PO 07/10/20 21:00 08/01/20 20:45 Olanzapine (ZyPREXA ZYDIS) 2.5 mg PRN Q2HRS PRN PO PSYCHOSIS 07/10/20 20:00 07/22/20 15:52 DC 07/22/20 14:21 Fluvoxamine Maleate (Luvox) 25 mg DAILY PO 07/13/20 09:00 07/14/20 09:05 DC 07/14/20 08:25 Fluvoxamine Maleate (Luvox) 50 mg DAILY PO 07/15/20 09:00 07/16/20 09:05 DC 07/16/20 08:14 Fluvoxamine Maleate (Luvox) 75 mg DAILY PO 07/17/20 09:00 08/01/20 18:48 DC 08/01/20 08:52 Divalproex Sodium (Depakote Er) 250 mg 0900 PO 07/19/20 09:00 07/20/20 16:12 DC 07/20/20 08:05 Divalproex Sodium (Depakote Er) 750 mg QHS PO 07/18/20 21:00 07/20/20 16:12 DC 07/19/20 20:59 Risperidone (RisperDAL) 2 mg BID PO 07/19/20 21:00 07/20/20 16:13 DC 07/20/20 08:06 Divalproex Sodium (Depakote Er) 500 mg 0900 PO 07/21/20 09:00 08/01/20 08:52 Divalproex Sodium (Depakote Er) 1,000 mg QHS PO 07/20/20 21:00 08/01/20 20:44 Risperidone (RisperDAL) 3 mg BID PO 07/20/20 21:00 08/01/20 20:44 Clonazepam (KlonoPIN) 1 mg QID PO 07/20/20 17:00 08/01/20 20:45 Neomycin/ Polymyxin/Bacitr/ Hydrocort (Cortisporin Ophth) 2 marvel BID OU 07/21/20 17:00 08/01/20 20:45 Quetiapine Fumarate (SEROquel) 50 mg TID PO 07/22/20 17:00 07/25/20 13:04 DC 07/25/20 12:28 Quetiapine Fumarate (SEROquel) 75 mg TID PO 07/25/20 14:00 08/01/20 20:44 Quetiapine Fumarate (SEROquel) 50 mg 1X ONCE PO 07/25/20 13:15 07/25/20 13:21 DC 07/25/20 13:24 Fluvoxamine Maleate (Luvox) 100 mg DAILY PO 08/02/20 09:00 I have reviewed the current psychotropics carefully including drug interactions. Risk benefit ratio favors no change other than as noted in my dictated progress note. Diagnosis: Problems: (1) OCD (obsessive compulsive disorder) (2) Impulse control disorder, unspecified (3) Anxiety disorder, unspecified (4) Intellectual disability (5) Psychotic disorder BRE WYLIE MD August 01, 2020 22:13
[2020-08-02 06:25] VITALS: BP 121/78
[2020-08-02 06:52] LABS: BASO % 0 % (0-3); EOS # 0.4 x10^3/uL (0.0-0.7); EOS % 6 % (0-3); HEMATOCRIT 40.2 % (39.0-53.0); HEMOGLOBIN 13.6 g/dL (13.0-17.5); LYMPH # 1.4 x10^3/uL (1.0-4.8); LYMPH % 21 % (24-48); MEAN CORPUSCULAR HEMOGLOBIN 30 pg (25-35); MEAN CORPUSCULAR HGB CONC 34 g/dL (31-37); MEAN CORPUSCULAR VOLUME 88 fL (79-100); MONO # 0.7 x10^3/uL (0.0-1.1); MONO % 10 % (0-9); NEUT # 4.2 x10^3uL (1.8-7.7); NEUT % 62 % (31-73); PLATELET COUNT 185 x10^3/uL (140-400); RED BLOOD COUNT 4.54 x10^6/uL (4.30-5.70); RED CELL DISTRIBUTION WIDTH 15.6 % (11.5-14.5); WHITE BLOOD COUNT 6.7 x10^3/uL (4.0-11.0)
--- NOTE | 2020-08-02 06:57 | PDOC ---
Exam Note: Anthony Note: This note is a late entry for 08/01/2020 covers elements not covered in my initial note. Subjective: The patient was seen individually in the evening of 08/01/2020 with Sharon IRWIN, discussed and reviewed the chart. He slept 7-1/2 hours previous night. Overall the patient is doing better, less obsessive and anxious, though this evening he was following me around stating that he was praying to the Lord to get his anxiety better. He remains somewhat obsessive, but improved. Review of Systems: He has vague somatic symptoms. No CV, , pulmonary, eye system symptoms on review. Mental Status Exam: The patient is oriented to himself and situation. Speech repetitive, coherent. Abstraction fair. Computation impaired. Language function intact. Mood and affect somewhat anxious,. Laboratory Data: Reviewed. Impression: Psychotic disorder unspecified. Obsessive-compulsive disorder. Intellectual disability. Probable bipolar disorder unspecified. Rest unchanged. Plan: We will increase the Luvox from 75 mg h.s. to 100 mg h.s. Maintain Depakote, Klonopin, Namenda, Risperdal and Seroquel. He is on two atypical antipsychotics and Assessment: Vital Signs/I&O: Vital Signs Date Time Temp Pulse Resp B/P (MAP) Pulse Ox O2 Delivery O2 Flow Rate FiO2 08/02/20 06:25 97.4 71 20 121/78 (92) 96 Room Air I & O 08/01/20 08/01/20 08/02/20 15:00 23:00 07:00 Intake Total 360 ml 600 ml 120 ml Balance 360 ml 600 ml 120 ml Labs: Laboratory Tests Test 08/01/20 07:55 Glucose (Fingerstick) 96 mg/dL (70-99) Current Medications: Meds: Laboratory Tests Test 08/01/20 07:55 Glucose (Fingerstick) 96 mg/dL Current Medications Medications (Trade) Dose Ordered Sig/Davida Route PRN Reason Start Time Stop Time Status Last Admin Dose Admin Acetaminophen (Tylenol) 650 mg PRN Q6HRS PRN PO MILD PAIN / TEMP > 100.3'F 07/10/20 12:30 Multi-Ingredient Ointment (Analgesic [place]) 1 marvel PRN QID PRN TP MUSCLE PAIN 07/10/20 12:30 Al Hydroxide/Mg Hydroxide (Mylanta Plus Xs) 15 ml PRN AFTMEALHC PRN PO DYSPEPSIA 07/10/20 12:30 Cancel Magnesium Hydroxide (Milk Of Magnesia) 2,400 mg PRN QHS PRN PO 2ND CHOICE CONSTIPATION 07/10/20 12:30 Albuterol Sulfate (Ventolin) 2.5 mg PRN Q4HRS PRN IH FOR ASTHMA 07/10/20 15:30 Amlodipine Besylate (Norvasc) 5 mg DAILY PO 07/11/20 09:00 08/01/20 08:53 Aspirin (Aspirin Enteric Coated) 81 mg DAILY08 PO 07/11/20 08:00 08/01/20 08:52 Atorvastatin Calcium (Lipitor) 20 mg QHS PO 07/10/20 21:00 08/01/20 20:45 Clonazepam (KlonoPIN) 2 mg TID PO 07/10/20 21:00 07/20/20 16:15 DC 07/20/20 13:10 Divalproex Sodium (Depakote Er) 250 mg TID PO 07/10/20 21:00 07/18/20 18:41 DC 07/18/20 13:44 Ferrous Sulfate (Feosol) 325 mg BID PO 07/10/20 21:00 08/01/20 20:44 Guaifenesin (Mucinex Er) 600 mg PRN Q12HR PRN PO nasal congestion 07/10/20 15:30 Hydrochlorothiazide (Hydrodiuril) 25 mg DAILYWBKFT PO 07/11/20 08:00 08/01/20 08:53 Ketotifen Fumarate (Zaditor) 1 drop BID OU 07/10/20 21:00 08/01/20 20:45 Loperamide HCl (Imodium) 4 mg PRN DAILY PRN PO FIRST OCCURANCE OF DIARRHEA 07/10/20 15:30 Memantine (Namenda) 10 mg BID PO 07/10/20 21:00 08/01/20 20:45 Metformin HCl (Glucophage) 500 mg DAILYWBKFT PO 07/11/20 08:00 08/01/20 08:53 Paroxetine HCl (Paxil) 40 mg DAILY PO 07/11/20 09:00 07/12/20 11:47 DC 07/12/20 08:10 Polyethylene Glycol (miraLAX) 17 gm PRN DAILY PRN PO 1ST CHOICE CONSTIPATION 07/10/20 15:30 Artificial Tears (Artificial Tears) 1 drop PRN Q1HR PRN OU itchy eyes 07/10/20 15:30 Potassium Chloride (Klor-Con) 10 meq DAILY08 PO 07/11/20 08:00 08/01/20 08:53 Risperidone (RisperDAL) 1 mg BID PO 07/10/20 21:00 07/19/20 11:49 DC 07/19/20 08:52 Senna/Docusate Sodium (Senna Plus) 2 tab PRN BID PRN PO 3RD CHOICE CONSTIPATION 07/10/20 15:30 Calcium Carbonate/ Glycine (Tums) 1,000 mg PRN Q4HRS PRN PO HEARTBURN / GAS, 1ST CHOICE 07/10/20 16:15 Vitamin D (Vitamin D3) 2,000 unit DAILY PO 07/11/20 09:00 08/01/20 08:54 Throat Lozenges (Cepacol Sore Throat Lozenge) 1 danna PRN Q2HR PRN PO SORE THROAT 07/10/20 16:15 Guaifenesin (Robitussin Dm) 10 ml PRN Q4HRS PRN PO COUGH 07/10/20 16:15 Lisinopril (Prinivil) 40 mg DAILY PO 07/11/20 09:00 08/01/20 08:54 Loperamide HCl (Imodium) 2 mg PRN Q1HR PRN PO DIARRHEA 07/10/20 16:30 Al Hydroxide/Mg Hydroxide (Mylanta Plus Xs) 20 ml PRN Q4HRS PRN PO INDIGESTION, 2ND CHOICE 07/10/20 16:30 Multi-Ingred Cream/Lotion/Oil/ Oint (Artificial Tears Eye Ointment) 1 marvel NOON OU 07/11/20 12:00 08/01/20 12:24 Oxybutynin Chloride (Ditropan) 5 mg [id number] PO 07/10/20 21:00 08/01/20 20:45 Olanzapine (ZyPREXA ZYDIS) 2.5 mg PRN Q2HRS PRN PO PSYCHOSIS 07/10/20 20:00 07/22/20 15:52 DC 07/22/20 14:21 Fluvoxamine Maleate (Luvox) 25 mg DAILY PO 07/13/20 09:00 07/14/20 09:05 DC 07/14/20 08:25 Fluvoxamine Maleate (Luvox) 50 mg DAILY PO 07/15/20 09:00 07/16/20 09:05 DC 07/16/20 08:14 Fluvoxamine Maleate (Luvox) 75 mg DAILY PO 07/17/20 09:00 08/01/20 18:48 DC 08/01/20 08:52 Divalproex Sodium (Depakote Er) 250 mg 0900 PO 07/19/20 09:00 07/20/20 16:12 DC 07/20/20 08:05 Divalproex Sodium (Depakote Er) 750 mg QHS PO 07/18/20 21:00 07/20/20 16:12 DC 07/19/20 20:59 Risperidone (RisperDAL) 2 mg BID PO 07/19/20 21:00 07/20/20 16:13 DC 07/20/20 08:06 Divalproex Sodium (Depakote Er) 500 mg 0900 PO 07/21/20 09:00 08/01/20 08:52 Divalproex Sodium (Depakote Er) 1,000 mg QHS PO 07/20/20 21:00 08/01/20 20:44 Risperidone (RisperDAL) 3 mg BID PO 07/20/20 21:00 08/01/20 20:44 Clonazepam (KlonoPIN) 1 mg QID PO 07/20/20 17:00 08/01/20 20:45 Neomycin/ Polymyxin/Bacitr/ Hydrocort (Cortisporin Ophth) 2 marvel BID OU 07/21/20 17:00 08/01/20 20:45 Quetiapine Fumarate (SEROquel) 50 mg TID PO 07/22/20 17:00 07/25/20 13:04 DC 07/25/20 12:28 Quetiapine Fumarate (SEROquel) 75 mg TID PO 07/25/20 14:00 08/01/20 20:44 Quetiapine Fumarate (SEROquel) 50 mg 1X ONCE PO 07/25/20 13:15 07/25/20 13:21 DC 07/25/20 13:24 Fluvoxamine Maleate (Luvox) 100 mg DAILY PO 08/02/20 09:00 I have reviewed the current psychotropics carefully including drug interactions. Risk benefit ratio favors no change other than as noted in my dictated progress note. Diagnosis: Problems: (1) OCD (obsessive compulsive disorder) (2) Impulse control disorder, unspecified (3) Anxiety disorder, unspecified (4) Intellectual disability (5) Psychotic disorder BRE WYLIE MD August 02, 2020 06:57
[2020-08-02 07:09] LABS: ALBUMIN 3.4 g/dL (3.4-5.0); ALBUMIN/GLOBULIN RATIO 0.8 (1.0-1.7); ALK PHOS 70 U/L (46-116); ALT (SGPT) 20 U/L (16-63); ANION GAP 7 (6-14); AST (SGOT) 17 U/L (15-37); BLOOD UREA NITROGEN 14 mg/dL (8-26); BUN/CREATININE RATIO 18 (6-20); CALCIUM 8.4 mg/dL (8.5-10.1); CARBON DIOXIDE 31 mmol/L (21-32); CHLORIDE 98 mmol/L (98-107); CREATININE 0.8 mg/dL (0.7-1.3); GLUCOSE 90 mg/dL (70-99); POTASSIUM 4.2 mmol/L (3.5-5.1); SODIUM 136 mmol/L (136-145); TOTAL BILIRUBIN 0.4 mg/dL (0.2-1.0); TOTAL PROTEIN 7.5 g/dL (6.4-8.2)
[2020-08-02 07:12] LABS: VAL ACID 89 mcg/mL (50-100)
[2020-08-02] MEDS: KETOTIFEN FUMARATE 0.025% OPHT SOLUTION BOTTLE. OU SCH ×2 (08:29→20:46)
[2020-08-02] MEDS: NEOMYCIN/BACI/POLY/HC OPHTH OINTMENT 3.5GM TUBE. OU SCH ×2 (08:30→20:47)
[2020-08-02] MEDS: ASPIRIN ENTERIC COATED 81 MG TABLET.DR. PO SCH (08:30)
[2020-08-02] MEDS: QUEtiapine 25 MG TABLET. PO SCH ×3 (08:30→20:47)
[2020-08-02] MEDS: amLODIPine BESYLATE 5 MG TABLET PO SCH (08:31)
[2020-08-02] MEDS: DIVALPROEX ER 500 MG TAB.ER.24H PO SCH ×2 (08:31→20:48)
[2020-08-02] MEDS: FERROUS SULFATE 325 MG TABLET. PO SCH ×2 (08:31→20:47)
[2020-08-02] MEDS: CHOLECALCIFEROL (VITAMIN D3) 1,000 UNIT TABLET PO SCH (08:32)
[2020-08-02] MEDS: risperiDONE 2 MG TABLET. PO SCH ×2 (08:33→20:47)
[2020-08-02] MEDS: LISINOPRIL 20 MG TABLET PO SCH (08:34)
[2020-08-02] MEDS: MEMANTINE 10 MG TABLET. PO SCH ×2 (08:34→20:47)
[2020-08-02] MEDS: POTASSIUM CHLORIDE 10 MEQ TABLET.ER. PO SCH (08:35)
[2020-08-02] MEDS: OXYBUTYNIN CHLORIDE 5 MG TABLET PO SCH ×3 (08:35→20:47)
[2020-08-02] MEDS: metFORMIN 500 MG TABLET PO SCH (08:35)
[2020-08-02] MEDS: hydroCHLOROthiazide 25 MG TABLET PO SCH (08:35)
[2020-08-02] MEDS: clonazePAM 1 MG TABLET PO SCH ×4 (08:37→20:57)
[2020-08-02] MEDS: MINERAL OIL/PETROLATUM,WHITE OPHTH OINT 3.5GM TUBE. OU SCH (12:15)
[2020-08-02 15:56] VITALS: BP 109/71
--- NOTE | 2020-08-02 16:28 | TX PLAN ---
Interdisciplinary Tx Plan Admission Information July 10, 2020 at 11:18 Legal Status (on Admission): Voluntary DPOA/Guardian Name: Claudia Garcia Contact Other Contact Name: Camila Other Contact Verified Code Status: DNR Allergies: Coded Allergies: doxycycline (Verified Allergy, Mild, rash, 07/10/20) Diagnoses Primary Diagnosis: Psychosis unspecified Reasons for Admission: Aggressive, Agitated, Anxiety/Panic, Confusion/Disoriented, Poor impulse control Problem in Patient's Words: Pt does not wish to return to his placement at [facility] Additional Admission Comments: According the intake pt was admitted from [facility] ED for reportedly being manic, physically aggressive, anxious, and demanding to be allowed to leave [facility]. Problems Active Problems: manic anxious obsessive Inactive Problems: medication management Pt Strengths/Limitations Ability for [place]: Poor Cognitive Functioning/Ability: Fair Communication Skills/Ability: Poor Financial Resources: Fair Insight/Judgement: Poor Intellectual Ability: Poor Physical Health: Fair Social Skills: Poor Stability in Family: Excellent Stability in School/Work: Poor Verbal Skills: Fair Discharge Criteria Discharge Criteria: No need for close observ., Adequate arrangements @DC, Improved behavior, Improved mood/thought Preliminary Discharge Plan Preliminary DC Plan: Current Living Arrange., Other Special Precautions Fall Risk: Moderate Initial D/C Plan Pt may return to [facility] versus a different facility Identified Discharge Needs: Potential for higher level of care referrals Currently Utilized Resources Currently Utilized Resources/P: Primary Care Physician Identified Problems/Hx/Goals Objectives/Short-Term Goals Short Term Goals: Dec. Aggression, Dec. Outbursts, Improved Social Skills, Medication Stabilization, Monitor Med Effects Short Term Goals in Patient's: I don't want to go back to [facility] Interventions/Frequency Staff Interventions/Frequency&: Psychiatrist to assess pt at least 3x per week for medication mgmt. Social Work to assess pt at least 2x per week to identify barriers to care and finalize discharge planning. Nursing to assess medication effects, behavior modification, and completion of 15 minute checks daily. Encouarge participation in group activities (if applicable) adorno 1:1 engagement based off activity goals. History Vocational History: Pt worked at [employer] for less than a year because he could not follow directions and created trouble with his behavior. 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 Education: In the 3rd grade, teachers noticed that pt was not doing well and decided to have him tested. 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 Pt did graduate high school, although e was a year or two behind when he completed 12th grade. Community Follow-up Primary Care Physician Treatment Plan Explained Patient/Customer Expert had this treatment plan explained to him/her as indicated by the signature below and has been given the opportunity to ask questions and make suggestions: Date: Patient/Customer Expert Signature: Status Update Update Pt is eating 100% of meals and sleeping on average 7 hours per night. Although pt continues to be anxious, it is noted that he is less intrusive and less attention but does still require redirection from time to time for these behaviors. Pt is medication compliant and cooperative with all cares. Pt will plan to return to [facility] on Thursday (08/08) next week. SW to finalize discharge plans with pt family and staff at [facility]. AZALEA ALFRED August 02, 2020 16:28
[2020-08-02] MEDS: ATORVASTATIN CALCIUM 20 MG TABLET PO SCH (20:47)
--- NOTE | 2020-08-02 22:07 | PDOC ---
Exam Note: Anthony Note: Please also refer to the separate dictated note~for this date of service dictated separately.~Patient seen individually. Discussed the patient with Nursing staff reviewed the chart.~Reviewed interim history and current functioning. Reviewed vital signs,~Labs/ Radiology~and current medications noted below. Continue current treatment with the changes noted in the dictated addendum note Assessment: Vital Signs/I&O: Vital Signs Date Time Temp Pulse Resp B/P (MAP) Pulse Ox O2 Delivery O2 Flow Rate FiO2 08/02/20 15:56 97.0 67 20 109/71 (84) 97 08/02/20 06:25 Room Air I & O 08/01/20 08/01/20 08/02/20 15:00 23:00 07:00 Intake Total 360 ml 600 ml 120 ml Balance 360 ml 600 ml 120 ml Labs: Laboratory Tests Test 08/02/20 06:19 08/02/20 07:11 White Blood Count 6.7 x10^3/uL (4.0-11.0) Red Blood Count 4.54 x10^6/uL (4.30-5.70) Hemoglobin 13.6 g/dL (13.0-17.5) Hematocrit 40.2 % (39.0-53.0) Mean Corpuscular Volume 88 fL (79-100) Mean Corpuscular Hemoglobin 30 pg (25-35) Mean Corpuscular Hemoglobin Concent 34 g/dL (31-37) Red Cell Distribution Width 15.6 % (11.5-14.5) H Platelet Count 185 x10^3/uL (140-400) Neutrophils (%) (Auto) 62 % (31-73) Lymphocytes (%) (Auto) 21 % (24-48) L Monocytes (%) (Auto) 10 % (0-9) H Eosinophils (%) (Auto) 6 % (0-3) H Basophils (%) (Auto) 0 % (0-3) Neutrophils # (Auto) 4.2 x10^3uL (1.8-7.7) Lymphocytes # (Auto) 1.4 x10^3/uL (1.0-4.8) Monocytes # (Auto) 0.7 x10^3/uL (0.0-1.1) Eosinophils # (Auto) 0.4 x10^3/uL (0.0-0.7) Basophils # (Auto) 0.0 x10^3/uL (0.0-0.2) Sodium Level 136 mmol/L (136-145) Potassium Level 4.2 mmol/L (3.5-5.1) Chloride Level 98 mmol/L (98-107) Carbon Dioxide Level 31 mmol/L (21-32) Anion Gap 7 (6-14) Blood Urea Nitrogen 14 mg/dL (8-26) Creatinine 0.8 mg/dL (0.7-1.3) Estimated GFR (Cockcroft-Gault) 97.0 BUN/Creatinine Ratio 18 (6-20) Glucose Level 90 mg/dL (70-99) Calcium Level 8.4 mg/dL (8.5-10.1) L Total Bilirubin 0.4 mg/dL (0.2-1.0) Aspartate Amino Transferase (AST) 17 U/L (15-37) Alanine Aminotransferase (ALT) 20 U/L (16-63) Alkaline Phosphatase 70 U/L (46-116) Total Protein 7.5 g/dL (6.4-8.2) Albumin 3.4 g/dL (3.4-5.0) Albumin/Globulin Ratio 0.8 (1.0-1.7) L Valproic Acid Level 89 mcg/mL (50-100) Valproic Acid Last Dose Date 08/01/20 Valproic Acid Last Dose Time 2100 Glucose (Fingerstick) 79 mg/dL (70-99) Current Medications: Meds: Laboratory Tests Test 08/02/20 06:19 08/02/20 07:11 White Blood Count 6.7 x10^3/uL Red Blood Count 4.54 x10^6/uL Hemoglobin 13.6 g/dL Hematocrit 40.2 % Mean Corpuscular Volume 88 fL Mean Corpuscular Hemoglobin 30 pg Mean Corpuscular Hemoglobin Concent 34 g/dL Red Cell Distribution Width 15.6 % Platelet Count 185 x10^3/uL Neutrophils (%) (Auto) 62 % Lymphocytes (%) (Auto) 21 % Monocytes (%) (Auto) 10 % Eosinophils (%) (Auto) 6 % Basophils (%) (Auto) 0 % Neutrophils # (Auto) 4.2 x10^3uL Lymphocytes # (Auto) 1.4 x10^3/uL Monocytes # (Auto) 0.7 x10^3/uL Eosinophils # (Auto) 0.4 x10^3/uL Basophils # (Auto) 0.0 x10^3/uL Sodium Level 136 mmol/L Potassium Level 4.2 mmol/L Chloride Level 98 mmol/L Carbon Dioxide Level 31 mmol/L Anion Gap 7 Blood Urea Nitrogen 14 mg/dL Creatinine 0.8 mg/dL Estimated GFR (Cockcroft-Gault) 97.0 BUN/Creatinine Ratio 18 Glucose Level 90 mg/dL Calcium Level 8.4 mg/dL Total Bilirubin 0.4 mg/dL Aspartate Amino Transf (AST/SGOT) 17 U/L Alanine Aminotransferase (ALT/SGPT) 20 U/L Alkaline Phosphatase 70 U/L Total Protein 7.5 g/dL Albumin 3.4 g/dL Albumin/Globulin Ratio 0.8 Valproic Acid (Depakene) Level 89 mcg/mL Valproic Acid Last Dose Date 08/01/20 Valproic Acid Last Dose Time 2100 Glucose (Fingerstick) 79 mg/dL Current Medications Medications (Trade) Dose Ordered Sig/Davida Route PRN Reason Start Time Stop Time Status Last Admin Dose Admin Acetaminophen (Tylenol) 650 mg PRN Q6HRS PRN PO MILD PAIN / TEMP > 100.3'F 07/10/20 12:30 Multi-Ingredient Ointment (Analgesic [place]) 1 marvel PRN QID PRN TP MUSCLE PAIN 07/10/20 12:30 Al Hydroxide/Mg Hydroxide (Mylanta Plus Xs) 15 ml PRN AFTMEALHC PRN PO DYSPEPSIA 07/10/20 12:30 Cancel Magnesium Hydroxide (Milk Of Magnesia) 2,400 mg PRN QHS PRN PO 2ND CHOICE CONSTIPATION 07/10/20 12:30 Albuterol Sulfate (Ventolin) 2.5 mg PRN Q4HRS PRN IH FOR ASTHMA 07/10/20 15:30 Amlodipine Besylate (Norvasc) 5 mg DAILY PO 07/11/20 09:00 08/02/20 08:31 Aspirin (Aspirin Enteric Coated) 81 mg DAILY08 PO 07/11/20 08:00 08/02/20 08:30 Atorvastatin Calcium (Lipitor) 20 mg QHS PO 07/10/20 21:00 08/02/20 20:47 Clonazepam (KlonoPIN) 2 mg TID PO 07/10/20 21:00 07/20/20 16:15 DC 07/20/20 13:10 Divalproex Sodium (Depakote Er) 250 mg TID PO 07/10/20 21:00 07/18/20 18:41 DC 07/18/20 13:44 Ferrous Sulfate (Feosol) 325 mg BID PO 07/10/20 21:00 08/02/20 20:47 Guaifenesin (Mucinex Er) 600 mg PRN Q12HR PRN PO nasal congestion 07/10/20 15:30 Hydrochlorothiazide (Hydrodiuril) 25 mg DAILYWBKFT PO 07/11/20 08:00 08/02/20 08:35 Ketotifen Fumarate (Zaditor) 1 drop BID OU 07/10/20 21:00 08/02/20 20:46 Loperamide HCl (Imodium) 4 mg PRN DAILY PRN PO FIRST OCCURANCE OF DIARRHEA 07/10/20 15:30 Memantine (Namenda) 10 mg BID PO 07/10/20 21:00 08/02/20 20:47 Metformin HCl (Glucophage) 500 mg DAILYWBKFT PO 07/11/20 08:00 08/02/20 08:35 Paroxetine HCl (Paxil) 40 mg DAILY PO 07/11/20 09:00 07/12/20 11:47 DC 07/12/20 08:10 Polyethylene Glycol (miraLAX) 17 gm PRN DAILY PRN PO 1ST CHOICE CONSTIPATION 07/10/20 15:30 Artificial Tears (Artificial Tears) 1 drop PRN Q1HR PRN OU itchy eyes 07/10/20 15:30 Potassium Chloride (Klor-Con) 10 meq DAILY08 PO 07/11/20 08:00 08/02/20 08:35 Risperidone (RisperDAL) 1 mg BID PO 07/10/20 21:00 07/19/20 11:49 DC 07/19/20 08:52 Senna/Docusate Sodium (Senna Plus) 2 tab PRN BID PRN PO 3RD CHOICE CONSTIPATION 07/10/20 15:30 Calcium Carbonate/ Glycine (Tums) 1,000 mg PRN Q4HRS PRN PO HEARTBURN / GAS, 1ST CHOICE 07/10/20 16:15 Vitamin D (Vitamin D3) 2,000 unit DAILY PO 07/11/20 09:00 08/02/20 08:32 Throat Lozenges (Cepacol Sore Throat Lozenge) 1 danna PRN Q2HR PRN PO SORE THROAT 07/10/20 16:15 Guaifenesin (Robitussin Dm) 10 ml PRN Q4HRS PRN PO COUGH 07/10/20 16:15 Lisinopril (Prinivil) 40 mg DAILY PO 07/11/20 09:00 08/02/20 08:34 Loperamide HCl (Imodium) 2 mg PRN Q1HR PRN PO DIARRHEA 07/10/20 16:30 Al Hydroxide/Mg Hydroxide (Mylanta Plus Xs) 20 ml PRN Q4HRS PRN PO INDIGESTION, 2ND CHOICE 07/10/20 16:30 Multi-Ingred Cream/Lotion/Oil/ Oint (Artificial Tears Eye Ointment) 1 marvel NOON OU 07/11/20 12:00 08/02/20 12:15 Oxybutynin Chloride (Ditropan) 5 mg [id number] PO 07/10/20 21:00 08/02/20 20:47 Olanzapine (ZyPREXA ZYDIS) 2.5 mg PRN Q2HRS PRN PO PSYCHOSIS 07/10/20 20:00 07/22/20 15:52 DC 07/22/20 14:21 Fluvoxamine Maleate (Luvox) 25 mg DAILY PO 07/13/20 09:00 07/14/20 09:05 DC 07/14/20 08:25 Fluvoxamine Maleate (Luvox) 50 mg DAILY PO 07/15/20 09:00 07/16/20 09:05 DC 07/16/20 08:14 Fluvoxamine Maleate (Luvox) 75 mg DAILY PO 07/17/20 09:00 08/01/20 18:48 DC 08/01/20 08:52 Divalproex Sodium (Depakote Er) 250 mg 0900 PO 07/19/20 09:00 07/20/20 16:12 DC 07/20/20 08:05 Divalproex Sodium (Depakote Er) 750 mg QHS PO 07/18/20 21:00 07/20/20 16:12 DC 07/19/20 20:59 Risperidone (RisperDAL) 2 mg BID PO 07/19/20 21:00 07/20/20 16:13 DC 07/20/20 08:06 Divalproex Sodium (Depakote Er) 500 mg 0900 PO 07/21/20 09:00 08/02/20 08:31 Divalproex Sodium (Depakote Er) 1,000 mg QHS PO 07/20/20 21:00 08/02/20 20:48 Risperidone (RisperDAL) 3 mg BID PO 07/20/20 21:00 08/02/20 20:47 Clonazepam (KlonoPIN) 1 mg QID PO 07/20/20 17:00 08/02/20 20:57 Neomycin/ Polymyxin/Bacitr/ Hydrocort (Cortisporin Ophth) 2 marvel BID OU 07/21/20 17:00 08/02/20 20:47 Quetiapine Fumarate (SEROquel) 50 mg TID PO 07/22/20 17:00 07/25/20 13:04 DC 07/25/20 12:28 Quetiapine Fumarate (SEROquel) 75 mg TID PO 07/25/20 14:00 08/02/20 20:47 Quetiapine Fumarate (SEROquel) 50 mg 1X ONCE PO 07/25/20 13:15 07/25/20 13:21 DC 07/25/20 13:24 Fluvoxamine Maleate (Luvox) 100 mg DAILY PO 08/02/20 09:00 08/02/20 08:35 Current Medications Medications (Trade) Dose Ordered Sig/Davida Route PRN Reason Start Time Stop Time Status Last Admin Dose Admin Fluvoxamine Maleate (Luvox) 100 mg DAILY PO 08/02/20 09:00 08/02/20 08:35 I have reviewed the current psychotropics carefully including drug interactions. Risk benefit ratio favors no change other than as noted in my dictated progress note. Diagnosis: Problems: (1) OCD (obsessive compulsive disorder) (2) Impulse control disorder, unspecified (3) Anxiety disorder, unspecified (4) Intellectual disability (5) Psychotic disorder BRE WYLIE MD August 02, 2020 22:07
[2020-08-03 06:17] VITALS: BP 123/85
[2020-08-03] MEDS: FERROUS SULFATE 325 MG TABLET. PO SCH ×2 (08:18→21:11)
[2020-08-03] MEDS: POTASSIUM CHLORIDE 10 MEQ TABLET.ER. PO SCH (08:18)
[2020-08-03] MEDS: MEMANTINE 10 MG TABLET. PO SCH ×2 (08:18→21:11)
[2020-08-03] MEDS: hydroCHLOROthiazide 25 MG TABLET PO SCH (08:18)
[2020-08-03] MEDS: LISINOPRIL 20 MG TABLET PO SCH (08:19)
[2020-08-03] MEDS: ASPIRIN ENTERIC COATED 81 MG TABLET.DR. PO SCH (08:19)
[2020-08-03] MEDS: metFORMIN 500 MG TABLET PO SCH (08:19)
[2020-08-03] MEDS: OXYBUTYNIN CHLORIDE 5 MG TABLET PO SCH ×3 (08:19→21:11)
[2020-08-03] MEDS: CHOLECALCIFEROL (VITAMIN D3) 1,000 UNIT TABLET PO SCH (08:19)
[2020-08-03] MEDS: risperiDONE 2 MG TABLET. PO SCH ×2 (08:20→21:11)
[2020-08-03] MEDS: QUEtiapine 25 MG TABLET. PO SCH ×3 (08:20→22:50)
[2020-08-03] MEDS: DIVALPROEX ER 500 MG TAB.ER.24H PO SCH ×2 (08:20→21:11)
[2020-08-03] MEDS: amLODIPine BESYLATE 5 MG TABLET PO SCH (08:21)
[2020-08-03] MEDS: KETOTIFEN FUMARATE 0.025% OPHT SOLUTION BOTTLE. OU SCH ×2 (08:21→21:10)
[2020-08-03] MEDS: NEOMYCIN/BACI/POLY/HC OPHTH OINTMENT 3.5GM TUBE. OU SCH ×2 (08:21→21:10)
[2020-08-03] MEDS: clonazePAM 1 MG TABLET PO SCH ×4 (08:21→21:11)
--- NOTE | 2020-08-03 10:31 | PDOC ---
Exam Note: Anthony Note: This note is a late entry for 08/02/2020 covers elements not covered in my initial note. Subjective: The patient was reviewed in the morning of 08/02/2020 for a treatment team meeting with Yaima Webb, Serina Christianson and Kamila (social work associate), Keke, activity therapy and Sharon IRWNI, discussed and reviewed the chart. He slept 7-1/2 hours previous night. Appetite is 100%. The patient remains somewhat obsessive, less so than before, anxious, constantly carrying the Bible with him saying he is praying, that his anxiety gets better. Valproic acid level is 89, therapeutic. He needs redirection in groups. Review of Systems: No CV, , pulmonary, eye, ENT system symptoms on review. Mental Status Exam: The patient is oriented to himself and situation. Speech repetitive, coherent. Abstraction fair. Computation impaired. Language function intact. Attention span short. Mood and affect remains somewhat obsessive, anxious, labile but improved. Laboratory Data: Reviewed. Impression: Psychotic disorder unspecified. Obsessive-compulsive disorder. Intellectual disability. Probable bipolar disorder unspecified. Rest unchanged. Plan: The patient is currently on Luvox 100 mg a day. We may need to increase this gradually. Maintain Depakote at current dosage, level 89 therapeutic. Maintain Klonopin at current dosage. We may consider reducing it gradually. Continue Risperdal and Seroquel. Once he is more stable, we will reduce one of the two to keep him on just one atypical antipsychotic. Assessment: Vital Signs/I&O: Vital Signs Date Time Temp Pulse Resp B/P (MAP) Pulse Ox O2 Delivery O2 Flow Rate FiO2 08/03/20 08:21 69 123/85 08/03/20 06:17 97.1 18 98 08/02/20 06:25 Room Air I & O 08/02/20 08/02/20 08/03/20 15:00 23:00 07:00 Intake Total 1080 ml 400 ml 240 ml Balance 1080 ml 400 ml 240 ml Labs: Laboratory Tests Test 08/03/20 07:39 Glucose (Fingerstick) 93 mg/dL (70-99) Current Medications: Meds: Laboratory Tests Test 08/03/20 07:39 Glucose (Fingerstick) 93 mg/dL Current Medications Medications (Trade) Dose Ordered Sig/Davida Route PRN Reason Start Time Stop Time Status Last Admin Dose Admin Acetaminophen (Tylenol) 650 mg PRN Q6HRS PRN PO MILD PAIN / TEMP > 100.3'F 07/10/20 12:30 Multi-Ingredient Ointment (Analgesic [place]) 1 marvel PRN QID PRN TP MUSCLE PAIN 07/10/20 12:30 Al Hydroxide/Mg Hydroxide (Mylanta Plus Xs) 15 ml PRN AFTMEALHC PRN PO DYSPEPSIA 07/10/20 12:30 Cancel Magnesium Hydroxide (Milk Of Magnesia) 2,400 mg PRN QHS PRN PO 2ND CHOICE CONSTIPATION 07/10/20 12:30 Albuterol Sulfate (Ventolin) 2.5 mg PRN Q4HRS PRN IH FOR ASTHMA 07/10/20 15:30 Amlodipine Besylate (Norvasc) 5 mg DAILY PO 07/11/20 09:00 08/03/20 08:21 Aspirin (Aspirin Enteric Coated) 81 mg DAILY08 PO 07/11/20 08:00 08/03/20 08:19 Atorvastatin Calcium (Lipitor) 20 mg QHS PO 07/10/20 21:00 08/02/20 20:47 Clonazepam (KlonoPIN) 2 mg TID PO 07/10/20 21:00 07/20/20 16:15 DC 07/20/20 13:10 Divalproex Sodium (Depakote Er) 250 mg TID PO 07/10/20 21:00 07/18/20 18:41 DC 07/18/20 13:44 Ferrous Sulfate (Feosol) 325 mg BID PO 07/10/20 21:00 08/03/20 08:18 Guaifenesin (Mucinex Er) 600 mg PRN Q12HR PRN PO nasal congestion 07/10/20 15:30 Hydrochlorothiazide (Hydrodiuril) 25 mg DAILYWBKFT PO 07/11/20 08:00 08/03/20 08:18 Ketotifen Fumarate (Zaditor) 1 drop BID OU 07/10/20 21:00 08/03/20 08:21 Loperamide HCl (Imodium) 4 mg PRN DAILY PRN PO FIRST OCCURANCE OF DIARRHEA 07/10/20 15:30 Memantine (Namenda) 10 mg BID PO 07/10/20 21:00 08/03/20 08:18 Metformin HCl (Glucophage) 500 mg DAILYWBKFT PO 07/11/20 08:00 08/03/20 08:19 Paroxetine HCl (Paxil) 40 mg DAILY PO 07/11/20 09:00 07/12/20 11:47 DC 07/12/20 08:10 Polyethylene Glycol (miraLAX) 17 gm PRN DAILY PRN PO 1ST CHOICE CONSTIPATION 07/10/20 15:30 Artificial Tears (Artificial Tears) 1 drop PRN Q1HR PRN OU itchy eyes 07/10/20 15:30 Potassium Chloride (Klor-Con) 10 meq DAILY08 PO 07/11/20 08:00 08/03/20 08:18 Risperidone (RisperDAL) 1 mg BID PO 07/10/20 21:00 07/19/20 11:49 DC 07/19/20 08:52 Senna/Docusate Sodium (Senna Plus) 2 tab PRN BID PRN PO 3RD CHOICE CONSTIPATION 07/10/20 15:30 Calcium Carbonate/ Glycine (Tums) 1,000 mg PRN Q4HRS PRN PO HEARTBURN / GAS, 1ST CHOICE 07/10/20 16:15 Vitamin D (Vitamin D3) 2,000 unit DAILY PO 07/11/20 09:00 08/03/20 08:19 Throat Lozenges (Cepacol Sore Throat Lozenge) 1 danna PRN Q2HR PRN PO SORE THROAT 07/10/20 16:15 Guaifenesin (Robitussin Dm) 10 ml PRN Q4HRS PRN PO COUGH 07/10/20 16:15 Lisinopril (Prinivil) 40 mg DAILY PO 07/11/20 09:00 08/03/20 08:19 Loperamide HCl (Imodium) 2 mg PRN Q1HR PRN PO DIARRHEA 07/10/20 16:30 Al Hydroxide/Mg Hydroxide (Mylanta Plus Xs) 20 ml PRN Q4HRS PRN PO INDIGESTION, 2ND CHOICE 07/10/20 16:30 Multi-Ingred Cream/Lotion/Oil/ Oint (Artificial Tears Eye Ointment) 1 marvel NOON OU 07/11/20 12:00 08/02/20 12:15 Oxybutynin Chloride (Ditropan) 5 mg [id number] PO 07/10/20 21:00 08/03/20 08:19 Olanzapine (ZyPREXA ZYDIS) 2.5 mg PRN Q2HRS PRN PO PSYCHOSIS 07/10/20 20:00 07/22/20 15:52 DC 07/22/20 14:21 Fluvoxamine Maleate (Luvox) 25 mg DAILY PO 07/13/20 09:00 07/14/20 09:05 DC 07/14/20 08:25 Fluvoxamine Maleate (Luvox) 50 mg DAILY PO 07/15/20 09:00 07/16/20 09:05 DC 07/16/20 08:14 Fluvoxamine Maleate (Luvox) 75 mg DAILY PO 07/17/20 09:00 08/01/20 18:48 DC 08/01/20 08:52 Divalproex Sodium (Depakote Er) 250 mg 0900 PO 07/19/20 09:00 07/20/20 16:12 DC 07/20/20 08:05 Divalproex Sodium (Depakote Er) 750 mg QHS PO 07/18/20 21:00 07/20/20 16:12 DC 07/19/20 20:59 Risperidone (RisperDAL) 2 mg BID PO 07/19/20 21:00 07/20/20 16:13 DC 07/20/20 08:06 Divalproex Sodium (Depakote Er) 500 mg 0900 PO 07/21/20 09:00 08/03/20 08:20 Divalproex Sodium (Depakote Er) 1,000 mg QHS PO 07/20/20 21:00 08/02/20 20:48 Risperidone (RisperDAL) 3 mg BID PO 07/20/20 21:00 08/03/20 08:20 Clonazepam (KlonoPIN) 1 mg QID PO 07/20/20 17:00 08/03/20 08:21 Neomycin/ Polymyxin/Bacitr/ Hydrocort (Cortisporin Ophth) 2 marvel BID OU 07/21/20 17:00 08/03/20 08:21 Quetiapine Fumarate (SEROquel) 50 mg TID PO 07/22/20 17:00 07/25/20 13:04 DC 07/25/20 12:28 Quetiapine Fumarate (SEROquel) 75 mg TID PO 07/25/20 14:00 08/03/20 08:20 Quetiapine Fumarate (SEROquel) 50 mg 1X ONCE PO 07/25/20 13:15 07/25/20 13:21 DC 07/25/20 13:24 Fluvoxamine Maleate (Luvox) 100 mg DAILY PO 08/02/20 09:00 08/03/20 08:18 I have reviewed the current psychotropics carefully including drug interactions. Risk benefit ratio favors no change other than as noted in my dictated progress note. Diagnosis: Problems: (1) OCD (obsessive compulsive disorder) (2) Impulse control disorder, unspecified (3) Anxiety disorder, unspecified (4) Intellectual disability (5) Psychotic disorder BRE WYLIE MD August 03, 2020 10:31
[2020-08-03] MEDS: MINERAL OIL/PETROLATUM,WHITE OPHTH OINT 3.5GM TUBE. OU SCH (12:53)
[2020-08-03 16:11] VITALS: BP 114/70
[2020-08-03] MEDS: ATORVASTATIN CALCIUM 20 MG TABLET PO SCH (21:11)
--- NOTE | 2020-08-03 21:55 | PDOC ---
Exam Note: Anthony Note: Please also refer to the separate dictated note~for this date of service dictated separately.~Patient seen individually. Discussed the patient with Nursing staff reviewed the chart.~Reviewed interim history and current functioning. Reviewed vital signs,~Labs/ Radiology~and current medications noted below. Continue current treatment with the changes noted in the dictated addendum note Assessment: Vital Signs/I&O: Vital Signs Date Time Temp Pulse Resp B/P (MAP) Pulse Ox O2 Delivery O2 Flow Rate FiO2 08/03/20 16:11 97.6 77 20 114/70 (85) 97 Room Air I & O 08/02/20 08/02/20 08/03/20 15:00 23:00 07:00 Intake Total 1080 ml 400 ml 240 ml Balance 1080 ml 400 ml 240 ml Labs: Laboratory Tests Test 08/03/20 07:39 Glucose (Fingerstick) 93 mg/dL (70-99) Current Medications: Meds: Laboratory Tests Test 08/03/20 07:39 Glucose (Fingerstick) 93 mg/dL Current Medications Medications (Trade) Dose Ordered Sig/Davida Route PRN Reason Start Time Stop Time Status Last Admin Dose Admin Acetaminophen (Tylenol) 650 mg PRN Q6HRS PRN PO MILD PAIN / TEMP > 100.3'F 07/10/20 12:30 Multi-Ingredient Ointment (Analgesic [place]) 1 marvel PRN QID PRN TP MUSCLE PAIN 07/10/20 12:30 Al Hydroxide/Mg Hydroxide (Mylanta Plus Xs) 15 ml PRN AFTMEALHC PRN PO DYSPEPSIA 07/10/20 12:30 Cancel Magnesium Hydroxide (Milk Of Magnesia) 2,400 mg PRN QHS PRN PO 2ND CHOICE CONSTIPATION 07/10/20 12:30 Albuterol Sulfate (Ventolin) 2.5 mg PRN Q4HRS PRN IH FOR ASTHMA 07/10/20 15:30 Amlodipine Besylate (Norvasc) 5 mg DAILY PO 07/11/20 09:00 08/03/20 08:21 Aspirin (Aspirin Enteric Coated) 81 mg DAILY08 PO 07/11/20 08:00 08/03/20 08:19 Atorvastatin Calcium (Lipitor) 20 mg QHS PO 07/10/20 21:00 08/03/20 21:11 Clonazepam (KlonoPIN) 2 mg TID PO 07/10/20 21:00 07/20/20 16:15 DC 07/20/20 13:10 Divalproex Sodium (Depakote Er) 250 mg TID PO 07/10/20 21:00 07/18/20 18:41 DC 07/18/20 13:44 Ferrous Sulfate (Feosol) 325 mg BID PO 07/10/20 21:00 08/03/20 21:11 Guaifenesin (Mucinex Er) 600 mg PRN Q12HR PRN PO nasal congestion 07/10/20 15:30 Hydrochlorothiazide (Hydrodiuril) 25 mg DAILYWBKFT PO 07/11/20 08:00 08/03/20 08:18 Ketotifen Fumarate (Zaditor) 1 drop BID OU 07/10/20 21:00 08/03/20 21:10 Loperamide HCl (Imodium) 4 mg PRN DAILY PRN PO FIRST OCCURANCE OF DIARRHEA 07/10/20 15:30 Memantine (Namenda) 10 mg BID PO 07/10/20 21:00 08/03/20 21:11 Metformin HCl (Glucophage) 500 mg DAILYWBKFT PO 07/11/20 08:00 08/03/20 08:19 Paroxetine HCl (Paxil) 40 mg DAILY PO 07/11/20 09:00 07/12/20 11:47 DC 07/12/20 08:10 Polyethylene Glycol (miraLAX) 17 gm PRN DAILY PRN PO 1ST CHOICE CONSTIPATION 07/10/20 15:30 Artificial Tears (Artificial Tears) 1 drop PRN Q1HR PRN OU itchy eyes 07/10/20 15:30 Potassium Chloride (Klor-Con) 10 meq DAILY08 PO 07/11/20 08:00 08/03/20 08:18 Risperidone (RisperDAL) 1 mg BID PO 07/10/20 21:00 07/19/20 11:49 DC 07/19/20 08:52 Senna/Docusate Sodium (Senna Plus) 2 tab PRN BID PRN PO 3RD CHOICE CONSTIPATION 07/10/20 15:30 Calcium Carbonate/ Glycine (Tums) 1,000 mg PRN Q4HRS PRN PO HEARTBURN / GAS, 1ST CHOICE 07/10/20 16:15 Vitamin D (Vitamin D3) 2,000 unit DAILY PO 07/11/20 09:00 08/03/20 08:19 Throat Lozenges (Cepacol Sore Throat Lozenge) 1 danna PRN Q2HR PRN PO SORE THROAT 07/10/20 16:15 Guaifenesin (Robitussin Dm) 10 ml PRN Q4HRS PRN PO COUGH 07/10/20 16:15 Lisinopril (Prinivil) 40 mg DAILY PO 07/11/20 09:00 08/03/20 08:19 Loperamide HCl (Imodium) 2 mg PRN Q1HR PRN PO DIARRHEA 07/10/20 16:30 Al Hydroxide/Mg Hydroxide (Mylanta Plus Xs) 20 ml PRN Q4HRS PRN PO INDIGESTION, 2ND CHOICE 07/10/20 16:30 Multi-Ingred Cream/Lotion/Oil/ Oint (Artificial Tears Eye Ointment) 1 marvel NOON OU 07/11/20 12:00 08/03/20 12:53 Oxybutynin Chloride (Ditropan) 5 mg [id number] PO 07/10/20 21:00 08/03/20 21:11 Olanzapine (ZyPREXA ZYDIS) 2.5 mg PRN Q2HRS PRN PO PSYCHOSIS 07/10/20 20:00 07/22/20 15:52 DC 07/22/20 14:21 Fluvoxamine Maleate (Luvox) 25 mg DAILY PO 07/13/20 09:00 07/14/20 09:05 DC 07/14/20 08:25 Fluvoxamine Maleate (Luvox) 50 mg DAILY PO 07/15/20 09:00 07/16/20 09:05 DC 07/16/20 08:14 Fluvoxamine Maleate (Luvox) 75 mg DAILY PO 07/17/20 09:00 08/01/20 18:48 DC 08/01/20 08:52 Divalproex Sodium (Depakote Er) 250 mg 0900 PO 07/19/20 09:00 07/20/20 16:12 DC 07/20/20 08:05 Divalproex Sodium (Depakote Er) 750 mg QHS PO 07/18/20 21:00 07/20/20 16:12 DC 07/19/20 20:59 Risperidone (RisperDAL) 2 mg BID PO 07/19/20 21:00 07/20/20 16:13 DC 07/20/20 08:06 Divalproex Sodium (Depakote Er) 500 mg 0900 PO 07/21/20 09:00 08/03/20 08:20 Divalproex Sodium (Depakote Er) 1,000 mg QHS PO 07/20/20 21:00 08/03/20 21:11 Risperidone (RisperDAL) 3 mg BID PO 07/20/20 21:00 08/03/20 21:11 Clonazepam (KlonoPIN) 1 mg QID PO 07/20/20 17:00 08/03/20 21:11 Neomycin/ Polymyxin/Bacitr/ Hydrocort (Cortisporin Ophth) 2 marvel BID OU 07/21/20 17:00 08/03/20 21:10 Quetiapine Fumarate (SEROquel) 50 mg TID PO 07/22/20 17:00 07/25/20 13:04 DC 07/25/20 12:28 Quetiapine Fumarate (SEROquel) 75 mg TID PO 07/25/20 14:00 08/03/20 12:54 Quetiapine Fumarate (SEROquel) 50 mg 1X ONCE PO 07/25/20 13:15 07/25/20 13:21 DC 07/25/20 13:24 Fluvoxamine Maleate (Luvox) 100 mg DAILY PO 08/02/20 09:00 08/05/20 08:59 08/03/20 08:18 Fluvoxamine Maleate (Luvox) 150 mg DAILY PO 08/05/20 09:00 I have reviewed the current psychotropics carefully including drug interactions. Risk benefit ratio favors no change other than as noted in my dictated progress note. Diagnosis: Problems: (1) OCD (obsessive compulsive disorder) (2) Impulse control disorder, unspecified (3) Anxiety disorder, unspecified (4) Intellectual disability (5) Psychotic disorder BRE WYLIE MD August 03, 2020 21:55
[2020-08-04 06:19] VITALS: BP 119/73
[2020-08-04] MEDS: NEOMYCIN/BACI/POLY/HC OPHTH OINTMENT 3.5GM TUBE. OU SCH ×2 (08:38→21:40)
[2020-08-04] MEDS: KETOTIFEN FUMARATE 0.025% OPHT SOLUTION BOTTLE. OU SCH ×2 (08:38→21:40)
[2020-08-04] MEDS: QUEtiapine 25 MG TABLET. PO SCH ×3 (08:39→21:39)
[2020-08-04] MEDS: FERROUS SULFATE 325 MG TABLET. PO SCH ×2 (08:39→21:39)
[2020-08-04] MEDS: metFORMIN 500 MG TABLET PO SCH (08:39)
[2020-08-04] MEDS: LISINOPRIL 20 MG TABLET PO SCH (08:40)
[2020-08-04] MEDS: ASPIRIN ENTERIC COATED 81 MG TABLET.DR. PO SCH (08:40)
[2020-08-04] MEDS: OXYBUTYNIN CHLORIDE 5 MG TABLET PO SCH ×3 (08:40→21:39)
[2020-08-04] MEDS: CHOLECALCIFEROL (VITAMIN D3) 1,000 UNIT TABLET PO SCH (08:41)
[2020-08-04] MEDS: clonazePAM 1 MG TABLET PO SCH ×4 (08:41→21:39)
[2020-08-04] MEDS: DIVALPROEX ER 500 MG TAB.ER.24H PO SCH ×2 (08:41→21:39)
[2020-08-04] MEDS: amLODIPine BESYLATE 5 MG TABLET PO SCH (08:41)
[2020-08-04] MEDS: hydroCHLOROthiazide 25 MG TABLET PO SCH (08:41)
[2020-08-04] MEDS: MEMANTINE 10 MG TABLET. PO SCH ×2 (08:41→21:39)
[2020-08-04] MEDS: POTASSIUM CHLORIDE 10 MEQ TABLET.ER. PO SCH (08:42)
[2020-08-04] MEDS: risperiDONE 2 MG TABLET. PO SCH ×2 (08:43→21:38)
[2020-08-04] MEDS: MINERAL OIL/PETROLATUM,WHITE OPHTH OINT 3.5GM TUBE. OU SCH (12:11)
[2020-08-04 15:53] VITALS: BP 93/60
[2020-08-04] MEDS: ATORVASTATIN CALCIUM 20 MG TABLET PO SCH (21:39)
[2020-08-04 21:40] VITALS: BP 143/79
--- NOTE | 2020-08-04 22:21 | PDOC ---
Exam Note: Anthony Note: Please also refer to the separate dictated note~for this date of service dictated separately.~Patient seen individually. Discussed the patient with Nursing staff reviewed the chart.~Reviewed interim history and current functioning. Reviewed vital signs,~Labs/ Radiology~and current medications noted below. Continue current treatment with the changes noted in the dictated addendum note Assessment: Vital Signs/I&O: Vital Signs Date Time Temp Pulse Resp B/P (MAP) Pulse Ox O2 Delivery O2 Flow Rate FiO2 08/04/20 15:53 97.7 63 16 93/60 (71) 98 08/04/20 06:19 Room Air I & O 08/03/20 08/03/20 08/04/20 15:00 23:00 07:00 Intake Total 840 ml 240 ml Balance 840 ml 240 ml Labs: Laboratory Tests Test 08/04/20 08:07 Glucose (Fingerstick) 81 mg/dL (70-99) Current Medications: Meds: Laboratory Tests Test 08/04/20 08:07 Glucose (Fingerstick) 81 mg/dL Current Medications Medications (Trade) Dose Ordered Sig/Davida Route PRN Reason Start Time Stop Time Status Last Admin Dose Admin Acetaminophen (Tylenol) 650 mg PRN Q6HRS PRN PO MILD PAIN / TEMP > 100.3'F 07/10/20 12:30 Multi-Ingredient Ointment (Analgesic [place]) 1 marvel PRN QID PRN TP MUSCLE PAIN 07/10/20 12:30 Al Hydroxide/Mg Hydroxide (Mylanta Plus Xs) 15 ml PRN AFTMEALHC PRN PO DYSPEPSIA 07/10/20 12:30 Cancel Magnesium Hydroxide (Milk Of Magnesia) 2,400 mg PRN QHS PRN PO 2ND CHOICE CONSTIPATION 07/10/20 12:30 Albuterol Sulfate (Ventolin) 2.5 mg PRN Q4HRS PRN IH FOR ASTHMA 07/10/20 15:30 Amlodipine Besylate (Norvasc) 5 mg DAILY PO 07/11/20 09:00 08/04/20 08:41 Aspirin (Aspirin Enteric Coated) 81 mg DAILY08 PO 07/11/20 08:00 08/04/20 08:40 Atorvastatin Calcium (Lipitor) 20 mg QHS PO 07/10/20 21:00 08/04/20 21:39 Clonazepam (KlonoPIN) 2 mg TID PO 07/10/20 21:00 07/20/20 16:15 DC 07/20/20 13:10 Divalproex Sodium (Depakote Er) 250 mg TID PO 07/10/20 21:00 07/18/20 18:41 DC 07/18/20 13:44 Ferrous Sulfate (Feosol) 325 mg BID PO 07/10/20 21:00 08/04/20 21:39 Guaifenesin (Mucinex Er) 600 mg PRN Q12HR PRN PO nasal congestion 07/10/20 15:30 Hydrochlorothiazide (Hydrodiuril) 25 mg DAILYWBKFT PO 07/11/20 08:00 08/04/20 08:41 Ketotifen Fumarate (Zaditor) 1 drop BID OU 07/10/20 21:00 08/04/20 21:40 Loperamide HCl (Imodium) 4 mg PRN DAILY PRN PO FIRST OCCURANCE OF DIARRHEA 07/10/20 15:30 Memantine (Namenda) 10 mg BID PO 07/10/20 21:00 08/04/20 21:39 Metformin HCl (Glucophage) 500 mg DAILYWBKFT PO 07/11/20 08:00 08/04/20 08:39 Paroxetine HCl (Paxil) 40 mg DAILY PO 07/11/20 09:00 07/12/20 11:47 DC 07/12/20 08:10 Polyethylene Glycol (miraLAX) 17 gm PRN DAILY PRN PO 1ST CHOICE CONSTIPATION 07/10/20 15:30 Artificial Tears (Artificial Tears) 1 drop PRN Q1HR PRN OU itchy eyes 07/10/20 15:30 Potassium Chloride (Klor-Con) 10 meq DAILY08 PO 07/11/20 08:00 08/04/20 08:42 Risperidone (RisperDAL) 1 mg BID PO 07/10/20 21:00 07/19/20 11:49 DC 07/19/20 08:52 Senna/Docusate Sodium (Senna Plus) 2 tab PRN BID PRN PO 3RD CHOICE CONSTIPATION 07/10/20 15:30 Calcium Carbonate/ Glycine (Tums) 1,000 mg PRN Q4HRS PRN PO HEARTBURN / GAS, 1ST CHOICE 07/10/20 16:15 Vitamin D (Vitamin D3) 2,000 unit DAILY PO 07/11/20 09:00 08/04/20 08:41 Throat Lozenges (Cepacol Sore Throat Lozenge) 1 danna PRN Q2HR PRN PO SORE THROAT 07/10/20 16:15 Guaifenesin (Robitussin Dm) 10 ml PRN Q4HRS PRN PO COUGH 07/10/20 16:15 Lisinopril (Prinivil) 40 mg DAILY PO 07/11/20 09:00 08/04/20 08:40 Loperamide HCl (Imodium) 2 mg PRN Q1HR PRN PO DIARRHEA 07/10/20 16:30 Al Hydroxide/Mg Hydroxide (Mylanta Plus Xs) 20 ml PRN Q4HRS PRN PO INDIGESTION, 2ND CHOICE 07/10/20 16:30 Multi-Ingred Cream/Lotion/Oil/ Oint (Artificial Tears Eye Ointment) 1 marvel NOON OU 07/11/20 12:00 08/04/20 12:11 Oxybutynin Chloride (Ditropan) 5 mg [id number] PO 07/10/20 21:00 08/04/20 21:39 Olanzapine (ZyPREXA ZYDIS) 2.5 mg PRN Q2HRS PRN PO PSYCHOSIS 07/10/20 20:00 07/22/20 15:52 DC 07/22/20 14:21 Fluvoxamine Maleate (Luvox) 25 mg DAILY PO 07/13/20 09:00 07/14/20 09:05 DC 07/14/20 08:25 Fluvoxamine Maleate (Luvox) 50 mg DAILY PO 07/15/20 09:00 07/16/20 09:05 DC 07/16/20 08:14 Fluvoxamine Maleate (Luvox) 75 mg DAILY PO 07/17/20 09:00 08/01/20 18:48 DC 08/01/20 08:52 Divalproex Sodium (Depakote Er) 250 mg 0900 PO 07/19/20 09:00 07/20/20 16:12 DC 07/20/20 08:05 Divalproex Sodium (Depakote Er) 750 mg QHS PO 07/18/20 21:00 07/20/20 16:12 DC 07/19/20 20:59 Risperidone (RisperDAL) 2 mg BID PO 07/19/20 21:00 07/20/20 16:13 DC 07/20/20 08:06 Divalproex Sodium (Depakote Er) 500 mg 0900 PO 07/21/20 09:00 08/04/20 08:41 Divalproex Sodium (Depakote Er) 1,000 mg QHS PO 07/20/20 21:00 08/04/20 21:39 Risperidone (RisperDAL) 3 mg BID PO 07/20/20 21:00 08/04/20 21:38 Clonazepam (KlonoPIN) 1 mg QID PO 07/20/20 17:00 08/04/20 21:39 Neomycin/ Polymyxin/Bacitr/ Hydrocort (Cortisporin Ophth) 2 marvel BID OU 07/21/20 17:00 08/04/20 21:40 Quetiapine Fumarate (SEROquel) 50 mg TID PO 07/22/20 17:00 07/25/20 13:04 DC 07/25/20 12:28 Quetiapine Fumarate (SEROquel) 75 mg TID PO 07/25/20 14:00 08/04/20 21:39 Quetiapine Fumarate (SEROquel) 50 mg 1X ONCE PO 07/25/20 13:15 07/25/20 13:21 DC 07/25/20 13:24 Fluvoxamine Maleate (Luvox) 100 mg DAILY PO 08/02/20 09:00 08/05/20 08:59 08/04/20 08:40 Fluvoxamine Maleate (Luvox) 150 mg DAILY PO 08/05/20 09:00 I have reviewed the current psychotropics carefully including drug interactions. Risk benefit ratio favors no change other than as noted in my dictated progress note. Diagnosis: Problems: (1) OCD (obsessive compulsive disorder) (2) Impulse control disorder, unspecified (3) Anxiety disorder, unspecified (4) Intellectual disability (5) Psychotic disorder BRE WYLIE MD August 04, 2020 22:21
[2020-08-05 05:38] VITALS: BP 103/70
[2020-08-05] MEDS: CHOLECALCIFEROL (VITAMIN D3) 1,000 UNIT TABLET PO SCH (08:57)
[2020-08-05] MEDS: MEMANTINE 10 MG TABLET. PO SCH ×2 (08:57→21:53)
[2020-08-05] MEDS: ASPIRIN ENTERIC COATED 81 MG TABLET.DR. PO SCH (08:57)
[2020-08-05] MEDS: risperiDONE 2 MG TABLET. PO SCH ×2 (08:58→21:53)
[2020-08-05] MEDS: clonazePAM 1 MG TABLET PO SCH ×4 (08:59→21:54)
[2020-08-05] MEDS: LISINOPRIL 20 MG TABLET PO SCH (08:59)
[2020-08-05] MEDS: QUEtiapine 25 MG TABLET. PO SCH ×3 (08:59→21:52)
[2020-08-05] MEDS: OXYBUTYNIN CHLORIDE 5 MG TABLET PO SCH ×3 (08:59→21:53)
[2020-08-05] MEDS: FERROUS SULFATE 325 MG TABLET. PO SCH ×2 (08:59→21:53)
[2020-08-05] MEDS: amLODIPine BESYLATE 5 MG TABLET PO SCH (09:00)
[2020-08-05] MEDS: hydroCHLOROthiazide 25 MG TABLET PO SCH (09:00)
[2020-08-05] MEDS: POTASSIUM CHLORIDE 10 MEQ TABLET.ER. PO SCH (09:00)
[2020-08-05] MEDS: metFORMIN 500 MG TABLET PO SCH (09:00)
[2020-08-05] MEDS: DIVALPROEX ER 500 MG TAB.ER.24H PO SCH ×2 (09:00→21:53)
[2020-08-05] MEDS: NEOMYCIN/BACI/POLY/HC OPHTH OINTMENT 3.5GM TUBE. OU SCH ×2 (09:01→12:50)
[2020-08-05] MEDS: KETOTIFEN FUMARATE 0.025% OPHT SOLUTION BOTTLE. OU SCH ×2 (09:01→21:00)
--- NOTE | 2020-08-05 09:06 | PDOC ---
Exam Note: Anthony Note: This note is a late entry for 08/03/2020 covers elements not covered in my initial note. Subjective: The patient was seen individually in the evening of 08/03/2020 with Henry IRWIN, discussed and reviewed the chart. He slept 6-1/2 hours previous night. He has been agitated x1, still obsessive-compulsive much improved. He was talking at length as I met with him. He was praying for his anxiety to get better and wanted me to confirm that this was true. I did discuss with him that there was a lot of power in prayers. Review of Systems: No CV, , pulmonary, eye, ENT system symptoms on review. Mental Status Exam: The patient is oriented to himself and situation. He was following me around the unit. Insight, judgment, recent memory is impaired. Mood and affect somewhat labile, anxious repetitive. Speech repetitive, coherent. Abstraction fair. Computation impaired. Language function intact. Attention span short. Mood and affect still obsessive. Laboratory Data: Reviewed. Impression: Psychotic disorder unspecified. Obsessive-compulsive disorder. Intellectual disability. Probable bipolar disorder unspecified. Rest unchanged. Plan: Increase Luvox to 125 mg a day after he has been on 100 mg for 3 days. Rest unchanged for now. Assessment: Vital Signs/I&O: Vital Signs Date Time Temp Pulse Resp B/P (MAP) Pulse Ox O2 Delivery O2 Flow Rate FiO2 08/05/20 09:00 60 103/70 08/05/20 05:38 96.7 18 94 08/04/20 21:40 Room Air I & O 08/04/20 08/04/20 08/05/20 15:00 23:00 07:00 Intake Total 950 ml 720 ml Balance 950 ml 720 ml Labs: Laboratory Tests Test 08/05/20 07:29 Glucose (Fingerstick) 106 mg/dL (70-99) H Current Medications: Meds: Laboratory Tests Test 08/05/20 07:29 Glucose (Fingerstick) 106 mg/dL Current Medications Medications (Trade) Dose Ordered Sig/Davida Route PRN Reason Start Time Stop Time Status Last Admin Dose Admin Acetaminophen (Tylenol) 650 mg PRN Q6HRS PRN PO MILD PAIN / TEMP > 100.3'F 07/10/20 12:30 Multi-Ingredient Ointment (Analgesic [place]) 1 marvel PRN QID PRN TP MUSCLE PAIN 07/10/20 12:30 Al Hydroxide/Mg Hydroxide (Mylanta Plus Xs) 15 ml PRN AFTMEALHC PRN PO DYSPEPSIA 07/10/20 12:30 Cancel Magnesium Hydroxide (Milk Of Magnesia) 2,400 mg PRN QHS PRN PO 2ND CHOICE CONSTIPATION 07/10/20 12:30 Albuterol Sulfate (Ventolin) 2.5 mg PRN Q4HRS PRN IH FOR ASTHMA 07/10/20 15:30 Amlodipine Besylate (Norvasc) 5 mg DAILY PO 07/11/20 09:00 08/05/20 09:00 Aspirin (Aspirin Enteric Coated) 81 mg DAILY08 PO 07/11/20 08:00 08/05/20 08:57 Atorvastatin Calcium (Lipitor) 20 mg QHS PO 07/10/20 21:00 08/04/20 21:39 Clonazepam (KlonoPIN) 2 mg TID PO 07/10/20 21:00 07/20/20 16:15 DC 07/20/20 13:10 Divalproex Sodium (Depakote Er) 250 mg TID PO 07/10/20 21:00 07/18/20 18:41 DC 07/18/20 13:44 Ferrous Sulfate (Feosol) 325 mg BID PO 07/10/20 21:00 08/05/20 08:59 Guaifenesin (Mucinex Er) 600 mg PRN Q12HR PRN PO nasal congestion 07/10/20 15:30 Hydrochlorothiazide (Hydrodiuril) 25 mg DAILYWBKFT PO 07/11/20 08:00 08/05/20 09:00 Ketotifen Fumarate (Zaditor) 1 drop BID OU 07/10/20 21:00 08/05/20 09:01 Loperamide HCl (Imodium) 4 mg PRN DAILY PRN PO FIRST OCCURANCE OF DIARRHEA 07/10/20 15:30 Memantine (Namenda) 10 mg BID PO 07/10/20 21:00 08/05/20 08:57 Metformin HCl (Glucophage) 500 mg DAILYWBKFT PO 07/11/20 08:00 08/05/20 09:00 Paroxetine HCl (Paxil) 40 mg DAILY PO 07/11/20 09:00 07/12/20 11:47 DC 07/12/20 08:10 Polyethylene Glycol (miraLAX) 17 gm PRN DAILY PRN PO 1ST CHOICE CONSTIPATION 07/10/20 15:30 Artificial Tears (Artificial Tears) 1 drop PRN Q1HR PRN OU itchy eyes 07/10/20 15:30 Potassium Chloride (Klor-Con) 10 meq DAILY08 PO 07/11/20 08:00 08/05/20 09:00 Risperidone (RisperDAL) 1 mg BID PO 07/10/20 21:00 07/19/20 11:49 DC 07/19/20 08:52 Senna/Docusate Sodium (Senna Plus) 2 tab PRN BID PRN PO 3RD CHOICE CONSTIPATION 07/10/20 15:30 Calcium Carbonate/ Glycine (Tums) 1,000 mg PRN Q4HRS PRN PO HEARTBURN / GAS, 1ST CHOICE 07/10/20 16:15 Vitamin D (Vitamin D3) 2,000 unit DAILY PO 07/11/20 09:00 08/05/20 08:57 Throat Lozenges (Cepacol Sore Throat Lozenge) 1 danna PRN Q2HR PRN PO SORE THROAT 07/10/20 16:15 Guaifenesin (Robitussin Dm) 10 ml PRN Q4HRS PRN PO COUGH 07/10/20 16:15 Lisinopril (Prinivil) 40 mg DAILY PO 07/11/20 09:00 08/05/20 08:59 Loperamide HCl (Imodium) 2 mg PRN Q1HR PRN PO DIARRHEA 07/10/20 16:30 Al Hydroxide/Mg Hydroxide (Mylanta Plus Xs) 20 ml PRN Q4HRS PRN PO INDIGESTION, 2ND CHOICE 07/10/20 16:30 Multi-Ingred Cream/Lotion/Oil/ Oint (Artificial Tears Eye Ointment) 1 marvel NOON OU 07/11/20 12:00 08/04/20 12:11 Oxybutynin Chloride (Ditropan) 5 mg [id number] PO 07/10/20 21:00 08/05/20 08:59 Olanzapine (ZyPREXA ZYDIS) 2.5 mg PRN Q2HRS PRN PO PSYCHOSIS 07/10/20 20:00 07/22/20 15:52 DC 07/22/20 14:21 Fluvoxamine Maleate (Luvox) 25 mg DAILY PO 07/13/20 09:00 07/14/20 09:05 DC 07/14/20 08:25 Fluvoxamine Maleate (Luvox) 50 mg DAILY PO 07/15/20 09:00 07/16/20 09:05 DC 07/16/20 08:14 Fluvoxamine Maleate (Luvox) 75 mg DAILY PO 07/17/20 09:00 08/01/20 18:48 DC 08/01/20 08:52 Divalproex Sodium (Depakote Er) 250 mg 0900 PO 07/19/20 09:00 07/20/20 16:12 DC 07/20/20 08:05 Divalproex Sodium (Depakote Er) 750 mg QHS PO 07/18/20 21:00 07/20/20 16:12 DC 07/19/20 20:59 Risperidone (RisperDAL) 2 mg BID PO 07/19/20 21:00 07/20/20 16:13 DC 07/20/20 08:06 Divalproex Sodium (Depakote Er) 500 mg 0900 PO 07/21/20 09:00 08/05/20 09:00 Divalproex Sodium (Depakote Er) 1,000 mg QHS PO 07/20/20 21:00 08/04/20 21:39 Risperidone (RisperDAL) 3 mg BID PO 07/20/20 21:00 08/05/20 08:58 Clonazepam (KlonoPIN) 1 mg QID PO 07/20/20 17:00 08/05/20 08:59 Neomycin/ Polymyxin/Bacitr/ Hydrocort (Cortisporin Ophth) 2 marvel BID OU 07/21/20 17:00 08/05/20 09:01 Quetiapine Fumarate (SEROquel) 50 mg TID PO 07/22/20 17:00 07/25/20 13:04 DC 07/25/20 12:28 Quetiapine Fumarate (SEROquel) 75 mg TID PO 07/25/20 14:00 08/05/20 08:59 Quetiapine Fumarate (SEROquel) 50 mg 1X ONCE PO 07/25/20 13:15 07/25/20 13:21 DC 07/25/20 13:24 Fluvoxamine Maleate (Luvox) 100 mg DAILY PO 08/02/20 09:00 08/05/20 08:59 DC 08/04/20 08:40 Fluvoxamine Maleate (Luvox) 150 mg DAILY PO 08/05/20 09:00 08/05/20 08:57 Current Medications Medications (Trade) Dose Ordered Sig/Davida Route PRN Reason Start Time Stop Time Status Last Admin Dose Admin Fluvoxamine Maleate (Luvox) 150 mg DAILY PO 08/05/20 09:00 08/05/20 08:57 I have reviewed the current psychotropics carefully including drug interactions. Risk benefit ratio favors no change other than as noted in my dictated progress note. Diagnosis: Problems: (1) OCD (obsessive compulsive disorder) (2) Impulse control disorder, unspecified (3) Anxiety disorder, unspecified (4) Intellectual disability (5) Psychotic disorder BRE WYLIE MD August 05, 2020 09:06
--- NOTE | 2020-08-05 09:30 | PDOC ---
Exam Note: Anthony Note: This note is a late entry for 08/04/2020 covers elements not covered in my initial note. Subjective: The patient was seen individually in the evening of 08/04/2020 with Stephanie IRWIN, discussed and reviewed the chart. He slept 7 hours previous night. Seroquel was held since he was sedated. Last evening he was in the dayroom. Review of Systems: No CV, , pulmonary, eye, ENT system symptoms on review. Mental Status Exam: The patient is oriented to himself and situation. He does complain of anxiety. Speech repetitive, coherent. Abstraction fair. Computation impaired. Language function intact. Attention span short. Mood and affect remains somewhat obsessive, anxious. Laboratory Data: Reviewed. Impression: Psychotic disorder unspecified. Obsessive-compulsive disorder. Intellectual disability. Probable bipolar disorder unspecified. Rest unchanged. Plan: No change from initial note. Assessment: Vital Signs/I&O: Vital Signs Date Time Temp Pulse Resp B/P (MAP) Pulse Ox O2 Delivery O2 Flow Rate FiO2 08/05/20 09:00 60 103/70 08/05/20 05:38 96.7 18 94 08/04/20 21:40 Room Air I & O 08/04/20 08/04/20 08/05/20 15:00 23:00 07:00 Intake Total 950 ml 720 ml Balance 950 ml 720 ml Labs: Laboratory Tests Test 08/05/20 07:29 Glucose (Fingerstick) 106 mg/dL (70-99) H Current Medications: Meds: Laboratory Tests Test 08/05/20 07:29 Glucose (Fingerstick) 106 mg/dL Current Medications Medications (Trade) Dose Ordered Sig/Davida Route PRN Reason Start Time Stop Time Status Last Admin Dose Admin Acetaminophen (Tylenol) 650 mg PRN Q6HRS PRN PO MILD PAIN / TEMP > 100.3'F 07/10/20 12:30 Multi-Ingredient Ointment (Analgesic [place]) 1 marvel PRN QID PRN TP MUSCLE PAIN 07/10/20 12:30 Al Hydroxide/Mg Hydroxide (Mylanta Plus Xs) 15 ml PRN AFTMEALHC PRN PO DYSPEPSIA 07/10/20 12:30 Cancel Magnesium Hydroxide (Milk Of Magnesia) 2,400 mg PRN QHS PRN PO 2ND CHOICE CONSTIPATION 07/10/20 12:30 Albuterol Sulfate (Ventolin) 2.5 mg PRN Q4HRS PRN IH FOR ASTHMA 07/10/20 15:30 Amlodipine Besylate (Norvasc) 5 mg DAILY PO 07/11/20 09:00 08/05/20 09:00 Aspirin (Aspirin Enteric Coated) 81 mg DAILY08 PO 07/11/20 08:00 08/05/20 08:57 Atorvastatin Calcium (Lipitor) 20 mg QHS PO 07/10/20 21:00 08/04/20 21:39 Clonazepam (KlonoPIN) 2 mg TID PO 07/10/20 21:00 07/20/20 16:15 DC 07/20/20 13:10 Divalproex Sodium (Depakote Er) 250 mg TID PO 07/10/20 21:00 07/18/20 18:41 DC 07/18/20 13:44 Ferrous Sulfate (Feosol) 325 mg BID PO 07/10/20 21:00 08/05/20 08:59 Guaifenesin (Mucinex Er) 600 mg PRN Q12HR PRN PO nasal congestion 07/10/20 15:30 Hydrochlorothiazide (Hydrodiuril) 25 mg DAILYWBKFT PO 07/11/20 08:00 08/05/20 09:00 Ketotifen Fumarate (Zaditor) 1 drop BID OU 07/10/20 21:00 08/05/20 09:01 Loperamide HCl (Imodium) 4 mg PRN DAILY PRN PO FIRST OCCURANCE OF DIARRHEA 07/10/20 15:30 Memantine (Namenda) 10 mg BID PO 07/10/20 21:00 08/05/20 08:57 Metformin HCl (Glucophage) 500 mg DAILYWBKFT PO 07/11/20 08:00 08/05/20 09:00 Paroxetine HCl (Paxil) 40 mg DAILY PO 07/11/20 09:00 07/12/20 11:47 DC 07/12/20 08:10 Polyethylene Glycol (miraLAX) 17 gm PRN DAILY PRN PO 1ST CHOICE CONSTIPATION 07/10/20 15:30 Artificial Tears (Artificial Tears) 1 drop PRN Q1HR PRN OU itchy eyes 07/10/20 15:30 Potassium Chloride (Klor-Con) 10 meq DAILY08 PO 07/11/20 08:00 08/05/20 09:00 Risperidone (RisperDAL) 1 mg BID PO 07/10/20 21:00 07/19/20 11:49 DC 07/19/20 08:52 Senna/Docusate Sodium (Senna Plus) 2 tab PRN BID PRN PO 3RD CHOICE CONSTIPATION 07/10/20 15:30 Calcium Carbonate/ Glycine (Tums) 1,000 mg PRN Q4HRS PRN PO HEARTBURN / GAS, 1ST CHOICE 07/10/20 16:15 Vitamin D (Vitamin D3) 2,000 unit DAILY PO 07/11/20 09:00 08/05/20 08:57 Throat Lozenges (Cepacol Sore Throat Lozenge) 1 danna PRN Q2HR PRN PO SORE THROAT 07/10/20 16:15 Guaifenesin (Robitussin Dm) 10 ml PRN Q4HRS PRN PO COUGH 07/10/20 16:15 Lisinopril (Prinivil) 40 mg DAILY PO 07/11/20 09:00 08/05/20 08:59 Loperamide HCl (Imodium) 2 mg PRN Q1HR PRN PO DIARRHEA 07/10/20 16:30 Al Hydroxide/Mg Hydroxide (Mylanta Plus Xs) 20 ml PRN Q4HRS PRN PO INDIGESTION, 2ND CHOICE 07/10/20 16:30 Multi-Ingred Cream/Lotion/Oil/ Oint (Artificial Tears Eye Ointment) 1 marvel NOON OU 07/11/20 12:00 08/04/20 12:11 Oxybutynin Chloride (Ditropan) 5 mg [id number] PO 07/10/20 21:00 08/05/20 08:59 Olanzapine (ZyPREXA ZYDIS) 2.5 mg PRN Q2HRS PRN PO PSYCHOSIS 07/10/20 20:00 07/22/20 15:52 DC 07/22/20 14:21 Fluvoxamine Maleate (Luvox) 25 mg DAILY PO 07/13/20 09:00 07/14/20 09:05 DC 07/14/20 08:25 Fluvoxamine Maleate (Luvox) 50 mg DAILY PO 07/15/20 09:00 07/16/20 09:05 DC 07/16/20 08:14 Fluvoxamine Maleate (Luvox) 75 mg DAILY PO 07/17/20 09:00 08/01/20 18:48 DC 08/01/20 08:52 Divalproex Sodium (Depakote Er) 250 mg 0900 PO 07/19/20 09:00 07/20/20 16:12 DC 07/20/20 08:05 Divalproex Sodium (Depakote Er) 750 mg QHS PO 07/18/20 21:00 07/20/20 16:12 DC 07/19/20 20:59 Risperidone (RisperDAL) 2 mg BID PO 07/19/20 21:00 07/20/20 16:13 DC 07/20/20 08:06 Divalproex Sodium (Depakote Er) 500 mg 0900 PO 07/21/20 09:00 08/05/20 09:00 Divalproex Sodium (Depakote Er) 1,000 mg QHS PO 07/20/20 21:00 08/04/20 21:39 Risperidone (RisperDAL) 3 mg BID PO 07/20/20 21:00 08/05/20 08:58 Clonazepam (KlonoPIN) 1 mg QID PO 07/20/20 17:00 08/05/20 08:59 Neomycin/ Polymyxin/Bacitr/ Hydrocort (Cortisporin Ophth) 2 marvel BID OU 07/21/20 17:00 08/05/20 09:01 Quetiapine Fumarate (SEROquel) 50 mg TID PO 07/22/20 17:00 07/25/20 13:04 DC 07/25/20 12:28 Quetiapine Fumarate (SEROquel) 75 mg TID PO 07/25/20 14:00 08/05/20 08:59 Quetiapine Fumarate (SEROquel) 50 mg 1X ONCE PO 07/25/20 13:15 07/25/20 13:21 DC 07/25/20 13:24 Fluvoxamine Maleate (Luvox) 100 mg DAILY PO 08/02/20 09:00 08/05/20 08:59 DC 08/04/20 08:40 Fluvoxamine Maleate (Luvox) 150 mg DAILY PO 08/05/20 09:00 08/05/20 08:57 Current Medications Medications (Trade) Dose Ordered Sig/Davida Route PRN Reason Start Time Stop Time Status Last Admin Dose Admin Fluvoxamine Maleate (Luvox) 150 mg DAILY PO 08/05/20 09:00 08/05/20 08:57 I have reviewed the current psychotropics carefully including drug interactions. Risk benefit ratio favors no change other than as noted in my dictated progress note. Diagnosis: Problems: (1) OCD (obsessive compulsive disorder) (2) Impulse control disorder, unspecified (3) Anxiety disorder, unspecified (4) Intellectual disability (5) Psychotic disorder BRE WYLIE MD August 05, 2020 09:30
[2020-08-05] MEDS: MINERAL OIL/PETROLATUM,WHITE OPHTH OINT 3.5GM TUBE. OU SCH (14:09)
[2020-08-05 15:47] VITALS: BP 96/66
[2020-08-05] MEDS: ATORVASTATIN CALCIUM 20 MG TABLET PO SCH (21:53)
--- NOTE | 2020-08-05 22:18 | PDOC ---
Exam Note: Anthony Note: Please also refer to the separate dictated note~for this date of service dictated separately.~Patient seen individually. Discussed the patient with Nursing staff reviewed the chart.~Reviewed interim history and current functioning. Reviewed vital signs,~Labs/ Radiology~and current medications noted below. Continue current treatment with the changes noted in the dictated addendum note Assessment: Vital Signs/I&O: Vital Signs Date Time Temp Pulse Resp B/P (MAP) Pulse Ox O2 Delivery O2 Flow Rate FiO2 08/05/20 15:47 97.5 61 20 96/66 (76) 94 08/04/20 21:40 Room Air I & O 08/04/20 08/04/20 08/05/20 15:00 23:00 07:00 Intake Total 950 ml 720 ml Balance 950 ml 720 ml Labs: Laboratory Tests Test 08/05/20 07:29 Glucose (Fingerstick) 106 mg/dL (70-99) H Current Medications: Meds: Laboratory Tests Test 08/05/20 07:29 Glucose (Fingerstick) 106 mg/dL Current Medications Medications (Trade) Dose Ordered Sig/Davida Route PRN Reason Start Time Stop Time Status Last Admin Dose Admin Acetaminophen (Tylenol) 650 mg PRN Q6HRS PRN PO MILD PAIN / TEMP > 100.3'F 07/10/20 12:30 Multi-Ingredient Ointment (Analgesic [place]) 1 marvel PRN QID PRN TP MUSCLE PAIN 07/10/20 12:30 Al Hydroxide/Mg Hydroxide (Mylanta Plus Xs) 15 ml PRN AFTMEALHC PRN PO DYSPEPSIA 07/10/20 12:30 Cancel Magnesium Hydroxide (Milk Of Magnesia) 2,400 mg PRN QHS PRN PO 2ND CHOICE CONSTIPATION 07/10/20 12:30 Albuterol Sulfate (Ventolin) 2.5 mg PRN Q4HRS PRN IH FOR ASTHMA 07/10/20 15:30 Amlodipine Besylate (Norvasc) 5 mg DAILY PO 07/11/20 09:00 08/05/20 09:00 Aspirin (Aspirin Enteric Coated) 81 mg DAILY08 PO 07/11/20 08:00 08/05/20 08:57 Atorvastatin Calcium (Lipitor) 20 mg QHS PO 07/10/20 21:00 08/05/20 21:53 Clonazepam (KlonoPIN) 2 mg TID PO 07/10/20 21:00 07/20/20 16:15 DC 07/20/20 13:10 Divalproex Sodium (Depakote Er) 250 mg TID PO 07/10/20 21:00 07/18/20 18:41 DC 07/18/20 13:44 Ferrous Sulfate (Feosol) 325 mg BID PO 07/10/20 21:00 08/05/20 21:53 Guaifenesin (Mucinex Er) 600 mg PRN Q12HR PRN PO nasal congestion 07/10/20 15:30 Hydrochlorothiazide (Hydrodiuril) 25 mg DAILYWBKFT PO 07/11/20 08:00 08/05/20 09:00 Ketotifen Fumarate (Zaditor) 1 drop BID OU 07/10/20 21:00 08/05/20 21:00 Loperamide HCl (Imodium) 4 mg PRN DAILY PRN PO FIRST OCCURANCE OF DIARRHEA 07/10/20 15:30 Memantine (Namenda) 10 mg BID PO 07/10/20 21:00 08/05/20 21:53 Metformin HCl (Glucophage) 500 mg DAILYWBKFT PO 07/11/20 08:00 08/05/20 09:00 Paroxetine HCl (Paxil) 40 mg DAILY PO 07/11/20 09:00 07/12/20 11:47 DC 07/12/20 08:10 Polyethylene Glycol (miraLAX) 17 gm PRN DAILY PRN PO 1ST CHOICE CONSTIPATION 07/10/20 15:30 Artificial Tears (Artificial Tears) 1 drop PRN Q1HR PRN OU itchy eyes 07/10/20 15:30 Potassium Chloride (Klor-Con) 10 meq DAILY08 PO 07/11/20 08:00 08/05/20 09:00 Risperidone (RisperDAL) 1 mg BID PO 07/10/20 21:00 07/19/20 11:49 DC 07/19/20 08:52 Senna/Docusate Sodium (Senna Plus) 2 tab PRN BID PRN PO 3RD CHOICE CONSTIPATION 07/10/20 15:30 Calcium Carbonate/ Glycine (Tums) 1,000 mg PRN Q4HRS PRN PO HEARTBURN / GAS, 1ST CHOICE 07/10/20 16:15 Vitamin D (Vitamin D3) 2,000 unit DAILY PO 07/11/20 09:00 08/05/20 08:57 Throat Lozenges (Cepacol Sore Throat Lozenge) 1 danna PRN Q2HR PRN PO SORE THROAT 07/10/20 16:15 Guaifenesin (Robitussin Dm) 10 ml PRN Q4HRS PRN PO COUGH 07/10/20 16:15 Lisinopril (Prinivil) 40 mg DAILY PO 07/11/20 09:00 08/05/20 08:59 Loperamide HCl (Imodium) 2 mg PRN Q1HR PRN PO DIARRHEA 07/10/20 16:30 Al Hydroxide/Mg Hydroxide (Mylanta Plus Xs) 20 ml PRN Q4HRS PRN PO INDIGESTION, 2ND CHOICE 07/10/20 16:30 Multi-Ingred Cream/Lotion/Oil/ Oint (Artificial Tears Eye Ointment) 1 marvel NOON OU 07/11/20 12:00 08/05/20 14:09 Oxybutynin Chloride (Ditropan) 5 mg [id number] PO 07/10/20 21:00 08/05/20 21:53 Olanzapine (ZyPREXA ZYDIS) 2.5 mg PRN Q2HRS PRN PO PSYCHOSIS 07/10/20 20:00 07/22/20 15:52 DC 07/22/20 14:21 Fluvoxamine Maleate (Luvox) 25 mg DAILY PO 07/13/20 09:00 07/14/20 09:05 DC 07/14/20 08:25 Fluvoxamine Maleate (Luvox) 50 mg DAILY PO 07/15/20 09:00 07/16/20 09:05 DC 07/16/20 08:14 Fluvoxamine Maleate (Luvox) 75 mg DAILY PO 07/17/20 09:00 08/01/20 18:48 DC 08/01/20 08:52 Divalproex Sodium (Depakote Er) 250 mg 0900 PO 07/19/20 09:00 07/20/20 16:12 DC 07/20/20 08:05 Divalproex Sodium (Depakote Er) 750 mg QHS PO 07/18/20 21:00 07/20/20 16:12 DC 07/19/20 20:59 Risperidone (RisperDAL) 2 mg BID PO 07/19/20 21:00 07/20/20 16:13 DC 07/20/20 08:06 Divalproex Sodium (Depakote Er) 500 mg 0900 PO 07/21/20 09:00 08/05/20 09:00 Divalproex Sodium (Depakote Er) 1,000 mg QHS PO 07/20/20 21:00 08/05/20 21:53 Risperidone (RisperDAL) 3 mg BID PO 07/20/20 21:00 08/05/20 21:53 Clonazepam (KlonoPIN) 1 mg QID PO 07/20/20 17:00 08/05/20 21:54 Neomycin/ Polymyxin/Bacitr/ Hydrocort (Cortisporin Ophth) 2 marvel BID OU 07/21/20 17:00 08/05/20 12:50 Quetiapine Fumarate (SEROquel) 50 mg TID PO 07/22/20 17:00 07/25/20 13:04 DC 07/25/20 12:28 Quetiapine Fumarate (SEROquel) 75 mg TID PO 07/25/20 14:00 08/05/20 21:52 Quetiapine Fumarate (SEROquel) 50 mg 1X ONCE PO 07/25/20 13:15 07/25/20 13:21 DC 07/25/20 13:24 Fluvoxamine Maleate (Luvox) 100 mg DAILY PO 08/02/20 09:00 08/05/20 08:59 DC 08/04/20 08:40 Fluvoxamine Maleate (Luvox) 150 mg DAILY PO 08/05/20 09:00 08/05/20 08:57 Current Medications Medications (Trade) Dose Ordered Sig/Davida Route PRN Reason Start Time Stop Time Status Last Admin Dose Admin Fluvoxamine Maleate (Luvox) 150 mg DAILY PO 08/05/20 09:00 08/05/20 08:57 I have reviewed the current psychotropics carefully including drug interactions. Risk benefit ratio favors no change other than as noted in my dictated progress note. Diagnosis: Problems: (1) OCD (obsessive compulsive disorder) (2) Impulse control disorder, unspecified (3) Anxiety disorder, unspecified (4) Intellectual disability (5) Psychotic disorder BRE WYLIE MD August 05, 2020 22:18
[2020-08-06 06:30] VITALS: BP_SYST 121; BP_SYST 139; BP_DIAS 72; BP_DIAS 73
--- NOTE | 2020-08-06 07:21 | PDOC ---
Exam Note: Anthony Note: This note is a late entry for 08/05/2020 covers elements not covered in my initial note. Subjective: The patient was seen individually in the evening of 08/05/2020 with Lucas IRWIN, discussed and reviewed the chart. He slept 7-1/4 hours previous night. He is compliant with medications. He has been obsessing about calling the family and not going back to [facility]. Overall he is less obsessive. Review of Systems: No CV, , pulmonary, eye, ENT system symptoms on review. Mental Status Exam: The patient is oriented to himself and situation. He does complain of anxiety. Speech repetitive, coherent. Abstraction fair. Computation impaired. Language function intact. Attention span short. Mood and affect remains somewhat less obsessive. Laboratory Data: Reviewed. Impression: Psychotic disorder unspecified. Obsessive-compulsive disorder. Intellectual disability. Probable bipolar disorder unspecified. Rest unchanged. Plan: No change from initial note. Assessment: Vital Signs/I&O: Vital Signs Date Time Temp Pulse Resp B/P (MAP) Pulse Ox O2 Delivery O2 Flow Rate FiO2 08/06/20 06:30 97.0 63 18 139/73 (95) 96 08/04/20 21:40 Room Air I & O 08/05/20 08/05/20 08/06/20 14:59 22:59 06:59 Intake Total 960 ml 480 ml Balance 960 ml 480 ml Labs: Laboratory Tests Test 08/05/20 07:29 Glucose (Fingerstick) 106 mg/dL (70-99) H Current Medications: Meds: Laboratory Tests Test 08/05/20 07:29 Glucose (Fingerstick) 106 mg/dL Current Medications Medications (Trade) Dose Ordered Sig/Davida Route PRN Reason Start Time Stop Time Status Last Admin Dose Admin Acetaminophen (Tylenol) 650 mg PRN Q6HRS PRN PO MILD PAIN / TEMP > 100.3'F 07/10/20 12:30 Multi-Ingredient Ointment (Analgesic [place]) 1 marvel PRN QID PRN TP MUSCLE PAIN 07/10/20 12:30 Al Hydroxide/Mg Hydroxide (Mylanta Plus Xs) 15 ml PRN AFTMEALHC PRN PO DYSPEPSIA 07/10/20 12:30 Cancel Magnesium Hydroxide (Milk Of Magnesia) 2,400 mg PRN QHS PRN PO 2ND CHOICE CONSTIPATION 07/10/20 12:30 Albuterol Sulfate (Ventolin) 2.5 mg PRN Q4HRS PRN IH FOR ASTHMA 07/10/20 15:30 Amlodipine Besylate (Norvasc) 5 mg DAILY PO 07/11/20 09:00 08/05/20 09:00 Aspirin (Aspirin Enteric Coated) 81 mg DAILY08 PO 07/11/20 08:00 08/05/20 08:57 Atorvastatin Calcium (Lipitor) 20 mg QHS PO 07/10/20 21:00 08/05/20 21:53 Clonazepam (KlonoPIN) 2 mg TID PO 07/10/20 21:00 07/20/20 16:15 DC 07/20/20 13:10 Divalproex Sodium (Depakote Er) 250 mg TID PO 07/10/20 21:00 07/18/20 18:41 DC 07/18/20 13:44 Ferrous Sulfate (Feosol) 325 mg BID PO 07/10/20 21:00 08/05/20 21:53 Guaifenesin (Mucinex Er) 600 mg PRN Q12HR PRN PO nasal congestion 07/10/20 15:30 Hydrochlorothiazide (Hydrodiuril) 25 mg DAILYWBKFT PO 07/11/20 08:00 08/05/20 09:00 Ketotifen Fumarate (Zaditor) 1 drop BID OU 07/10/20 21:00 08/05/20 21:00 Loperamide HCl (Imodium) 4 mg PRN DAILY PRN PO FIRST OCCURANCE OF DIARRHEA 07/10/20 15:30 Memantine (Namenda) 10 mg BID PO 07/10/20 21:00 08/05/20 21:53 Metformin HCl (Glucophage) 500 mg DAILYWBKFT PO 07/11/20 08:00 08/05/20 09:00 Paroxetine HCl (Paxil) 40 mg DAILY PO 07/11/20 09:00 07/12/20 11:47 DC 07/12/20 08:10 Polyethylene Glycol (miraLAX) 17 gm PRN DAILY PRN PO 1ST CHOICE CONSTIPATION 07/10/20 15:30 Artificial Tears (Artificial Tears) 1 drop PRN Q1HR PRN OU itchy eyes 07/10/20 15:30 Potassium Chloride (Klor-Con) 10 meq DAILY08 PO 07/11/20 08:00 08/05/20 09:00 Risperidone (RisperDAL) 1 mg BID PO 07/10/20 21:00 07/19/20 11:49 DC 07/19/20 08:52 Senna/Docusate Sodium (Senna Plus) 2 tab PRN BID PRN PO 3RD CHOICE CONSTIPATION 07/10/20 15:30 Calcium Carbonate/ Glycine (Tums) 1,000 mg PRN Q4HRS PRN PO HEARTBURN / GAS, 1ST CHOICE 07/10/20 16:15 Vitamin D (Vitamin D3) 2,000 unit DAILY PO 07/11/20 09:00 08/05/20 08:57 Throat Lozenges (Cepacol Sore Throat Lozenge) 1 danna PRN Q2HR PRN PO SORE THROAT 07/10/20 16:15 Guaifenesin (Robitussin Dm) 10 ml PRN Q4HRS PRN PO COUGH 07/10/20 16:15 Lisinopril (Prinivil) 40 mg DAILY PO 07/11/20 09:00 08/05/20 08:59 Loperamide HCl (Imodium) 2 mg PRN Q1HR PRN PO DIARRHEA 07/10/20 16:30 Al Hydroxide/Mg Hydroxide (Mylanta Plus Xs) 20 ml PRN Q4HRS PRN PO INDIGESTION, 2ND CHOICE 07/10/20 16:30 Multi-Ingred Cream/Lotion/Oil/ Oint (Artificial Tears Eye Ointment) 1 marvel NOON OU 07/11/20 12:00 08/05/20 14:09 Oxybutynin Chloride (Ditropan) 5 mg [id number] PO 07/10/20 21:00 08/05/20 21:53 Olanzapine (ZyPREXA ZYDIS) 2.5 mg PRN Q2HRS PRN PO PSYCHOSIS 07/10/20 20:00 07/22/20 15:52 DC 07/22/20 14:21 Fluvoxamine Maleate (Luvox) 25 mg DAILY PO 07/13/20 09:00 07/14/20 09:05 DC 07/14/20 08:25 Fluvoxamine Maleate (Luvox) 50 mg DAILY PO 07/15/20 09:00 07/16/20 09:05 DC 07/16/20 08:14 Fluvoxamine Maleate (Luvox) 75 mg DAILY PO 07/17/20 09:00 08/01/20 18:48 DC 08/01/20 08:52 Divalproex Sodium (Depakote Er) 250 mg 0900 PO 07/19/20 09:00 07/20/20 16:12 DC 07/20/20 08:05 Divalproex Sodium (Depakote Er) 750 mg QHS PO 07/18/20 21:00 07/20/20 16:12 DC 07/19/20 20:59 Risperidone (RisperDAL) 2 mg BID PO 07/19/20 21:00 07/20/20 16:13 DC 07/20/20 08:06 Divalproex Sodium (Depakote Er) 500 mg 0900 PO 07/21/20 09:00 08/05/20 09:00 Divalproex Sodium (Depakote Er) 1,000 mg QHS PO 07/20/20 21:00 08/05/20 21:53 Risperidone (RisperDAL) 3 mg BID PO 07/20/20 21:00 08/05/20 21:53 Clonazepam (KlonoPIN) 1 mg QID PO 07/20/20 17:00 08/05/20 21:54 Neomycin/ Polymyxin/Bacitr/ Hydrocort (Cortisporin Ophth) 2 marvel BID OU 07/21/20 17:00 08/05/20 12:50 Quetiapine Fumarate (SEROquel) 50 mg TID PO 07/22/20 17:00 07/25/20 13:04 DC 07/25/20 12:28 Quetiapine Fumarate (SEROquel) 75 mg TID PO 07/25/20 14:00 08/05/20 21:52 Quetiapine Fumarate (SEROquel) 50 mg 1X ONCE PO 07/25/20 13:15 07/25/20 13:21 DC 07/25/20 13:24 Fluvoxamine Maleate (Luvox) 100 mg DAILY PO 08/02/20 09:00 08/05/20 08:59 DC 08/04/20 08:40 Fluvoxamine Maleate (Luvox) 150 mg DAILY PO 08/05/20 09:00 08/05/20 08:57 Current Medications Medications (Trade) Dose Ordered Sig/Davida Route PRN Reason Start Time Stop Time Status Last Admin Dose Admin Fluvoxamine Maleate (Luvox) 150 mg DAILY PO 08/05/20 09:00 08/05/20 08:57 I have reviewed the current psychotropics carefully including drug interactions. Risk benefit ratio favors no change other than as noted in my dictated progress note. Diagnosis: Problems: (1) OCD (obsessive compulsive disorder) (2) Impulse control disorder, unspecified (3) Anxiety disorder, unspecified (4) Intellectual disability (5) Psychotic disorder BRE WYLIE MD August 06, 2020 07:21
[2020-08-06] MEDS: CHOLECALCIFEROL (VITAMIN D3) 1,000 UNIT TABLET PO SCH (08:00)
[2020-08-06] MEDS: ASPIRIN ENTERIC COATED 81 MG TABLET.DR. PO SCH (08:00)
[2020-08-06] MEDS: hydroCHLOROthiazide 25 MG TABLET PO SCH (08:00)
[2020-08-06] MEDS: QUEtiapine 25 MG TABLET. PO SCH ×3 (08:00→20:06)
[2020-08-06] MEDS: metFORMIN 500 MG TABLET PO SCH (08:01)
[2020-08-06] MEDS: clonazePAM 1 MG TABLET PO SCH ×4 (08:01→20:06)
[2020-08-06] MEDS: POTASSIUM CHLORIDE 10 MEQ TABLET.ER. PO SCH (08:01)
[2020-08-06] MEDS: MEMANTINE 10 MG TABLET. PO SCH ×2 (08:01→20:06)
[2020-08-06] MEDS: FERROUS SULFATE 325 MG TABLET. PO SCH ×2 (08:01→20:07)
[2020-08-06] MEDS: amLODIPine BESYLATE 5 MG TABLET PO SCH (08:01)
[2020-08-06] MEDS: LISINOPRIL 20 MG TABLET PO SCH (08:02)
[2020-08-06] MEDS: OXYBUTYNIN CHLORIDE 5 MG TABLET PO SCH ×3 (08:02→20:07)
[2020-08-06] MEDS: risperiDONE 2 MG TABLET. PO SCH ×2 (08:02→20:07)
[2020-08-06] MEDS: KETOTIFEN FUMARATE 0.025% OPHT SOLUTION BOTTLE. OU SCH ×2 (08:03→20:08)
[2020-08-06] MEDS: NEOMYCIN/BACI/POLY/HC OPHTH OINTMENT 3.5GM TUBE. OU SCH ×2 (08:03→20:08)
[2020-08-06] MEDS: DIVALPROEX ER 500 MG TAB.ER.24H PO SCH ×2 (08:03→20:07)
[2020-08-06] MEDS: MINERAL OIL/PETROLATUM,WHITE OPHTH OINT 3.5GM TUBE. OU SCH (12:18)
[2020-08-06 16:13] VITALS: BP 112/76
[2020-08-06] MEDS: ATORVASTATIN CALCIUM 20 MG TABLET PO SCH (20:06)
--- NOTE | 2020-08-06 22:19 | PDOC ---
Exam Note: Anthony Note: Please also refer to the separate dictated note~for this date of service dictated separately.~Patient seen individually. Discussed the patient with Nursing staff reviewed the chart.~Reviewed interim history and current functioning. Reviewed vital signs,~Labs/ Radiology~and current medications noted below. Continue current treatment with the changes noted in the dictated addendum note Assessment: Vital Signs/I&O: Vital Signs Date Time Temp Pulse Resp B/P (MAP) Pulse Ox O2 Delivery O2 Flow Rate FiO2 08/06/20 16:13 98.0 77 18 112/76 (88) 96 08/04/20 21:40 Room Air I & O 08/05/20 08/05/20 08/06/20 15:00 23:00 07:00 Intake Total 960 ml 480 ml Balance 960 ml 480 ml Labs: Laboratory Tests Test 08/06/20 08:02 Glucose (Fingerstick) 71 mg/dL (70-99) Current Medications: Meds: Laboratory Tests Test 08/06/20 08:02 Glucose (Fingerstick) 71 mg/dL Current Medications Medications (Trade) Dose Ordered Sig/Davida Route PRN Reason Start Time Stop Time Status Last Admin Dose Admin Acetaminophen (Tylenol) 650 mg PRN Q6HRS PRN PO MILD PAIN / TEMP > 100.3'F 07/10/20 12:30 Multi-Ingredient Ointment (Analgesic [place]) 1 marvel PRN QID PRN TP MUSCLE PAIN 07/10/20 12:30 Al Hydroxide/Mg Hydroxide (Mylanta Plus Xs) 15 ml PRN AFTMEALHC PRN PO DYSPEPSIA 07/10/20 12:30 Cancel Magnesium Hydroxide (Milk Of Magnesia) 2,400 mg PRN QHS PRN PO 2ND CHOICE CONSTIPATION 07/10/20 12:30 Albuterol Sulfate (Ventolin) 2.5 mg PRN Q4HRS PRN IH FOR ASTHMA 07/10/20 15:30 Amlodipine Besylate (Norvasc) 5 mg DAILY PO 07/11/20 09:00 08/06/20 08:01 Aspirin (Aspirin Enteric Coated) 81 mg DAILY08 PO 07/11/20 08:00 08/06/20 08:00 Atorvastatin Calcium (Lipitor) 20 mg QHS PO 07/10/20 21:00 08/06/20 20:06 Clonazepam (KlonoPIN) 2 mg TID PO 07/10/20 21:00 07/20/20 16:15 DC 07/20/20 13:10 Divalproex Sodium (Depakote Er) 250 mg TID PO 07/10/20 21:00 07/18/20 18:41 DC 07/18/20 13:44 Ferrous Sulfate (Feosol) 325 mg BID PO 07/10/20 21:00 08/06/20 20:07 Guaifenesin (Mucinex Er) 600 mg PRN Q12HR PRN PO nasal congestion 07/10/20 15:30 Hydrochlorothiazide (Hydrodiuril) 25 mg DAILYWBKFT PO 07/11/20 08:00 08/06/20 08:00 Ketotifen Fumarate (Zaditor) 1 drop BID OU 07/10/20 21:00 08/06/20 20:08 Loperamide HCl (Imodium) 4 mg PRN DAILY PRN PO FIRST OCCURANCE OF DIARRHEA 07/10/20 15:30 Memantine (Namenda) 10 mg BID PO 07/10/20 21:00 08/06/20 20:06 Metformin HCl (Glucophage) 500 mg DAILYWBKFT PO 07/11/20 08:00 08/06/20 08:01 Paroxetine HCl (Paxil) 40 mg DAILY PO 07/11/20 09:00 07/12/20 11:47 DC 07/12/20 08:10 Polyethylene Glycol (miraLAX) 17 gm PRN DAILY PRN PO 1ST CHOICE CONSTIPATION 07/10/20 15:30 Artificial Tears (Artificial Tears) 1 drop PRN Q1HR PRN OU itchy eyes 07/10/20 15:30 Potassium Chloride (Klor-Con) 10 meq DAILY08 PO 07/11/20 08:00 08/06/20 08:01 Risperidone (RisperDAL) 1 mg BID PO 07/10/20 21:00 07/19/20 11:49 DC 07/19/20 08:52 Senna/Docusate Sodium (Senna Plus) 2 tab PRN BID PRN PO 3RD CHOICE CONSTIPATION 07/10/20 15:30 Calcium Carbonate/ Glycine (Tums) 1,000 mg PRN Q4HRS PRN PO HEARTBURN / GAS, 1ST CHOICE 07/10/20 16:15 Vitamin D (Vitamin D3) 2,000 unit DAILY PO 07/11/20 09:00 08/06/20 08:00 Throat Lozenges (Cepacol Sore Throat Lozenge) 1 danna PRN Q2HR PRN PO SORE THROAT 07/10/20 16:15 Guaifenesin (Robitussin Dm) 10 ml PRN Q4HRS PRN PO COUGH 07/10/20 16:15 Lisinopril (Prinivil) 40 mg DAILY PO 07/11/20 09:00 08/06/20 08:02 Loperamide HCl (Imodium) 2 mg PRN Q1HR PRN PO DIARRHEA 07/10/20 16:30 Al Hydroxide/Mg Hydroxide (Mylanta Plus Xs) 20 ml PRN Q4HRS PRN PO INDIGESTION, 2ND CHOICE 07/10/20 16:30 Multi-Ingred Cream/Lotion/Oil/ Oint (Artificial Tears Eye Ointment) 1 marvel NOON OU 07/11/20 12:00 08/06/20 12:18 Oxybutynin Chloride (Ditropan) 5 mg [id number] PO 07/10/20 21:00 08/06/20 20:07 Olanzapine (ZyPREXA ZYDIS) 2.5 mg PRN Q2HRS PRN PO PSYCHOSIS 07/10/20 20:00 07/22/20 15:52 DC 07/22/20 14:21 Fluvoxamine Maleate (Luvox) 25 mg DAILY PO 07/13/20 09:00 07/14/20 09:05 DC 07/14/20 08:25 Fluvoxamine Maleate (Luvox) 50 mg DAILY PO 07/15/20 09:00 07/16/20 09:05 DC 07/16/20 08:14 Fluvoxamine Maleate (Luvox) 75 mg DAILY PO 07/17/20 09:00 08/01/20 18:48 DC 08/01/20 08:52 Divalproex Sodium (Depakote Er) 250 mg 0900 PO 07/19/20 09:00 07/20/20 16:12 DC 07/20/20 08:05 Divalproex Sodium (Depakote Er) 750 mg QHS PO 07/18/20 21:00 07/20/20 16:12 DC 07/19/20 20:59 Risperidone (RisperDAL) 2 mg BID PO 07/19/20 21:00 07/20/20 16:13 DC 07/20/20 08:06 Divalproex Sodium (Depakote Er) 500 mg 0900 PO 07/21/20 09:00 08/06/20 08:03 Divalproex Sodium (Depakote Er) 1,000 mg QHS PO 07/20/20 21:00 08/06/20 20:07 Risperidone (RisperDAL) 3 mg BID PO 07/20/20 21:00 08/06/20 20:07 Clonazepam (KlonoPIN) 1 mg QID PO 07/20/20 17:00 08/06/20 20:06 Neomycin/ Polymyxin/Bacitr/ Hydrocort (Cortisporin Ophth) 2 marvel BID OU 07/21/20 17:00 08/06/20 20:08 Quetiapine Fumarate (SEROquel) 50 mg TID PO 07/22/20 17:00 07/25/20 13:04 DC 07/25/20 12:28 Quetiapine Fumarate (SEROquel) 75 mg TID PO 07/25/20 14:00 08/06/20 20:06 Quetiapine Fumarate (SEROquel) 50 mg 1X ONCE PO 07/25/20 13:15 07/25/20 13:21 DC 07/25/20 13:24 Fluvoxamine Maleate (Luvox) 100 mg DAILY PO 08/02/20 09:00 08/05/20 08:59 DC 08/04/20 08:40 Fluvoxamine Maleate (Luvox) 150 mg DAILY PO 08/05/20 09:00 08/06/20 08:00 I have reviewed the current psychotropics carefully including drug interactions. Risk benefit ratio favors no change other than as noted in my dictated progress note. Diagnosis: Problems: (1) OCD (obsessive compulsive disorder) (2) Impulse control disorder, unspecified (3) Anxiety disorder, unspecified (4) Intellectual disability (5) Psychotic disorder BRE WYLIE MD August 06, 2020 22:19
[2020-08-07 06:23] VITALS: BP 100/67
[2020-08-07] MEDS: ASPIRIN ENTERIC COATED 81 MG TABLET.DR. PO SCH (08:14)
[2020-08-07] MEDS: OXYBUTYNIN CHLORIDE 5 MG TABLET PO SCH ×3 (08:14→21:20)
[2020-08-07] MEDS: FERROUS SULFATE 325 MG TABLET. PO SCH ×2 (08:14→21:20)
[2020-08-07] MEDS: hydroCHLOROthiazide 25 MG TABLET PO SCH (08:14)
[2020-08-07] MEDS: clonazePAM 1 MG TABLET PO SCH ×4 (08:15→21:19)
[2020-08-07] MEDS: QUEtiapine 25 MG TABLET. PO SCH ×3 (08:16→21:19)
[2020-08-07] MEDS: CHOLECALCIFEROL (VITAMIN D3) 1,000 UNIT TABLET PO SCH (08:16)
[2020-08-07] MEDS: risperiDONE 2 MG TABLET. PO SCH ×2 (08:16→21:20)
[2020-08-07] MEDS: LISINOPRIL 20 MG TABLET PO SCH (08:18)
[2020-08-07] MEDS: DIVALPROEX ER 500 MG TAB.ER.24H PO SCH ×2 (08:18→21:20)
[2020-08-07] MEDS: MEMANTINE 10 MG TABLET. PO SCH ×2 (08:19→21:20)
[2020-08-07] MEDS: amLODIPine BESYLATE 5 MG TABLET PO SCH (08:19)
[2020-08-07] MEDS: POTASSIUM CHLORIDE 10 MEQ TABLET.ER. PO SCH (08:19)
[2020-08-07] MEDS: metFORMIN 500 MG TABLET PO SCH (08:19)
[2020-08-07] MEDS: KETOTIFEN FUMARATE 0.025% OPHT SOLUTION BOTTLE. OU SCH ×2 (08:19→21:20)
[2020-08-07] MEDS: NEOMYCIN/BACI/POLY/HC OPHTH OINTMENT 3.5GM TUBE. OU SCH ×2 (08:20→21:20)
[2020-08-07] MEDS: MINERAL OIL/PETROLATUM,WHITE OPHTH OINT 3.5GM TUBE. OU SCH (12:22)
[2020-08-07 15:59] VITALS: BP 95/64
[2020-08-07] MEDS: ATORVASTATIN CALCIUM 20 MG TABLET PO SCH (21:20)
--- NOTE | 2020-08-07 21:59 | PDOC ---
Exam Note: Anthony Note: Please also refer to the separate dictated note~for this date of service dictated separately.~Patient seen individually. Discussed the patient with Nursing staff reviewed the chart.~Reviewed interim history and current functioning. Reviewed vital signs,~Labs/ Radiology~and current medications noted below. Continue current treatment with the changes noted in the dictated addendum note Assessment: Vital Signs/I&O: Vital Signs Date Time Temp Pulse Resp B/P (MAP) Pulse Ox O2 Delivery O2 Flow Rate FiO2 08/07/20 15:59 97.7 68 20 95/64 (74) 97 08/04/20 21:40 Room Air I & O 08/06/20 08/06/20 08/07/20 15:00 23:00 07:00 Intake Total 720 ml 480 ml Balance 720 ml 480 ml Labs: Laboratory Tests Test 08/07/20 07:17 Glucose (Fingerstick) 90 mg/dL (70-99) Current Medications: Meds: Laboratory Tests Test 08/07/20 07:17 Glucose (Fingerstick) 90 mg/dL Current Medications Medications (Trade) Dose Ordered Sig/Davida Route PRN Reason Start Time Stop Time Status Last Admin Dose Admin Acetaminophen (Tylenol) 650 mg PRN Q6HRS PRN PO MILD PAIN / TEMP > 100.3'F 07/10/20 12:30 Multi-Ingredient Ointment (Analgesic [place]) 1 marvel PRN QID PRN TP MUSCLE PAIN 07/10/20 12:30 Al Hydroxide/Mg Hydroxide (Mylanta Plus Xs) 15 ml PRN AFTMEALHC PRN PO DYSPEPSIA 07/10/20 12:30 Cancel Magnesium Hydroxide (Milk Of Magnesia) 2,400 mg PRN QHS PRN PO 2ND CHOICE CONSTIPATION 07/10/20 12:30 Albuterol Sulfate (Ventolin) 2.5 mg PRN Q4HRS PRN IH FOR ASTHMA 07/10/20 15:30 Amlodipine Besylate (Norvasc) 5 mg DAILY PO 07/11/20 09:00 08/07/20 08:19 Aspirin (Aspirin Enteric Coated) 81 mg DAILY08 PO 07/11/20 08:00 08/07/20 08:14 Atorvastatin Calcium (Lipitor) 20 mg QHS PO 07/10/20 21:00 08/07/20 21:20 Clonazepam (KlonoPIN) 2 mg TID PO 07/10/20 21:00 07/20/20 16:15 DC 07/20/20 13:10 Divalproex Sodium (Depakote Er) 250 mg TID PO 07/10/20 21:00 07/18/20 18:41 DC 07/18/20 13:44 Ferrous Sulfate (Feosol) 325 mg BID PO 07/10/20 21:00 08/07/20 21:20 Guaifenesin (Mucinex Er) 600 mg PRN Q12HR PRN PO nasal congestion 07/10/20 15:30 Hydrochlorothiazide (Hydrodiuril) 25 mg DAILYWBKFT PO 07/11/20 08:00 08/07/20 08:14 Ketotifen Fumarate (Zaditor) 1 drop BID OU 07/10/20 21:00 08/07/20 21:20 Loperamide HCl (Imodium) 4 mg PRN DAILY PRN PO FIRST OCCURANCE OF DIARRHEA 07/10/20 15:30 Memantine (Namenda) 10 mg BID PO 07/10/20 21:00 08/07/20 21:20 Metformin HCl (Glucophage) 500 mg DAILYWBKFT PO 07/11/20 08:00 08/07/20 08:19 Paroxetine HCl (Paxil) 40 mg DAILY PO 07/11/20 09:00 07/12/20 11:47 DC 07/12/20 08:10 Polyethylene Glycol (miraLAX) 17 gm PRN DAILY PRN PO 1ST CHOICE CONSTIPATION 07/10/20 15:30 Artificial Tears (Artificial Tears) 1 drop PRN Q1HR PRN OU itchy eyes 07/10/20 15:30 Potassium Chloride (Klor-Con) 10 meq DAILY08 PO 07/11/20 08:00 08/07/20 08:19 Risperidone (RisperDAL) 1 mg BID PO 07/10/20 21:00 07/19/20 11:49 DC 07/19/20 08:52 Senna/Docusate Sodium (Senna Plus) 2 tab PRN BID PRN PO 3RD CHOICE CONSTIPATION 07/10/20 15:30 Calcium Carbonate/ Glycine (Tums) 1,000 mg PRN Q4HRS PRN PO HEARTBURN / GAS, 1ST CHOICE 07/10/20 16:15 Vitamin D (Vitamin D3) 2,000 unit DAILY PO 07/11/20 09:00 08/07/20 08:16 Throat Lozenges (Cepacol Sore Throat Lozenge) 1 danna PRN Q2HR PRN PO SORE THROAT 07/10/20 16:15 Guaifenesin (Robitussin Dm) 10 ml PRN Q4HRS PRN PO COUGH 07/10/20 16:15 Lisinopril (Prinivil) 40 mg DAILY PO 07/11/20 09:00 08/07/20 08:18 Loperamide HCl (Imodium) 2 mg PRN Q1HR PRN PO DIARRHEA 07/10/20 16:30 Al Hydroxide/Mg Hydroxide (Mylanta Plus Xs) 20 ml PRN Q4HRS PRN PO INDIGESTION, 2ND CHOICE 07/10/20 16:30 Multi-Ingred Cream/Lotion/Oil/ Oint (Artificial Tears Eye Ointment) 1 marvel NOON OU 07/11/20 12:00 08/07/20 12:22 Oxybutynin Chloride (Ditropan) 5 mg [id number] PO 07/10/20 21:00 08/07/20 21:20 Olanzapine (ZyPREXA ZYDIS) 2.5 mg PRN Q2HRS PRN PO PSYCHOSIS 07/10/20 20:00 07/22/20 15:52 DC 07/22/20 14:21 Fluvoxamine Maleate (Luvox) 25 mg DAILY PO 07/13/20 09:00 07/14/20 09:05 DC 07/14/20 08:25 Fluvoxamine Maleate (Luvox) 50 mg DAILY PO 07/15/20 09:00 07/16/20 09:05 DC 07/16/20 08:14 Fluvoxamine Maleate (Luvox) 75 mg DAILY PO 07/17/20 09:00 08/01/20 18:48 DC 08/01/20 08:52 Divalproex Sodium (Depakote Er) 250 mg 0900 PO 07/19/20 09:00 07/20/20 16:12 DC 07/20/20 08:05 Divalproex Sodium (Depakote Er) 750 mg QHS PO 07/18/20 21:00 07/20/20 16:12 DC 07/19/20 20:59 Risperidone (RisperDAL) 2 mg BID PO 07/19/20 21:00 07/20/20 16:13 DC 07/20/20 08:06 Divalproex Sodium (Depakote Er) 500 mg 0900 PO 07/21/20 09:00 08/07/20 08:18 Divalproex Sodium (Depakote Er) 1,000 mg QHS PO 07/20/20 21:00 08/07/20 21:20 Risperidone (RisperDAL) 3 mg BID PO 07/20/20 21:00 08/07/20 21:20 Clonazepam (KlonoPIN) 1 mg QID PO 07/20/20 17:00 08/07/20 21:19 Neomycin/ Polymyxin/Bacitr/ Hydrocort (Cortisporin Ophth) 2 marvel BID OU 07/21/20 17:00 08/07/20 21:20 Quetiapine Fumarate (SEROquel) 50 mg TID PO 07/22/20 17:00 07/25/20 13:04 DC 07/25/20 12:28 Quetiapine Fumarate (SEROquel) 75 mg TID PO 07/25/20 14:00 08/07/20 21:19 Quetiapine Fumarate (SEROquel) 50 mg 1X ONCE PO 07/25/20 13:15 07/25/20 13:21 DC 07/25/20 13:24 Fluvoxamine Maleate (Luvox) 100 mg DAILY PO 08/02/20 09:00 08/05/20 08:59 DC 08/04/20 08:40 Fluvoxamine Maleate (Luvox) 150 mg DAILY PO 08/05/20 09:00 08/07/20 08:18 I have reviewed the current psychotropics carefully including drug interactions. Risk benefit ratio favors no change other than as noted in my dictated progress note. Diagnosis: Problems: (1) OCD (obsessive compulsive disorder) (2) Anxiety disorder, unspecified (3) Intellectual disability (4) Psychotic disorder (5) Impulse control disorder, unspecified BRE WYLIE MD Aug 07, 2020 21:59
[2020-08-07] MEDS ORDERED: OXYB5TAB10 PO (22:06)
[2020-08-07] MEDS ORDERED: DIVA500T17 PO (22:07)
[2020-08-07] MEDS ORDERED: MAGN24003 PO (22:08)
[2020-08-07] MEDS ORDERED: TROL90CR TP (22:09)
[2020-08-07] MEDS ORDERED: QUET25TA5 PO (22:10)
[2020-08-07] MEDS ORDERED: FLUV100T2 PO (22:11)
[2020-08-07] MEDS ORDERED: CHOL10004 PO (22:16)
[2020-08-07] MEDS ORDERED: CHOL10002 PO (22:16)
[2020-08-08 06:22] VITALS: BP 111/76
--- NOTE | 2020-08-08 07:06 | PDOC ---
Exam Note: Anthony Note: This note is a late entry for 08/06/2020 covers elements not covered in my initial note. Subjective: The patient was seen individually in the evening of 08/06/2020 with Lucas IRWIN, discussed and reviewed the chart. He slept 7 hours previous night. He went to bed early, somewhat obsessive, demanding, saying he does not want to go back to [facility] in [place]. He states he has been praying and God will listen to him. His obsessiveness is better. Review of Systems: No CV, , pulmonary, eye, ENT system symptoms on review. Mental Status Exam: The patient is oriented to himself and situation. Speech repetitive, coherent. Abstraction fair. Computation impaired. Language function intact. Attention span short. Mood and affect remains less obsessive. Laboratory Data: Reviewed. Impression: Psychotic disorder unspecified. Obsessive-compulsive disorder. Intellectual disability. Probable bipolar disorder unspecified. Rest unchanged. Plan: No change from initial note. Assessment: Vital Signs/I&O: Vital Signs Date Time Temp Pulse Resp B/P (MAP) Pulse Ox O2 Delivery O2 Flow Rate FiO2 08/08/20 06:22 97.7 60 16 111/76 (88) 98 Room Air I & O 08/07/20 08/07/20 08/08/20 15:00 23:00 07:00 Intake Total 840 ml 480 ml 120 ml Balance 840 ml 480 ml 120 ml Labs: Laboratory Tests Test 08/07/20 07:17 Glucose (Fingerstick) 90 mg/dL (70-99) Current Medications: Meds: Laboratory Tests Test 08/07/20 07:17 Glucose (Fingerstick) 90 mg/dL Current Medications Medications (Trade) Dose Ordered Sig/Davida Route PRN Reason Start Time Stop Time Status Last Admin Dose Admin Acetaminophen (Tylenol) 650 mg PRN Q6HRS PRN PO MILD PAIN / TEMP > 100.3'F 07/10/20 12:30 Multi-Ingredient Ointment (Analgesic [place]) 1 marvel PRN QID PRN TP MUSCLE PAIN 07/10/20 12:30 Al Hydroxide/Mg Hydroxide (Mylanta Plus Xs) 15 ml PRN AFTMEALHC PRN PO DYSPEPSIA 07/10/20 12:30 Cancel Magnesium Hydroxide (Milk Of Magnesia) 2,400 mg PRN QHS PRN PO 2ND CHOICE CONSTIPATION 07/10/20 12:30 Albuterol Sulfate (Ventolin) 2.5 mg PRN Q4HRS PRN IH FOR ASTHMA 07/10/20 15:30 Amlodipine Besylate (Norvasc) 5 mg DAILY PO 07/11/20 09:00 08/07/20 08:19 Aspirin (Aspirin Enteric Coated) 81 mg DAILY08 PO 07/11/20 08:00 08/07/20 08:14 Atorvastatin Calcium (Lipitor) 20 mg QHS PO 07/10/20 21:00 08/07/20 21:20 Clonazepam (KlonoPIN) 2 mg TID PO 07/10/20 21:00 07/20/20 16:15 DC 07/20/20 13:10 Divalproex Sodium (Depakote Er) 250 mg TID PO 07/10/20 21:00 07/18/20 18:41 DC 07/18/20 13:44 Ferrous Sulfate (Feosol) 325 mg BID PO 07/10/20 21:00 08/07/20 21:20 Guaifenesin (Mucinex Er) 600 mg PRN Q12HR PRN PO nasal congestion 07/10/20 15:30 Hydrochlorothiazide (Hydrodiuril) 25 mg DAILYWBKFT PO 07/11/20 08:00 08/07/20 08:14 Ketotifen Fumarate (Zaditor) 1 drop BID OU 07/10/20 21:00 08/07/20 21:20 Loperamide HCl (Imodium) 4 mg PRN DAILY PRN PO FIRST OCCURANCE OF DIARRHEA 07/10/20 15:30 Memantine (Namenda) 10 mg BID PO 07/10/20 21:00 08/07/20 21:20 Metformin HCl (Glucophage) 500 mg DAILYWBKFT PO 07/11/20 08:00 08/07/20 08:19 Paroxetine HCl (Paxil) 40 mg DAILY PO 07/11/20 09:00 07/12/20 11:47 DC 07/12/20 08:10 Polyethylene Glycol (miraLAX) 17 gm PRN DAILY PRN PO 1ST CHOICE CONSTIPATION 07/10/20 15:30 Artificial Tears (Artificial Tears) 1 drop PRN Q1HR PRN OU itchy eyes 07/10/20 15:30 Potassium Chloride (Klor-Con) 10 meq DAILY08 PO 07/11/20 08:00 08/07/20 08:19 Risperidone (RisperDAL) 1 mg BID PO 07/10/20 21:00 07/19/20 11:49 DC 07/19/20 08:52 Senna/Docusate Sodium (Senna Plus) 2 tab PRN BID PRN PO 3RD CHOICE CONSTIPATION 07/10/20 15:30 Calcium Carbonate/ Glycine (Tums) 1,000 mg PRN Q4HRS PRN PO HEARTBURN / GAS, 1ST CHOICE 07/10/20 16:15 Vitamin D (Vitamin D3) 2,000 unit DAILY PO 07/11/20 09:00 08/07/20 08:16 Throat Lozenges (Cepacol Sore Throat Lozenge) 1 danna PRN Q2HR PRN PO SORE THROAT 07/10/20 16:15 Guaifenesin (Robitussin Dm) 10 ml PRN Q4HRS PRN PO COUGH 07/10/20 16:15 Lisinopril (Prinivil) 40 mg DAILY PO 07/11/20 09:00 08/07/20 08:18 Loperamide HCl (Imodium) 2 mg PRN Q1HR PRN PO DIARRHEA 07/10/20 16:30 Al Hydroxide/Mg Hydroxide (Mylanta Plus Xs) 20 ml PRN Q4HRS PRN PO INDIGESTION, 2ND CHOICE 07/10/20 16:30 Multi-Ingred Cream/Lotion/Oil/ Oint (Artificial Tears Eye Ointment) 1 marvel NOON OU 07/11/20 12:00 08/07/20 12:22 Oxybutynin Chloride (Ditropan) 5 mg [id number] PO 07/10/20 21:00 08/07/20 21:20 Olanzapine (ZyPREXA ZYDIS) 2.5 mg PRN Q2HRS PRN PO PSYCHOSIS 07/10/20 20:00 07/22/20 15:52 DC 07/22/20 14:21 Fluvoxamine Maleate (Luvox) 25 mg DAILY PO 07/13/20 09:00 07/14/20 09:05 DC 07/14/20 08:25 Fluvoxamine Maleate (Luvox) 50 mg DAILY PO 07/15/20 09:00 07/16/20 09:05 DC 07/16/20 08:14 Fluvoxamine Maleate (Luvox) 75 mg DAILY PO 07/17/20 09:00 08/01/20 18:48 DC 08/01/20 08:52 Divalproex Sodium (Depakote Er) 250 mg 0900 PO 07/19/20 09:00 07/20/20 16:12 DC 07/20/20 08:05 Divalproex Sodium (Depakote Er) 750 mg QHS PO 07/18/20 21:00 07/20/20 16:12 DC 07/19/20 20:59 Risperidone (RisperDAL) 2 mg BID PO 07/19/20 21:00 07/20/20 16:13 DC 07/20/20 08:06 Divalproex Sodium (Depakote Er) 500 mg 0900 PO 07/21/20 09:00 08/07/20 08:18 Divalproex Sodium (Depakote Er) 1,000 mg QHS PO 07/20/20 21:00 08/07/20 21:20 Risperidone (RisperDAL) 3 mg BID PO 07/20/20 21:00 08/07/20 21:20 Clonazepam (KlonoPIN) 1 mg QID PO 07/20/20 17:00 08/07/20 21:19 Neomycin/ Polymyxin/Bacitr/ Hydrocort (Cortisporin Ophth) 2 marvel BID OU 07/21/20 17:00 08/07/20 21:20 Quetiapine Fumarate (SEROquel) 50 mg TID PO 07/22/20 17:00 07/25/20 13:04 DC 07/25/20 12:28 Quetiapine Fumarate (SEROquel) 75 mg TID PO 07/25/20 14:00 08/07/20 21:19 Quetiapine Fumarate (SEROquel) 50 mg 1X ONCE PO 07/25/20 13:15 07/25/20 13:21 DC 07/25/20 13:24 Fluvoxamine Maleate (Luvox) 100 mg DAILY PO 08/02/20 09:00 08/05/20 08:59 DC 08/04/20 08:40 Fluvoxamine Maleate (Luvox) 150 mg DAILY PO 08/05/20 09:00 08/07/20 08:18 I have reviewed the current psychotropics carefully including drug interactions. Risk benefit ratio favors no change other than as noted in my dictated progress note. Diagnosis: Problems: (1) OCD (obsessive compulsive disorder) (2) Anxiety disorder, unspecified (3) Intellectual disability (4) Psychotic disorder (5) Impulse control disorder, unspecified BRE WYLIE MD Aug 08, 2020 07:06
--- NOTE | 2020-08-08 07:35 | PDOC ---
Exam Note: nAthony Note: This note is a late entry for 08/07/2020 covers elements not covered in my initial note. Subjective: The patient was seen individually in the evening of 08/07/2020 with Lucas IRWIN, discussed and reviewed the chart. He slept 7-1/4 hours previous night. He has been more anxious in the evening. He urinated on the floor, compliant with medications. He states he does not want to go back to [facility] in [place], [place] and states he has been praying persistently to help with this. Review of Systems: No CV, , pulmonary, eye, ENT system symptoms on review. Mental Status Exam: The patient is oriented to himself and situation. Speech repetitive, coherent. Abstraction fair. Computation impaired. Language function intact. Attention span short. Mood and affect remains somewhat less obsessive. Laboratory Data: Reviewed. Impression: Psychotic disorder unspecified. Obsessive-compulsive disorder. Intellectual disability. Probable bipolar disorder unspecified. Rest unchanged. Plan: No change from initial note. Assessment: Vital Signs/I&O: Vital Signs Date Time Temp Pulse Resp B/P (MAP) Pulse Ox O2 Delivery O2 Flow Rate FiO2 08/08/20 06:22 97.7 60 16 111/76 (88) 98 Room Air I & O 08/07/20 08/07/20 08/08/20 15:00 23:00 07:00 Intake Total 840 ml 480 ml 120 ml Balance 840 ml 480 ml 120 ml Labs: Laboratory Tests Test 08/08/20 07:09 Glucose (Fingerstick) 98 mg/dL (70-99) Current Medications: Meds: Laboratory Tests Test 08/08/20 07:09 Glucose (Fingerstick) 98 mg/dL Current Medications Medications (Trade) Dose Ordered Sig/Davida Route PRN Reason Start Time Stop Time Status Last Admin Dose Admin Acetaminophen (Tylenol) 650 mg PRN Q6HRS PRN PO MILD PAIN / TEMP > 100.3'F 07/10/20 12:30 Multi-Ingredient Ointment (Analgesic [place]) 1 marvel PRN QID PRN TP MUSCLE PAIN 07/10/20 12:30 Al Hydroxide/Mg Hydroxide (Mylanta Plus Xs) 15 ml PRN AFTMEALHC PRN PO DYSPEPSIA 07/10/20 12:30 Cancel Magnesium Hydroxide (Milk Of Magnesia) 2,400 mg PRN QHS PRN PO 2ND CHOICE CONSTIPATION 07/10/20 12:30 Albuterol Sulfate (Ventolin) 2.5 mg PRN Q4HRS PRN IH FOR ASTHMA 07/10/20 15:30 Amlodipine Besylate (Norvasc) 5 mg DAILY PO 07/11/20 09:00 08/07/20 08:19 Aspirin (Aspirin Enteric Coated) 81 mg DAILY08 PO 07/11/20 08:00 08/07/20 08:14 Atorvastatin Calcium (Lipitor) 20 mg QHS PO 07/10/20 21:00 08/07/20 21:20 Clonazepam (KlonoPIN) 2 mg TID PO 07/10/20 21:00 07/20/20 16:15 DC 07/20/20 13:10 Divalproex Sodium (Depakote Er) 250 mg TID PO 07/10/20 21:00 07/18/20 18:41 DC 07/18/20 13:44 Ferrous Sulfate (Feosol) 325 mg BID PO 07/10/20 21:00 08/07/20 21:20 Guaifenesin (Mucinex Er) 600 mg PRN Q12HR PRN PO nasal congestion 07/10/20 15:30 Hydrochlorothiazide (Hydrodiuril) 25 mg DAILYWBKFT PO 07/11/20 08:00 08/07/20 08:14 Ketotifen Fumarate (Zaditor) 1 drop BID OU 07/10/20 21:00 08/07/20 21:20 Loperamide HCl (Imodium) 4 mg PRN DAILY PRN PO FIRST OCCURANCE OF DIARRHEA 07/10/20 15:30 Memantine (Namenda) 10 mg BID PO 07/10/20 21:00 08/07/20 21:20 Metformin HCl (Glucophage) 500 mg DAILYWBKFT PO 07/11/20 08:00 08/07/20 08:19 Paroxetine HCl (Paxil) 40 mg DAILY PO 07/11/20 09:00 07/12/20 11:47 DC 07/12/20 08:10 Polyethylene Glycol (miraLAX) 17 gm PRN DAILY PRN PO 1ST CHOICE CONSTIPATION 07/10/20 15:30 Artificial Tears (Artificial Tears) 1 drop PRN Q1HR PRN OU itchy eyes 07/10/20 15:30 Potassium Chloride (Klor-Con) 10 meq DAILY08 PO 07/11/20 08:00 08/07/20 08:19 Risperidone (RisperDAL) 1 mg BID PO 07/10/20 21:00 07/19/20 11:49 DC 07/19/20 08:52 Senna/Docusate Sodium (Senna Plus) 2 tab PRN BID PRN PO 3RD CHOICE CONSTIPATION 07/10/20 15:30 Calcium Carbonate/ Glycine (Tums) 1,000 mg PRN Q4HRS PRN PO HEARTBURN / GAS, 1ST CHOICE 07/10/20 16:15 Vitamin D (Vitamin D3) 2,000 unit DAILY PO 07/11/20 09:00 08/07/20 08:16 Throat Lozenges (Cepacol Sore Throat Lozenge) 1 danna PRN Q2HR PRN PO SORE THROAT 07/10/20 16:15 Guaifenesin (Robitussin Dm) 10 ml PRN Q4HRS PRN PO COUGH 07/10/20 16:15 Lisinopril (Prinivil) 40 mg DAILY PO 07/11/20 09:00 08/07/20 08:18 Loperamide HCl (Imodium) 2 mg PRN Q1HR PRN PO DIARRHEA 07/10/20 16:30 Al Hydroxide/Mg Hydroxide (Mylanta Plus Xs) 20 ml PRN Q4HRS PRN PO INDIGESTION, 2ND CHOICE 07/10/20 16:30 Multi-Ingred Cream/Lotion/Oil/ Oint (Artificial Tears Eye Ointment) 1 marvel NOON OU 07/11/20 12:00 08/07/20 12:22 Oxybutynin Chloride (Ditropan) 5 mg [id number] PO 07/10/20 21:00 08/07/20 21:20 Olanzapine (ZyPREXA ZYDIS) 2.5 mg PRN Q2HRS PRN PO PSYCHOSIS 07/10/20 20:00 07/22/20 15:52 DC 07/22/20 14:21 Fluvoxamine Maleate (Luvox) 25 mg DAILY PO 07/13/20 09:00 07/14/20 09:05 DC 07/14/20 08:25 Fluvoxamine Maleate (Luvox) 50 mg DAILY PO 07/15/20 09:00 07/16/20 09:05 DC 07/16/20 08:14 Fluvoxamine Maleate (Luvox) 75 mg DAILY PO 07/17/20 09:00 08/01/20 18:48 DC 08/01/20 08:52 Divalproex Sodium (Depakote Er) 250 mg 0900 PO 07/19/20 09:00 07/20/20 16:12 DC 07/20/20 08:05 Divalproex Sodium (Depakote Er) 750 mg QHS PO 07/18/20 21:00 07/20/20 16:12 DC 07/19/20 20:59 Risperidone (RisperDAL) 2 mg BID PO 07/19/20 21:00 07/20/20 16:13 DC 07/20/20 08:06 Divalproex Sodium (Depakote Er) 500 mg 0900 PO 07/21/20 09:00 08/07/20 08:18 Divalproex Sodium (Depakote Er) 1,000 mg QHS PO 07/20/20 21:00 08/07/20 21:20 Risperidone (RisperDAL) 3 mg BID PO 07/20/20 21:00 08/07/20 21:20 Clonazepam (KlonoPIN) 1 mg QID PO 07/20/20 17:00 08/07/20 21:19 Neomycin/ Polymyxin/Bacitr/ Hydrocort (Cortisporin Ophth) 2 marvel BID OU 07/21/20 17:00 08/07/20 21:20 Quetiapine Fumarate (SEROquel) 50 mg TID PO 07/22/20 17:00 07/25/20 13:04 DC 07/25/20 12:28 Quetiapine Fumarate (SEROquel) 75 mg TID PO 07/25/20 14:00 08/07/20 21:19 Quetiapine Fumarate (SEROquel) 50 mg 1X ONCE PO 07/25/20 13:15 07/25/20 13:21 DC 07/25/20 13:24 Fluvoxamine Maleate (Luvox) 100 mg DAILY PO 08/02/20 09:00 08/05/20 08:59 DC 08/04/20 08:40 Fluvoxamine Maleate (Luvox) 150 mg DAILY PO 08/05/20 09:00 08/07/20 08:18 I have reviewed the current psychotropics carefully including drug interactions. Risk benefit ratio favors no change other than as noted in my dictated progress note. Diagnosis: Problems: (1) OCD (obsessive compulsive disorder) (2) Anxiety disorder, unspecified (3) Intellectual disability (4) Psychotic disorder (5) Impulse control disorder, unspecified BRE WYLIE MD Aug 08, 2020 07:35
[2020-08-08] MEDS: ASPIRIN ENTERIC COATED 81 MG TABLET.DR. PO SCH (08:02)
[2020-08-08] MEDS: hydroCHLOROthiazide 25 MG TABLET PO SCH (08:02)
[2020-08-08] MEDS: CHOLECALCIFEROL (VITAMIN D3) 1,000 UNIT TABLET PO SCH (08:03)
[2020-08-08] MEDS: POTASSIUM CHLORIDE 10 MEQ TABLET.ER. PO SCH (08:03)
[2020-08-08] MEDS: OXYBUTYNIN CHLORIDE 5 MG TABLET PO SCH ×3 (08:04→20:22)
[2020-08-08] MEDS: MEMANTINE 10 MG TABLET. PO SCH ×2 (08:05→20:23)
[2020-08-08] MEDS: DIVALPROEX ER 500 MG TAB.ER.24H PO SCH ×2 (08:05→20:23)
[2020-08-08] MEDS: QUEtiapine 25 MG TABLET. PO SCH ×3 (08:05→20:23)
[2020-08-08] MEDS: FERROUS SULFATE 325 MG TABLET. PO SCH ×2 (08:05→20:23)
[2020-08-08] MEDS: metFORMIN 500 MG TABLET PO SCH (08:05)
[2020-08-08] MEDS: clonazePAM 1 MG TABLET PO SCH ×4 (08:05→20:23)
[2020-08-08] MEDS: amLODIPine BESYLATE 5 MG TABLET PO SCH (08:06)
[2020-08-08] MEDS: risperiDONE 2 MG TABLET. PO SCH ×2 (08:06→20:23)
[2020-08-08] MEDS: KETOTIFEN FUMARATE 0.025% OPHT SOLUTION BOTTLE. OU SCH ×2 (08:10→20:22)
[2020-08-08] MEDS: NEOMYCIN/BACI/POLY/HC OPHTH OINTMENT 3.5GM TUBE. OU SCH ×2 (09:00→20:22)
[2020-08-08] MEDS: LISINOPRIL 20 MG TABLET PO SCH (09:00)
[2020-08-08] MEDS: MINERAL OIL/PETROLATUM,WHITE OPHTH OINT 3.5GM TUBE. OU SCH (12:31)
[2020-08-08 15:37] VITALS: BP 103/66
[2020-08-08] MEDS: ATORVASTATIN CALCIUM 20 MG TABLET PO SCH (20:22)
--- NOTE | 2020-08-08 22:08 | PDOC ---
Exam Note: Anthony Note: Please also refer to the separate dictated note~for this date of service dictated separately.~Patient seen individually. Discussed the patient with Nursing staff reviewed the chart.~Reviewed interim history and current functioning. Reviewed vital signs,~Labs/ Radiology~and current medications noted below. Continue current treatment with the changes noted in the dictated addendum note Assessment: Vital Signs/I&O: Vital Signs Date Time Temp Pulse Resp B/P (MAP) Pulse Ox O2 Delivery O2 Flow Rate FiO2 08/08/20 15:37 97.4 66 16 103/66 (78) 99 08/08/20 06:22 Room Air I & O 08/07/20 08/07/20 08/08/20 15:00 23:00 07:00 Intake Total 840 ml 480 ml 120 ml Balance 840 ml 480 ml 120 ml Labs: Laboratory Tests Test 08/08/20 07:09 Glucose (Fingerstick) 98 mg/dL (70-99) Current Medications: Meds: Laboratory Tests Test 08/08/20 07:09 Glucose (Fingerstick) 98 mg/dL Current Medications Medications (Trade) Dose Ordered Sig/Davida Route PRN Reason Start Time Stop Time Status Last Admin Dose Admin Acetaminophen (Tylenol) 650 mg PRN Q6HRS PRN PO MILD PAIN / TEMP > 100.3'F 07/10/20 12:30 Multi-Ingredient Ointment (Analgesic [place]) 1 marvel PRN QID PRN TP MUSCLE PAIN 07/10/20 12:30 Al Hydroxide/Mg Hydroxide (Mylanta Plus Xs) 15 ml PRN AFTMEALHC PRN PO DYSPEPSIA 07/10/20 12:30 Cancel Magnesium Hydroxide (Milk Of Magnesia) 2,400 mg PRN QHS PRN PO 2ND CHOICE CONSTIPATION 07/10/20 12:30 Albuterol Sulfate (Ventolin) 2.5 mg PRN Q4HRS PRN IH FOR ASTHMA 07/10/20 15:30 Amlodipine Besylate (Norvasc) 5 mg DAILY PO 07/11/20 09:00 08/08/20 08:06 Aspirin (Aspirin Enteric Coated) 81 mg DAILY08 PO 07/11/20 08:00 08/08/20 08:02 Atorvastatin Calcium (Lipitor) 20 mg QHS PO 07/10/20 21:00 08/08/20 20:22 Clonazepam (KlonoPIN) 2 mg TID PO 07/10/20 21:00 07/20/20 16:15 DC 07/20/20 13:10 Divalproex Sodium (Depakote Er) 250 mg TID PO 07/10/20 21:00 07/18/20 18:41 DC 07/18/20 13:44 Ferrous Sulfate (Feosol) 325 mg BID PO 07/10/20 21:00 08/08/20 20:23 Guaifenesin (Mucinex Er) 600 mg PRN Q12HR PRN PO nasal congestion 07/10/20 15:30 Hydrochlorothiazide (Hydrodiuril) 25 mg DAILYWBKFT PO 07/11/20 08:00 08/08/20 08:02 Ketotifen Fumarate (Zaditor) 1 drop BID OU 07/10/20 21:00 08/08/20 20:22 Loperamide HCl (Imodium) 4 mg PRN DAILY PRN PO FIRST OCCURANCE OF DIARRHEA 07/10/20 15:30 Memantine (Namenda) 10 mg BID PO 07/10/20 21:00 08/08/20 20:23 Metformin HCl (Glucophage) 500 mg DAILYWBKFT PO 07/11/20 08:00 08/08/20 08:05 Paroxetine HCl (Paxil) 40 mg DAILY PO 07/11/20 09:00 07/12/20 11:47 DC 07/12/20 08:10 Polyethylene Glycol (miraLAX) 17 gm PRN DAILY PRN PO 1ST CHOICE CONSTIPATION 07/10/20 15:30 Artificial Tears (Artificial Tears) 1 drop PRN Q1HR PRN OU itchy eyes 07/10/20 15:30 Potassium Chloride (Klor-Con) 10 meq DAILY08 PO 07/11/20 08:00 08/08/20 08:03 Risperidone (RisperDAL) 1 mg BID PO 07/10/20 21:00 07/19/20 11:49 DC 07/19/20 08:52 Senna/Docusate Sodium (Senna Plus) 2 tab PRN BID PRN PO 3RD CHOICE CONSTIPATION 07/10/20 15:30 Calcium Carbonate/ Glycine (Tums) 1,000 mg PRN Q4HRS PRN PO HEARTBURN / GAS, 1ST CHOICE 07/10/20 16:15 Vitamin D (Vitamin D3) 2,000 unit DAILY PO 07/11/20 09:00 08/08/20 08:03 Throat Lozenges (Cepacol Sore Throat Lozenge) 1 danna PRN Q2HR PRN PO SORE THROAT 07/10/20 16:15 Guaifenesin (Robitussin Dm) 10 ml PRN Q4HRS PRN PO COUGH 07/10/20 16:15 Lisinopril (Prinivil) 40 mg DAILY PO 07/11/20 09:00 08/07/20 08:18 Loperamide HCl (Imodium) 2 mg PRN Q1HR PRN PO DIARRHEA 07/10/20 16:30 Al Hydroxide/Mg Hydroxide (Mylanta Plus Xs) 20 ml PRN Q4HRS PRN PO INDIGESTION, 2ND CHOICE 07/10/20 16:30 Multi-Ingred Cream/Lotion/Oil/ Oint (Artificial Tears Eye Ointment) 1 marvel NOON OU 07/11/20 12:00 08/08/20 12:31 Oxybutynin Chloride (Ditropan) 5 mg [id number] PO 07/10/20 21:00 08/08/20 20:22 Olanzapine (ZyPREXA ZYDIS) 2.5 mg PRN Q2HRS PRN PO PSYCHOSIS 07/10/20 20:00 07/22/20 15:52 DC 07/22/20 14:21 Fluvoxamine Maleate (Luvox) 25 mg DAILY PO 07/13/20 09:00 07/14/20 09:05 DC 07/14/20 08:25 Fluvoxamine Maleate (Luvox) 50 mg DAILY PO 07/15/20 09:00 07/16/20 09:05 DC 07/16/20 08:14 Fluvoxamine Maleate (Luvox) 75 mg DAILY PO 07/17/20 09:00 08/01/20 18:48 DC 08/01/20 08:52 Divalproex Sodium (Depakote Er) 250 mg 0900 PO 07/19/20 09:00 07/20/20 16:12 DC 07/20/20 08:05 Divalproex Sodium (Depakote Er) 750 mg QHS PO 07/18/20 21:00 07/20/20 16:12 DC 07/19/20 20:59 Risperidone (RisperDAL) 2 mg BID PO 07/19/20 21:00 07/20/20 16:13 DC 07/20/20 08:06 Divalproex Sodium (Depakote Er) 500 mg 0900 PO 07/21/20 09:00 08/08/20 08:05 Divalproex Sodium (Depakote Er) 1,000 mg QHS PO 07/20/20 21:00 08/08/20 20:23 Risperidone (RisperDAL) 3 mg BID PO 07/20/20 21:00 08/08/20 20:23 Clonazepam (KlonoPIN) 1 mg QID PO 07/20/20 17:00 08/08/20 20:23 Neomycin/ Polymyxin/Bacitr/ Hydrocort (Cortisporin Ophth) 2 marvel BID OU 07/21/20 17:00 08/08/20 20:22 Quetiapine Fumarate (SEROquel) 50 mg TID PO 07/22/20 17:00 07/25/20 13:04 DC 07/25/20 12:28 Quetiapine Fumarate (SEROquel) 75 mg TID PO 07/25/20 14:00 08/08/20 20:23 Quetiapine Fumarate (SEROquel) 50 mg 1X ONCE PO 07/25/20 13:15 07/25/20 13:21 DC 07/25/20 13:24 Fluvoxamine Maleate (Luvox) 100 mg DAILY PO 08/02/20 09:00 08/05/20 08:59 DC 08/04/20 08:40 Fluvoxamine Maleate (Luvox) 150 mg DAILY PO 08/05/20 09:00 08/08/20 08:04 I have reviewed the current psychotropics carefully including drug interactions. Risk benefit ratio favors no change other than as noted in my dictated progress note. Diagnosis: Problems: (1) OCD (obsessive compulsive disorder) (2) Anxiety disorder, unspecified (3) Intellectual disability (4) Psychotic disorder (5) Impulse control disorder, unspecified BRE WYLIE MD Aug 08, 2020 22:08
[2020-08-09 06:19] VITALS: BP 134/82
[2020-08-09] MEDS: clonazePAM 1 MG TABLET PO SCH ×4 (08:36→21:30)
[2020-08-09] MEDS: ASPIRIN ENTERIC COATED 81 MG TABLET.DR. PO SCH (08:36)
[2020-08-09] MEDS: POTASSIUM CHLORIDE 10 MEQ TABLET.ER. PO SCH (08:37)
[2020-08-09] MEDS: amLODIPine BESYLATE 5 MG TABLET PO SCH (08:37)
[2020-08-09] MEDS: QUEtiapine 25 MG TABLET. PO SCH ×3 (08:37→21:29)
[2020-08-09] MEDS: LISINOPRIL 20 MG TABLET PO SCH (08:37)
[2020-08-09] MEDS: OXYBUTYNIN CHLORIDE 5 MG TABLET PO SCH ×3 (08:38→21:30)
[2020-08-09] MEDS: metFORMIN 500 MG TABLET PO SCH (08:38)
[2020-08-09] MEDS: MEMANTINE 10 MG TABLET. PO SCH ×2 (08:38→21:29)
[2020-08-09] MEDS: DIVALPROEX ER 500 MG TAB.ER.24H PO SCH ×2 (08:38→21:29)
[2020-08-09] MEDS: risperiDONE 2 MG TABLET. PO SCH ×2 (08:38→21:30)
[2020-08-09] MEDS: FERROUS SULFATE 325 MG TABLET. PO SCH ×2 (08:38→21:29)
[2020-08-09] MEDS: hydroCHLOROthiazide 25 MG TABLET PO SCH (08:38)
[2020-08-09] MEDS: CHOLECALCIFEROL (VITAMIN D3) 1,000 UNIT TABLET PO SCH (08:39)
[2020-08-09] MEDS: NEOMYCIN/BACI/POLY/HC OPHTH OINTMENT 3.5GM TUBE. OU SCH ×2 (08:39→21:29)
[2020-08-09] MEDS: KETOTIFEN FUMARATE 0.025% OPHT SOLUTION BOTTLE. OU SCH ×2 (08:39→21:29)
[2020-08-09] MEDS: MINERAL OIL/PETROLATUM,WHITE OPHTH OINT 3.5GM TUBE. OU SCH (12:50)
[2020-08-09 16:02] VITALS: BP 100/67
[2020-08-09] MEDS: ATORVASTATIN CALCIUM 20 MG TABLET PO SCH (21:29)
--- NOTE | 2020-08-09 21:59 | PDOC ---
Exam Note: Anthony Note: Please also refer to the separate dictated note~for this date of service dictated separately.~Patient seen individually. Discussed the patient with Nursing staff reviewed the chart.~Reviewed interim history and current functioning. Reviewed vital signs,~Labs/ Radiology~and current medications noted below. Continue current treatment with the changes noted in the dictated addendum note Assessment: Vital Signs/I&O: Vital Signs Date Time Temp Pulse Resp B/P (MAP) Pulse Ox O2 Delivery O2 Flow Rate FiO2 08/09/20 16:02 97.8 63 20 100/67 (78) 98 08/09/20 06:19 Room Air I & O 08/08/20 08/08/20 08/09/20 15:00 23:00 07:00 Intake Total 960 ml 480 ml Balance 960 ml 480 ml Labs: Laboratory Tests Test 08/09/20 07:51 Glucose (Fingerstick) 81 mg/dL (70-99) Current Medications: Meds: Laboratory Tests Test 08/09/20 07:51 Glucose (Fingerstick) 81 mg/dL Current Medications Medications (Trade) Dose Ordered Sig/Davida Route PRN Reason Start Time Stop Time Status Last Admin Dose Admin Acetaminophen (Tylenol) 650 mg PRN Q6HRS PRN PO MILD PAIN / TEMP > 100.3'F 07/10/20 12:30 Multi-Ingredient Ointment (Analgesic [place]) 1 marvel PRN QID PRN TP MUSCLE PAIN 07/10/20 12:30 Al Hydroxide/Mg Hydroxide (Mylanta Plus Xs) 15 ml PRN AFTMEALHC PRN PO DYSPEPSIA 07/10/20 12:30 Cancel Magnesium Hydroxide (Milk Of Magnesia) 2,400 mg PRN QHS PRN PO 2ND CHOICE CONSTIPATION 07/10/20 12:30 Albuterol Sulfate (Ventolin) 2.5 mg PRN Q4HRS PRN IH FOR ASTHMA 07/10/20 15:30 Amlodipine Besylate (Norvasc) 5 mg DAILY PO 07/11/20 09:00 08/09/20 08:37 Aspirin (Aspirin Enteric Coated) 81 mg DAILY08 PO 07/11/20 08:00 08/09/20 08:36 Atorvastatin Calcium (Lipitor) 20 mg QHS PO 07/10/20 21:00 08/09/20 21:29 Clonazepam (KlonoPIN) 2 mg TID PO 07/10/20 21:00 07/20/20 16:15 DC 07/20/20 13:10 Divalproex Sodium (Depakote Er) 250 mg TID PO 07/10/20 21:00 07/18/20 18:41 DC 07/18/20 13:44 Ferrous Sulfate (Feosol) 325 mg BID PO 07/10/20 21:00 08/09/20 21:29 Guaifenesin (Mucinex Er) 600 mg PRN Q12HR PRN PO nasal congestion 07/10/20 15:30 Hydrochlorothiazide (Hydrodiuril) 25 mg DAILYWBKFT PO 07/11/20 08:00 08/09/20 08:38 Ketotifen Fumarate (Zaditor) 1 drop BID OU 07/10/20 21:00 08/09/20 21:29 Loperamide HCl (Imodium) 4 mg PRN DAILY PRN PO FIRST OCCURANCE OF DIARRHEA 07/10/20 15:30 Memantine (Namenda) 10 mg BID PO 07/10/20 21:00 08/09/20 21:29 Metformin HCl (Glucophage) 500 mg DAILYWBKFT PO 07/11/20 08:00 08/09/20 08:38 Paroxetine HCl (Paxil) 40 mg DAILY PO 07/11/20 09:00 07/12/20 11:47 DC 07/12/20 08:10 Polyethylene Glycol (miraLAX) 17 gm PRN DAILY PRN PO 1ST CHOICE CONSTIPATION 07/10/20 15:30 Artificial Tears (Artificial Tears) 1 drop PRN Q1HR PRN OU itchy eyes 07/10/20 15:30 Potassium Chloride (Klor-Con) 10 meq DAILY08 PO 07/11/20 08:00 08/09/20 08:37 Risperidone (RisperDAL) 1 mg BID PO 07/10/20 21:00 07/19/20 11:49 DC 07/19/20 08:52 Senna/Docusate Sodium (Senna Plus) 2 tab PRN BID PRN PO 3RD CHOICE CONSTIPATION 07/10/20 15:30 Calcium Carbonate/ Glycine (Tums) 1,000 mg PRN Q4HRS PRN PO HEARTBURN / GAS, 1ST CHOICE 07/10/20 16:15 Vitamin D (Vitamin D3) 2,000 unit DAILY PO 07/11/20 09:00 08/09/20 08:39 Throat Lozenges (Cepacol Sore Throat Lozenge) 1 danna PRN Q2HR PRN PO SORE THROAT 07/10/20 16:15 Guaifenesin (Robitussin Dm) 10 ml PRN Q4HRS PRN PO COUGH 07/10/20 16:15 Lisinopril (Prinivil) 40 mg DAILY PO 07/11/20 09:00 08/09/20 08:37 Loperamide HCl (Imodium) 2 mg PRN Q1HR PRN PO DIARRHEA 07/10/20 16:30 Al Hydroxide/Mg Hydroxide (Mylanta Plus Xs) 20 ml PRN Q4HRS PRN PO INDIGESTION, 2ND CHOICE 07/10/20 16:30 Multi-Ingred Cream/Lotion/Oil/ Oint (Artificial Tears Eye Ointment) 1 marvel NOON OU 07/11/20 12:00 08/09/20 12:50 Oxybutynin Chloride (Ditropan) 5 mg [id number] PO 07/10/20 21:00 08/09/20 21:30 Olanzapine (ZyPREXA ZYDIS) 2.5 mg PRN Q2HRS PRN PO PSYCHOSIS 07/10/20 20:00 07/22/20 15:52 DC 07/22/20 14:21 Fluvoxamine Maleate (Luvox) 25 mg DAILY PO 07/13/20 09:00 07/14/20 09:05 DC 07/14/20 08:25 Fluvoxamine Maleate (Luvox) 50 mg DAILY PO 07/15/20 09:00 07/16/20 09:05 DC 07/16/20 08:14 Fluvoxamine Maleate (Luvox) 75 mg DAILY PO 07/17/20 09:00 08/01/20 18:48 DC 08/01/20 08:52 Divalproex Sodium (Depakote Er) 250 mg 0900 PO 07/19/20 09:00 07/20/20 16:12 DC 07/20/20 08:05 Divalproex Sodium (Depakote Er) 750 mg QHS PO 07/18/20 21:00 07/20/20 16:12 DC 07/19/20 20:59 Risperidone (RisperDAL) 2 mg BID PO 07/19/20 21:00 07/20/20 16:13 DC 07/20/20 08:06 Divalproex Sodium (Depakote Er) 500 mg 0900 PO 07/21/20 09:00 08/09/20 08:38 Divalproex Sodium (Depakote Er) 1,000 mg QHS PO 07/20/20 21:00 08/09/20 21:29 Risperidone (RisperDAL) 3 mg BID PO 07/20/20 21:00 08/09/20 21:30 Clonazepam (KlonoPIN) 1 mg QID PO 07/20/20 17:00 08/09/20 21:30 Neomycin/ Polymyxin/Bacitr/ Hydrocort (Cortisporin Ophth) 2 marvel BID OU 07/21/20 17:00 08/09/20 21:29 Quetiapine Fumarate (SEROquel) 50 mg TID PO 07/22/20 17:00 07/25/20 13:04 DC 07/25/20 12:28 Quetiapine Fumarate (SEROquel) 75 mg TID PO 07/25/20 14:00 08/09/20 21:29 Quetiapine Fumarate (SEROquel) 50 mg 1X ONCE PO 07/25/20 13:15 07/25/20 13:21 DC 07/25/20 13:24 Fluvoxamine Maleate (Luvox) 100 mg DAILY PO 08/02/20 09:00 08/05/20 08:59 DC 08/04/20 08:40 Fluvoxamine Maleate (Luvox) 150 mg DAILY PO 08/05/20 09:00 08/09/20 08:36 I have reviewed the current psychotropics carefully including drug interactions. Risk benefit ratio favors no change other than as noted in my dictated progress note. Diagnosis: Problems: (1) OCD (obsessive compulsive disorder) (2) Anxiety disorder, unspecified (3) Intellectual disability (4) Psychotic disorder (5) Impulse control disorder, unspecified BRE WYLIE MD Aug 09, 2020 21:59
[2020-08-10 06:14] VITALS: BP 123/79
[2020-08-10] MEDS: ASPIRIN ENTERIC COATED 81 MG TABLET.DR. PO SCH (07:58)
[2020-08-10] MEDS: POTASSIUM CHLORIDE 10 MEQ TABLET.ER. PO SCH (07:58)
[2020-08-10] MEDS: FERROUS SULFATE 325 MG TABLET. PO SCH (07:59)
[2020-08-10] MEDS: CHOLECALCIFEROL (VITAMIN D3) 1,000 UNIT TABLET PO SCH (07:59)
[2020-08-10] MEDS: metFORMIN 500 MG TABLET PO SCH (07:59)
[2020-08-10] MEDS: clonazePAM 1 MG TABLET PO SCH ×2 (07:59→13:24)
[2020-08-10] MEDS: MEMANTINE 10 MG TABLET. PO SCH (08:00)
[2020-08-10] MEDS: risperiDONE 2 MG TABLET. PO SCH (08:00)
[2020-08-10] MEDS: OXYBUTYNIN CHLORIDE 5 MG TABLET PO SCH ×2 (08:00→13:24)
[2020-08-10] MEDS: hydroCHLOROthiazide 25 MG TABLET PO SCH (08:00)
[2020-08-10] MEDS: QUEtiapine 25 MG TABLET. PO SCH ×2 (08:00→13:24)
[2020-08-10 08:01] VITALS: BP 123/79
[2020-08-10] MEDS: KETOTIFEN FUMARATE 0.025% OPHT SOLUTION BOTTLE. OU SCH (08:01)
[2020-08-10] MEDS: amLODIPine BESYLATE 5 MG TABLET PO SCH (08:01)
[2020-08-10] MEDS: LISINOPRIL 20 MG TABLET PO SCH (08:01)
[2020-08-10] MEDS: DIVALPROEX ER 500 MG TAB.ER.24H PO SCH (08:01)
[2020-08-10] MEDS: NEOMYCIN/BACI/POLY/HC OPHTH OINTMENT 3.5GM TUBE. OU SCH (08:02)
--- NOTE | 2020-08-10 09:33 | PDOC ---
Exam Note: Anthony Note: This note is a late entry for 08/08/2020 covers elements not covered in my initial note. Subjective: The patient was seen individually in the evening of 08/08/2020 with Meron IRWIN, discussed and reviewed the chart. He slept 5 hours previous night. He wants to be discharged but transportation could not be obtained. Obsessiveness and repetitive thinking is better but he followed me around the unit asking same questions that he does not want to return to [facility] in [place] and that he was praying and reading the Bible so that he goes to an alternate placement. Review of Systems: No CV, , pulmonary, eye, ENT system symptoms on review. Mental Status Exam: The patient is oriented to himself and situation. Speech repetitive, coherent. Abstraction fair. Computation impaired. Language function intact. Attention span short. Mood and affect improved. Laboratory Data: Reviewed. Impression: Psychotic disorder unspecified. Obsessive-compulsive disorder. Intellectual disability. Probable bipolar disorder unspecified. Rest unchanged. Plan: No change from initial note. Assessment: Vital Signs/I&O: Vital Signs Date Time Temp Pulse Resp B/P (MAP) Pulse Ox O2 Delivery O2 Flow Rate FiO2 08/10/20 08:01 64 123/79 08/10/20 06:14 97.0 12 97 08/09/20 06:19 Room Air I & O 08/09/20 08/09/20 08/10/20 14:59 22:59 06:59 Intake Total 480 ml 720 ml Balance 480 ml 720 ml Labs: Laboratory Tests Test 08/10/20 07:45 Glucose (Fingerstick) 88 mg/dL (70-99) Current Medications: Meds: Laboratory Tests Test 08/10/20 07:45 Glucose (Fingerstick) 88 mg/dL Current Medications Medications (Trade) Dose Ordered Sig/Davida Route PRN Reason Start Time Stop Time Status Last Admin Dose Admin Acetaminophen (Tylenol) 650 mg PRN Q6HRS PRN PO MILD PAIN / TEMP > 100.3'F 07/10/20 12:30 Multi-Ingredient Ointment (Analgesic [place]) 1 marvel PRN QID PRN TP MUSCLE PAIN 07/10/20 12:30 Al Hydroxide/Mg Hydroxide (Mylanta Plus Xs) 15 ml PRN AFTMEALHC PRN PO DYSPEPSIA 07/10/20 12:30 Cancel Magnesium Hydroxide (Milk Of Magnesia) 2,400 mg PRN QHS PRN PO 2ND CHOICE CONSTIPATION 07/10/20 12:30 Albuterol Sulfate (Ventolin) 2.5 mg PRN Q4HRS PRN IH FOR ASTHMA 07/10/20 15:30 Amlodipine Besylate (Norvasc) 5 mg DAILY PO 07/11/20 09:00 08/10/20 08:01 Aspirin (Aspirin Enteric Coated) 81 mg DAILY08 PO 07/11/20 08:00 08/10/20 07:58 Atorvastatin Calcium (Lipitor) 20 mg QHS PO 07/10/20 21:00 08/09/20 21:29 Clonazepam (KlonoPIN) 2 mg TID PO 07/10/20 21:00 07/20/20 16:15 DC 07/20/20 13:10 Divalproex Sodium (Depakote Er) 250 mg TID PO 07/10/20 21:00 07/18/20 18:41 DC 07/18/20 13:44 Ferrous Sulfate (Feosol) 325 mg BID PO 07/10/20 21:00 08/10/20 07:59 Guaifenesin (Mucinex Er) 600 mg PRN Q12HR PRN PO nasal congestion 07/10/20 15:30 Hydrochlorothiazide (Hydrodiuril) 25 mg DAILYWBKFT PO 07/11/20 08:00 08/10/20 08:00 Ketotifen Fumarate (Zaditor) 1 drop BID OU 07/10/20 21:00 08/10/20 08:01 Loperamide HCl (Imodium) 4 mg PRN DAILY PRN PO FIRST OCCURANCE OF DIARRHEA 07/10/20 15:30 Memantine (Namenda) 10 mg BID PO 07/10/20 21:00 08/10/20 08:00 Metformin HCl (Glucophage) 500 mg DAILYWBKFT PO 07/11/20 08:00 08/10/20 07:59 Paroxetine HCl (Paxil) 40 mg DAILY PO 07/11/20 09:00 07/12/20 11:47 DC 07/12/20 08:10 Polyethylene Glycol (miraLAX) 17 gm PRN DAILY PRN PO 1ST CHOICE CONSTIPATION 07/10/20 15:30 Artificial Tears (Artificial Tears) 1 drop PRN Q1HR PRN OU itchy eyes 07/10/20 15:30 Potassium Chloride (Klor-Con) 10 meq DAILY08 PO 07/11/20 08:00 08/10/20 07:58 Risperidone (RisperDAL) 1 mg BID PO 07/10/20 21:00 07/19/20 11:49 DC 07/19/20 08:52 Senna/Docusate Sodium (Senna Plus) 2 tab PRN BID PRN PO 3RD CHOICE CONSTIPATION 07/10/20 15:30 Calcium Carbonate/ Glycine (Tums) 1,000 mg PRN Q4HRS PRN PO HEARTBURN / GAS, 1ST CHOICE 07/10/20 16:15 Vitamin D (Vitamin D3) 2,000 unit DAILY PO 07/11/20 09:00 08/10/20 07:59 Throat Lozenges (Cepacol Sore Throat Lozenge) 1 danna PRN Q2HR PRN PO SORE THROAT 07/10/20 16:15 Guaifenesin (Robitussin Dm) 10 ml PRN Q4HRS PRN PO COUGH 07/10/20 16:15 Lisinopril (Prinivil) 40 mg DAILY PO 07/11/20 09:00 08/10/20 08:01 Loperamide HCl (Imodium) 2 mg PRN Q1HR PRN PO DIARRHEA 07/10/20 16:30 Al Hydroxide/Mg Hydroxide (Mylanta Plus Xs) 20 ml PRN Q4HRS PRN PO INDIGESTION, 2ND CHOICE 07/10/20 16:30 Multi-Ingred Cream/Lotion/Oil/ Oint (Artificial Tears Eye Ointment) 1 marvel NOON OU 07/11/20 12:00 08/09/20 12:50 Oxybutynin Chloride (Ditropan) 5 mg [id number] PO 07/10/20 21:00 08/10/20 08:00 Olanzapine (ZyPREXA ZYDIS) 2.5 mg PRN Q2HRS PRN PO PSYCHOSIS 07/10/20 20:00 07/22/20 15:52 DC 07/22/20 14:21 Fluvoxamine Maleate (Luvox) 25 mg DAILY PO 07/13/20 09:00 07/14/20 09:05 DC 07/14/20 08:25 Fluvoxamine Maleate (Luvox) 50 mg DAILY PO 07/15/20 09:00 07/16/20 09:05 DC 07/16/20 08:14 Fluvoxamine Maleate (Luvox) 75 mg DAILY PO 07/17/20 09:00 08/01/20 18:48 DC 08/01/20 08:52 Divalproex Sodium (Depakote Er) 250 mg 0900 PO 07/19/20 09:00 07/20/20 16:12 DC 07/20/20 08:05 Divalproex Sodium (Depakote Er) 750 mg QHS PO 07/18/20 21:00 07/20/20 16:12 DC 07/19/20 20:59 Risperidone (RisperDAL) 2 mg BID PO 07/19/20 21:00 07/20/20 16:13 DC 07/20/20 08:06 Divalproex Sodium (Depakote Er) 500 mg 0900 PO 07/21/20 09:00 08/10/20 08:01 Divalproex Sodium (Depakote Er) 1,000 mg QHS PO 07/20/20 21:00 08/09/20 21:29 Risperidone (RisperDAL) 3 mg BID PO 07/20/20 21:00 08/10/20 08:00 Clonazepam (KlonoPIN) 1 mg QID PO 07/20/20 17:00 08/10/20 07:59 Neomycin/ Polymyxin/Bacitr/ Hydrocort (Cortisporin Ophth) 2 marvel BID OU 07/21/20 17:00 08/10/20 08:02 Quetiapine Fumarate (SEROquel) 50 mg TID PO 07/22/20 17:00 07/25/20 13:04 DC 07/25/20 12:28 Quetiapine Fumarate (SEROquel) 75 mg TID PO 07/25/20 14:00 08/10/20 08:00 Quetiapine Fumarate (SEROquel) 50 mg 1X ONCE PO 07/25/20 13:15 07/25/20 13:21 DC 07/25/20 13:24 Fluvoxamine Maleate (Luvox) 100 mg DAILY PO 08/02/20 09:00 08/05/20 08:59 DC 08/04/20 08:40 Fluvoxamine Maleate (Luvox) 150 mg DAILY PO 08/05/20 09:00 08/10/20 07:59 I have reviewed the current psychotropics carefully including drug interactions. Risk benefit ratio favors no change other than as noted in my dictated progress note. Diagnosis: Problems: (1) OCD (obsessive compulsive disorder) (2) Anxiety disorder, unspecified (3) Intellectual disability (4) Psychotic disorder (5) Impulse control disorder, unspecified BRE WYLIE MD Aug 10, 2020 09:33
--- NOTE | 2020-08-10 09:53 | PDOC ---
Exam Note: Anthony Note: This note is a late entry for 08/09/2020 covers elements not covered in my initial note. Subjective: The patient was reviewed in the morning of 08/09/2020 for a treatment team meeting with Yaima Webb, Serina Christianson and Kamila (social media content manager), Keke, activity therapy and Henry IRWIN, discussed and reviewed the chart. He slept 7-1/2 hours previous night. Overall the patient is less obsessive, less repetitive, still awaiting transportation to long-term. Review of Systems: No CV, , pulmonary, eye, ENT system symptoms on review. Mental Status Exam: The patient is oriented to himself and situation. He followed me around the unit, fixated on not wanting to go back to his long-term and I addressed with him at length. Speech repetitive, coherent. Abstraction fair. Computation impaired. Language function intact. Attention span short. Mood and affect remains somewhat less obsessive. Laboratory Data: Reviewed. Impression: Psychotic disorder unspecified. Obsessive-compulsive disorder. Intellectual disability. Probable bipolar disorder unspecified. Rest unchanged. Plan: No change from initial note. Assessment: Vital Signs/I&O: Vital Signs Date Time Temp Pulse Resp B/P (MAP) Pulse Ox O2 Delivery O2 Flow Rate FiO2 08/10/20 08:01 64 123/79 08/10/20 06:14 97.0 12 97 08/09/20 06:19 Room Air I & O 08/09/20 08/09/20 08/10/20 15:00 23:00 07:00 Intake Total 480 ml 720 ml Balance 480 ml 720 ml Labs: Laboratory Tests Test 08/10/20 07:45 Glucose (Fingerstick) 88 mg/dL (70-99) Current Medications: Meds: Laboratory Tests Test 08/10/20 07:45 Glucose (Fingerstick) 88 mg/dL Current Medications Medications (Trade) Dose Ordered Sig/Davida Route PRN Reason Start Time Stop Time Status Last Admin Dose Admin Acetaminophen (Tylenol) 650 mg PRN Q6HRS PRN PO MILD PAIN / TEMP > 100.3'F 07/10/20 12:30 Multi-Ingredient Ointment (Analgesic [place]) 1 marvel PRN QID PRN TP MUSCLE PAIN 07/10/20 12:30 Al Hydroxide/Mg Hydroxide (Mylanta Plus Xs) 15 ml PRN AFTMEALHC PRN PO DYSPEPSIA 07/10/20 12:30 Cancel Magnesium Hydroxide (Milk Of Magnesia) 2,400 mg PRN QHS PRN PO 2ND CHOICE CONSTIPATION 07/10/20 12:30 Albuterol Sulfate (Ventolin) 2.5 mg PRN Q4HRS PRN IH FOR ASTHMA 07/10/20 15:30 Amlodipine Besylate (Norvasc) 5 mg DAILY PO 07/11/20 09:00 08/10/20 08:01 Aspirin (Aspirin Enteric Coated) 81 mg DAILY08 PO 07/11/20 08:00 08/10/20 07:58 Atorvastatin Calcium (Lipitor) 20 mg QHS PO 07/10/20 21:00 08/09/20 21:29 Clonazepam (KlonoPIN) 2 mg TID PO 07/10/20 21:00 07/20/20 16:15 DC 07/20/20 13:10 Divalproex Sodium (Depakote Er) 250 mg TID PO 07/10/20 21:00 07/18/20 18:41 DC 07/18/20 13:44 Ferrous Sulfate (Feosol) 325 mg BID PO 07/10/20 21:00 08/10/20 07:59 Guaifenesin (Mucinex Er) 600 mg PRN Q12HR PRN PO nasal congestion 07/10/20 15:30 Hydrochlorothiazide (Hydrodiuril) 25 mg DAILYWBKFT PO 07/11/20 08:00 08/10/20 08:00 Ketotifen Fumarate (Zaditor) 1 drop BID OU 07/10/20 21:00 08/10/20 08:01 Loperamide HCl (Imodium) 4 mg PRN DAILY PRN PO FIRST OCCURANCE OF DIARRHEA 07/10/20 15:30 Memantine (Namenda) 10 mg BID PO 07/10/20 21:00 08/10/20 08:00 Metformin HCl (Glucophage) 500 mg DAILYWBKFT PO 07/11/20 08:00 08/10/20 07:59 Paroxetine HCl (Paxil) 40 mg DAILY PO 07/11/20 09:00 07/12/20 11:47 DC 07/12/20 08:10 Polyethylene Glycol (miraLAX) 17 gm PRN DAILY PRN PO 1ST CHOICE CONSTIPATION 07/10/20 15:30 Artificial Tears (Artificial Tears) 1 drop PRN Q1HR PRN OU itchy eyes 07/10/20 15:30 Potassium Chloride (Klor-Con) 10 meq DAILY08 PO 07/11/20 08:00 08/10/20 07:58 Risperidone (RisperDAL) 1 mg BID PO 07/10/20 21:00 07/19/20 11:49 DC 07/19/20 08:52 Senna/Docusate Sodium (Senna Plus) 2 tab PRN BID PRN PO 3RD CHOICE CONSTIPATION 07/10/20 15:30 Calcium Carbonate/ Glycine (Tums) 1,000 mg PRN Q4HRS PRN PO HEARTBURN / GAS, 1ST CHOICE 07/10/20 16:15 Vitamin D (Vitamin D3) 2,000 unit DAILY PO 07/11/20 09:00 08/10/20 07:59 Throat Lozenges (Cepacol Sore Throat Lozenge) 1 danna PRN Q2HR PRN PO SORE THROAT 07/10/20 16:15 Guaifenesin (Robitussin Dm) 10 ml PRN Q4HRS PRN PO COUGH 07/10/20 16:15 Lisinopril (Prinivil) 40 mg DAILY PO 07/11/20 09:00 08/10/20 08:01 Loperamide HCl (Imodium) 2 mg PRN Q1HR PRN PO DIARRHEA 07/10/20 16:30 Al Hydroxide/Mg Hydroxide (Mylanta Plus Xs) 20 ml PRN Q4HRS PRN PO INDIGESTION, 2ND CHOICE 07/10/20 16:30 Multi-Ingred Cream/Lotion/Oil/ Oint (Artificial Tears Eye Ointment) 1 marvel NOON OU 07/11/20 12:00 08/09/20 12:50 Oxybutynin Chloride (Ditropan) 5 mg [id number] PO 07/10/20 21:00 08/10/20 08:00 Olanzapine (ZyPREXA ZYDIS) 2.5 mg PRN Q2HRS PRN PO PSYCHOSIS 07/10/20 20:00 07/22/20 15:52 DC 07/22/20 14:21 Fluvoxamine Maleate (Luvox) 25 mg DAILY PO 07/13/20 09:00 07/14/20 09:05 DC 07/14/20 08:25 Fluvoxamine Maleate (Luvox) 50 mg DAILY PO 07/15/20 09:00 07/16/20 09:05 DC 07/16/20 08:14 Fluvoxamine Maleate (Luvox) 75 mg DAILY PO 07/17/20 09:00 08/01/20 18:48 DC 08/01/20 08:52 Divalproex Sodium (Depakote Er) 250 mg 0900 PO 07/19/20 09:00 07/20/20 16:12 DC 07/20/20 08:05 Divalproex Sodium (Depakote Er) 750 mg QHS PO 07/18/20 21:00 07/20/20 16:12 DC 07/19/20 20:59 Risperidone (RisperDAL) 2 mg BID PO 07/19/20 21:00 07/20/20 16:13 DC 07/20/20 08:06 Divalproex Sodium (Depakote Er) 500 mg 0900 PO 07/21/20 09:00 08/10/20 08:01 Divalproex Sodium (Depakote Er) 1,000 mg QHS PO 07/20/20 21:00 08/09/20 21:29 Risperidone (RisperDAL) 3 mg BID PO 07/20/20 21:00 08/10/20 08:00 Clonazepam (KlonoPIN) 1 mg QID PO 07/20/20 17:00 08/10/20 07:59 Neomycin/ Polymyxin/Bacitr/ Hydrocort (Cortisporin Ophth) 2 marvel BID OU 07/21/20 17:00 08/10/20 08:02 Quetiapine Fumarate (SEROquel) 50 mg TID PO 07/22/20 17:00 07/25/20 13:04 DC 07/25/20 12:28 Quetiapine Fumarate (SEROquel) 75 mg TID PO 07/25/20 14:00 08/10/20 08:00 Quetiapine Fumarate (SEROquel) 50 mg 1X ONCE PO 07/25/20 13:15 07/25/20 13:21 DC 07/25/20 13:24 Fluvoxamine Maleate (Luvox) 100 mg DAILY PO 08/02/20 09:00 08/05/20 08:59 DC 08/04/20 08:40 Fluvoxamine Maleate (Luvox) 150 mg DAILY PO 08/05/20 09:00 08/10/20 07:59 I have reviewed the current psychotropics carefully including drug interactions. Risk benefit ratio favors no change other than as noted in my dictated progress note. Diagnosis: Problems: (1) OCD (obsessive compulsive disorder) (2) Anxiety disorder, unspecified (3) Intellectual disability (4) Psychotic disorder (5) Impulse control disorder, unspecified BRE WYLIE MD Aug 10, 2020 09:53
[2020-08-10] MEDS: MINERAL OIL/PETROLATUM,WHITE OPHTH OINT 3.5GM TUBE. OU SCH (12:00)
--- NOTE | 2020-08-10 22:08 | PDOC ---
Exam Note: Anthony Note: Please also refer to the separate dictated note~for this date of service dictated separately.~Patient seen individually. Discussed the patient with Nursing staff reviewed the chart.~Reviewed interim history and current functioning. Reviewed vital signs,~Labs/ Radiology~and current medications noted below. Continue current treatment with the changes noted in the dictated addendum note Assessment: Vital Signs/I&O: Vital Signs Date Time Temp Pulse Resp B/P (MAP) Pulse Ox O2 Delivery O2 Flow Rate FiO2 08/10/20 08:01 64 123/79 08/10/20 06:14 97.0 12 97 08/09/20 06:19 Room Air I & O 08/09/20 08/09/20 08/10/20 15:00 23:00 07:00 Intake Total 480 ml 720 ml Balance 480 ml 720 ml Labs: Laboratory Tests Test 08/10/20 07:45 Glucose (Fingerstick) 88 mg/dL (70-99) Current Medications: Meds: Laboratory Tests Test 08/10/20 07:45 Glucose (Fingerstick) 88 mg/dL Current Medications Medications (Trade) Dose Ordered Sig/Davida Route PRN Reason Start Time Stop Time Status Last Admin Dose Admin Acetaminophen (Tylenol) 650 mg PRN Q6HRS PRN PO MILD PAIN / TEMP > 100.3'F 07/10/20 12:30 08/10/20 15:25 DC Multi-Ingredient Ointment (Analgesic Ellsworth) 1 marvel PRN QID PRN TP MUSCLE PAIN 07/10/20 12:30 08/10/20 15:25 DC Al Hydroxide/Mg Hydroxide (Mylanta Plus Xs) 15 ml PRN AFTMEALHC PRN PO DYSPEPSIA 07/10/20 12:30 Cancel Magnesium Hydroxide (Milk Of Magnesia) 2,400 mg PRN QHS PRN PO 2ND CHOICE CONSTIPATION 07/10/20 12:30 08/10/20 15:25 DC Albuterol Sulfate (Ventolin) 2.5 mg PRN Q4HRS PRN IH FOR ASTHMA 07/10/20 15:30 08/10/20 15:25 DC Amlodipine Besylate (Norvasc) 5 mg DAILY PO 07/11/20 09:00 08/10/20 15:25 DC 08/10/20 08:01 Aspirin (Aspirin Enteric Coated) 81 mg DAILY08 PO 07/11/20 08:00 08/10/20 15:25 DC 08/10/20 07:58 Atorvastatin Calcium (Lipitor) 20 mg QHS PO 07/10/20 21:00 08/10/20 15:25 DC 08/09/20 21:29 Clonazepam (KlonoPIN) 2 mg TID PO 07/10/20 21:00 07/20/20 16:15 DC 07/20/20 13:10 Divalproex Sodium (Depakote Er) 250 mg TID PO 07/10/20 21:00 07/18/20 18:41 DC 07/18/20 13:44 Ferrous Sulfate (Feosol) 325 mg BID PO 07/10/20 21:00 08/10/20 15:25 DC 08/10/20 07:59 Guaifenesin (Mucinex Er) 600 mg PRN Q12HR PRN PO nasal congestion 07/10/20 15:30 08/10/20 15:25 DC Hydrochlorothiazide (Hydrodiuril) 25 mg DAILYWBKFT PO 07/11/20 08:00 08/10/20 15:25 DC 08/10/20 08:00 Ketotifen Fumarate (Zaditor) 1 drop BID OU 07/10/20 21:00 08/10/20 15:25 DC 08/10/20 08:01 Loperamide HCl (Imodium) 4 mg PRN DAILY PRN PO FIRST OCCURANCE OF DIARRHEA 07/10/20 15:30 08/10/20 15:25 DC Memantine (Namenda) 10 mg BID PO 07/10/20 21:00 08/10/20 15:25 DC 08/10/20 08:00 Metformin HCl (Glucophage) 500 mg DAILYWBKFT PO 07/11/20 08:00 08/10/20 15:25 DC 08/10/20 07:59 Paroxetine HCl (Paxil) 40 mg DAILY PO 07/11/20 09:00 07/12/20 11:47 DC 07/12/20 08:10 Polyethylene Glycol (miraLAX) 17 gm PRN DAILY PRN PO 1ST CHOICE CONSTIPATION 07/10/20 15:30 08/10/20 15:25 DC Artificial Tears (Artificial Tears) 1 drop PRN Q1HR PRN OU itchy eyes 07/10/20 15:30 6/4/21 15:25 DC Potassium Chloride (Klor-Con) 10 meq DAILY08 PO 07/11/20 08:00 08/10/20 15:25 DC 08/10/20 07:58 Risperidone (RisperDAL) 1 mg BID PO 07/10/20 21:00 07/19/20 11:49 DC 07/19/20 08:52 Senna/Docusate Sodium (Senna Plus) 2 tab PRN BID PRN PO 3RD CHOICE CONSTIPATION 07/10/20 15:30 08/10/20 15:25 DC Calcium Carbonate/ Glycine (Tums) 1,000 mg PRN Q4HRS PRN PO HEARTBURN / GAS, 1ST CHOICE 07/10/20 16:15 08/10/20 15:25 DC Vitamin D (Vitamin D3) 2,000 unit DAILY PO 07/11/20 09:00 08/10/20 15:25 DC 08/10/20 07:59 Throat Lozenges (Cepacol Sore Throat Lozenge) 1 danna PRN Q2HR PRN PO SORE THROAT 07/10/20 16:15 08/10/20 15:25 DC Guaifenesin (Robitussin Dm) 10 ml PRN Q4HRS PRN PO COUGH 07/10/20 16:15 08/10/20 15:25 DC Lisinopril (Prinivil) 40 mg DAILY PO 07/11/20 09:00 08/10/20 15:25 DC 08/10/20 08:01 Loperamide HCl (Imodium) 2 mg PRN Q1HR PRN PO DIARRHEA 07/10/20 16:30 08/10/20 15:25 DC Al Hydroxide/Mg Hydroxide (Mylanta Plus Xs) 20 ml PRN Q4HRS PRN PO INDIGESTION, 2ND CHOICE 07/10/20 16:30 08/10/20 15:25 DC Multi-Ingred Cream/Lotion/Oil/ Oint (Artificial Tears Eye Ointment) 1 marvel NOON OU 07/11/20 12:00 08/10/20 15:25 DC 08/10/20 12:00 Oxybutynin Chloride (Ditropan) 5 mg CYP968 PO 07/10/20 21:00 08/10/20 15:25 DC 08/10/20 13:24 Olanzapine (ZyPREXA ZYDIS) 2.5 mg PRN Q2HRS PRN PO PSYCHOSIS 07/10/20 20:00 07/22/20 15:52 DC 07/22/20 14:21 Fluvoxamine Maleate (Luvox) 25 mg DAILY PO 07/13/20 09:00 07/14/20 09:05 DC 07/14/20 08:25 Fluvoxamine Maleate (Luvox) 50 mg DAILY PO 07/15/20 09:00 07/16/20 09:05 DC 07/16/20 08:14 Fluvoxamine Maleate (Luvox) 75 mg DAILY PO 07/17/20 09:00 08/01/20 18:48 DC 08/01/20 08:52 Divalproex Sodium (Depakote Er) 250 mg 0900 PO 07/19/20 09:00 07/20/20 16:12 DC 07/20/20 08:05 Divalproex Sodium (Depakote Er) 750 mg QHS PO 07/18/20 21:00 07/20/20 16:12 DC 07/19/20 20:59 Risperidone (RisperDAL) 2 mg BID PO 07/19/20 21:00 07/20/20 16:13 DC 07/20/20 08:06 Divalproex Sodium (Depakote Er) 500 mg 0900 PO 07/21/20 09:00 08/10/20 15:25 DC 08/10/20 08:01 Divalproex Sodium (Depakote Er) 1,000 mg QHS PO 07/20/20 21:00 08/10/20 15:25 DC 08/09/20 21:29 Risperidone (RisperDAL) 3 mg BID PO 07/20/20 21:00 08/10/20 15:25 DC 08/10/20 08:00 Clonazepam (KlonoPIN) 1 mg QID PO 07/20/20 17:00 08/10/20 15:25 DC 08/10/20 13:24 Neomycin/ Polymyxin/Bacitr/ Hydrocort (Cortisporin Ophth) 2 marvel BID OU 07/21/20 17:00 08/10/20 15:25 DC 08/10/20 08:02 Quetiapine Fumarate (SEROquel) 50 mg TID PO 07/22/20 17:00 07/25/20 13:04 DC 07/25/20 12:28 Quetiapine Fumarate (SEROquel) 75 mg TID PO 07/25/20 14:00 08/10/20 15:25 DC 08/10/20 13:24 Quetiapine Fumarate (SEROquel) 50 mg 1X ONCE PO 07/25/20 13:15 07/25/20 13:21 DC 07/25/20 13:24 Fluvoxamine Maleate (Luvox) 100 mg DAILY PO 08/02/20 09:00 08/05/20 08:59 DC 08/04/20 08:40 Fluvoxamine Maleate (Luvox) 150 mg DAILY PO 08/05/20 09:00 08/10/20 15:25 DC 08/10/20 07:59 I have reviewed the current psychotropics carefully including drug interactions. Risk benefit ratio favors no change other than as noted in my dictated progress note. Diagnosis: Problems: (1) OCD (obsessive compulsive disorder) (2) Anxiety disorder, unspecified (3) Intellectual disability (4) Psychotic disorder (5) Impulse control disorder, unspecified BRE WYLIE MD Aug 10, 2020 22:08
--- NOTE | 2020-08-11 23:54 | DS ---
DATE OF DISCHARGE: 08/10/2020 DISCHARGE SUMMARY/PSYCHIATRIC PROGRESS NOTE This is a late entry 08/10/2020 covers the elements not covered in my initial note. REASON FOR ADMISSION: Please refer to the admission history for details. Briefly, the patient is a 65-year-old male referred to us from [facility] with a diagnosis of intellectual disability, OCD, and psychotic symptoms. The patient had been extremely obsessive, impulsive, disruptive at the facility, unmanageable. He had failed outpatient psychiatric interventions resulting in this referral. SIGNIFICANT FINDINGS AND CLINICAL COURSE: Following admission, the patient was seen daily individually by myself from a psychiatric standpoint, medical followup with Dr. Hernandes/Dr. Harvey. The patient is extremely obsessive, repetitive, very difficult to redirect, agitated with marked mood lability. Adjustments were made in his psychotropics. He seemed to respond to a combination of Risperdal 3 mg b.i.d., Seroquel 50 mg t.i.d., Namenda 10 mg b.i.d., Luvox 150 mg a day, Klonopin 2 mg q.i.d., Depakote 500 mg a.m. and 1000 mg at bedtime, level therapeutic at 89. At the time of discharge, he was on two scheduled atypical antipsychotics since he had failed treatment on single agents. [facility], consideration should be given to reducing Seroquel by 25 mg a day every 2 weeks until it is discontinued. Later, Klonopin could be tapered as well. Final decision of this would have to be made by the treating psychiatrist at the facility. REVIEW OF SYSTEMS: Prior to discharge on 08/10/2020, no CV, , pulmonary, eye, ENT system symptoms on review. MENTAL STATUS EXAMINATION: Oriented to himself and situation. Speech coherent, has some latency. Abstraction fair, computation impaired, language function intact. Much less obsessive and anxious. No suicidal or homicidal ideation. LABORATORY DATA: Reviewed. FINAL DIAGNOSES: Obsessive-compulsive disorder, impulse control disorder, anxiety disorder, and unspecified intellectual disability. Rest unchanged from admission. DISCHARGE MEDICATIONS: Please refer to the MRAD. DISCHARGE INSTRUCTIONS: Outpatient psychiatric and medical followup at the nursing staff. VISHAL DR: Mesha TID: [id number]
== END 2020-08-10 15:00 | DRG 882 ==
LOC: GEROPSY 11:18
PROVIDERS: ADMIT Psychiatry & Neurology Psychiatry; ATTEND Psychiatry & Neurology Psychiatry
DX: F42.9 Obsessive-compulsive disorder, unspecified (principal); F70 Mild intellectual disabilities; F41.9 Anxiety disorder, unspecified; F63.9 Impulse disorder, unspecified; E11.9 Type 2 diabetes mellitus without complications; E78.5 Hyperlipidemia, unspecified; F29 Unspecified psychosis not due to a substance or known physiological condition; F31.9 Bipolar disorder, unspecified; G47.00 Insomnia, unspecified; I10 Essential (primary) hypertension; Z66 Do not resuscitate; Z79.899 Other long term (current) drug therapy; Z91.19 Patient's noncompliance with other medical treatment and regimen
CPT/HCPCS: 36415; 80053; 80061; 80164; 81001; 82306; 82607; 82947; 83036; 83540; 83550; 83735; 84436; 84443; 84480; 85025; 85379; 86592; 93005; G0378; G0379; U0003